=== PATIENT | male | born 1930 | race Caucasian/White ===

== ENCOUNTER 2016-07-26 14:30 | Inpatient (IN) | payer MEDICARE, BC ==
[2016-07-26 14:37] LABS: Glucose,Whole Blood 190 mg/dL (75-99)
[2016-07-26] MEDS ORDERED: SODIUM CHLORIDE 0.9% 1,000 ML IV ONE ×4 (14:48→21:50)
--- NOTE | 2016-07-26 14:48 | ED ---
General Adult HPI - General Chief complaint: Altered Mental Status Stated complaint: unresponsive Time Seen by Provider: 07/26/16 14:30 Source: EMS, RN notes reviewed Mode of arrival: EMS Limitations: no limitations - History of Present Illness Initial comments: This is an 85-year-old male who presents emergency part with past medical history significant for stroke and was sent to a longterm. According to staff there he was conversing with staff approximate hour before he was then found unresponsive. Staff states prior to that he was acting at his baseline in the room no episodes of fever is difficult to breathing or complaints of chest pain or abdominal pain according to staff there was no episodes of vomiting but the patient did have some loose diarrhea and they brought in a sample. Patient is unable to give any history because he is unresponsive though he does respond to painful stimuli with moaning. No other history was available at this time per EMS or patient and there was no family member or staff member present with the patient. - Related Data Home Medications Medication Instructions Recorded Confirmed Insuln Asp Prt/Insulin Aspart 30 units SQ HS 05/29/14 07/26/16 [NovoLOG MIX 70-30 VIAL] Insuln Asp Prt/Insulin Aspart 35 units SQ QAM 05/29/14 07/26/16 [NovoLOG MIX 70-30 VIAL] Lovastatin 40 mg PO HS@2100 05/29/14 07/26/16 hydrALAZINE HCL [Apresoline] 25 mg PO BID 07/05/16 07/26/16 Carbidopa-Levodopa 25-100 mg 1 tab PO BID 07/26/16 07/26/16 [Sinemet 25-100 mg] Cholecalciferol [Vitamin D3] 1,000 unit PO HS 07/26/16 07/26/16 Cyanocobalamin [Vitamin B-12] 500 mcg PO DAILY 07/26/16 07/26/16 Midodrine HCl [ProAmatine] 10 mg PO TID 07/26/16 07/26/16 Omeprazole 20 mg PO DAILY 07/26/16 07/26/16 Previous Rx's Medication Instructions Recorded Metoprolol Tartrate [Lopressor] 25 mg PO BID #1 tab 06/12/14 Allergies Allergy/AdvReac Type Severity Reaction Status Date / Time dipyridamole Allergy Confusion Verified 07/26/16 14:41 [From Persantine] Review of Systems ROS Statement: Those systems with pertinent positive or pertinent negative responses have been documented in the HPI. ROS Other: All systems not noted in ROS Statement are negative. Past Medical History Past Medical History: Coronary Artery Disease (CAD), COPD, Diabetes Mellitus, GERD/Reflux, Hyperlipidemia, Hypertension, Memory Impairment, Myocardial Infarction ([place]), Osteoarthritis (OA), Prostate Disorder, Renal Disease Additional Past Medical History / Comment(s): BASAL CANCER EARLOBES. Last Myocardial Infarction Date:: 2001 History of Any Multi-Drug Resistant Organisms: None Reported Past Surgical History: Appendectomy, Heart Catheterization With Stent, Orthopedic Surgery Additional Past Surgical History / Comment(s): VON CATARACT REMOVAL, LEFT TKA Past Anesthesia/Blood Transfusion Reactions: No Reported Reaction Date of Last Stent Placement:: 2001 Past Psychological History: No Psychological Hx Reported Smoking Status: Former smoker Past Alcohol Use History: None Reported Past Drug Use History: None Reported - Past Family History Brother(s) Family Medical History: Diabetes Mellitus (Patient has half brother with diabetes mellitus type 2.) Father Family Medical History: Unable to Obtain (Patient didn't know much about his father he walked away before he was born.) Mother Family Medical History: Unable to Obtain (Mother of an unknown cause.) Son(s) Family Medical History: No Reported History (Patient has 4 sons no major medical problems) General Exam - General Exam Comments Initial Comments: GENERAL: Patient is well-developed and well-nourished. Patient is nontoxic and well- hydrated and is in no acute distress. Patient is unresponsive to any verbal commands he does moan and groan to painful stimuli ENT: Neck is soft and supple. No significant lymphadenopathy is noted. Oropharynx is clear. Tongue is very dry. Neck has full range of motion without eliciting any pain. EYES: The sclera were anicteric and conjunctiva were pink and moist. Extraocular movements were intact and pupils were equal round and reactive to light. Eyelids were unremarkable. PULMONARY: Unlabored respirations. Good breath sounds bilaterally. No audible rales rhonchi or wheezing was noted. CARDIOVASCULAR: There is a regular rate and rhythm without any murmurs gallops or rubs. ABDOMEN: Soft and nontender with normal bowel sounds. No palpable organomegaly was noted. There is no palpable pulsatile mass. SKIN: Skin is clear with no lesions or rashes and otherwise unremarkable. NEUROLOGIC: Patient patient is unresponsive and will moan and groan and withdraw to painful stimuli. MUSCULOSKELETAL: Normal extremities with adequate strength and full range of motion. No lower extremity swelling or edema. No calf tenderness. LYMPHATICS: No significant lymphadenopathy is noted PSYCHIATRIC: Unable to assess secondary to the patient being unresponsive Limitations: no limitations Course Vital Signs 07/26/16 07/26/16 07/26/16 14:31 15:52 16:18 Temperature 99.1 F 101.4 F H Pulse Rate 99 90 Respiratory 18 18 Rate Blood Pressure 108/58 116/68 O2 Sat by Pulse 93 L 97 Oximetry Medical Decision Making - Medical Decision Making EKG showed sinus rhythm with occasional PAC at 90 bpm KS interval is on a 56 dresses 86 QT interval 354 QTC is 451. Patient's EKG shows no ST segment elevation or depression or T-wave abdomen is noted. I spoke with the patient's and she did not want any CPR were placed and the patient on a ventilator. Patient's chest x-ray showed no acute amount. He. Patient was septic started on Levaquin given 3 L of fluid spoke with Dr. Rogers get the patient admitted spoke with the ICU doctor. I wrote admitting orders - Lab Data Result diagrams: 07/26/16 14:39 07/26/16 14:39 Lab Results 07/26/16 07/26/16 07/26/16 Range/Units 14:36 14:39 14:39 WBC 19.2 H (3.8-10.6) k/uL RBC 5.43 (4.30-5.90) m/uL Hgb 16.3 (13.0-17.5) gm/dL Hct 50.4 (39.0-53.0) % MCV 92.8 (80.0-100.0) fL MCH 30.0 (25.0-35.0) pg MCHC 32.3 (31.0-37.0) g/dL RDW 14.8 (11.5-15.5) % Plt Count 188 (150-450) k/uL Neutrophils % 87 % Lymphocytes % 5 % Monocytes % 5 % Eosinophils % 0 % Basophils % 0 % Neutrophils # 16.8 H (1.3-7.7) k/uL Lymphocytes # 1.0 (1.0-4.8) k/uL Monocytes # 1.0 (0-1.0) k/uL Eosinophils # 0.0 (0-0.7) k/uL Basophils # 0.0 (0-0.2) k/uL PT (9.0-12.0) sec INR (<1.1) APTT (22.0-30.0) sec Sodium (137-145) mmol/L Potassium (3.5-5.1) mmol/L Chloride (98-107) mmol/L Carbon Dioxide (22-30) mmol/L Anion Gap mmol/L BUN (9-20) mg/dL Creatinine (0.66-1.25) mg/dL Est GFR (MDRD) Af Amer (>60 ml/min/1.73 sqM) Est GFR (MDRD) Non-Af (>60 ml/min/1.73 sqM) Glucose (74-99) mg/dL POC Glucose (mg/dL) 190 H (75-99) mg/dL POC Glu Telephone Exchange Operator ID [place] Miranda Plasma Lactic Acid Yovanny (0.7-2.0) mmol/L Calcium (8.4-10.2) mg/dL Total Bilirubin (0.2-1.3) mg/dL AST (17-59) U/L ALT (21-72) U/L Alkaline Phosphatase (38-126) U/L Total Creatine Kinase 24 L (55-170) U/L CK-MB (CK-2) 0.4 (0.0-2.4) ng/mL CK-MB (CK-2) Rel Index 1.7 Troponin I 0.148 H* (0.000-0.034) ng/mL Total Protein (6.3-8.2) g/dL Albumin (3.5-5.0) g/dL 07/26/16 07/26/16 07/26/16 Range/Units 14:39 14:39 14:39 WBC (3.8-10.6) k/uL RBC (4.30-5.90) m/uL Hgb (13.0-17.5) gm/dL Hct (39.0-53.0) % MCV (80.0-100.0) fL MCH (25.0-35.0) pg MCHC (31.0-37.0) g/dL RDW (11.5-15.5) % Plt Count (150-450) k/uL Neutrophils % % Lymphocytes % % Monocytes % % Eosinophils % % Basophils % % Neutrophils # (1.3-7.7) k/uL Lymphocytes # (1.0-4.8) k/uL Monocytes # (0-1.0) k/uL Eosinophils # (0-0.7) k/uL Basophils # (0-0.2) k/uL PT 32.9 H (9.0-12.0) sec INR 3.4 (<1.1) APTT 32.4 H (22.0-30.0) sec Sodium 145 (137-145) mmol/L Potassium 4.6 (3.5-5.1) mmol/L Chloride 105 (98-107) mmol/L Carbon Dioxide 20 L (22-30) mmol/L Anion Gap 20 mmol/L BUN 53 H (9-20) mg/dL Creatinine 3.90 H (0.66-1.25) mg/dL Est GFR (MDRD) Af Amer 18 (>60 ml/min/1.73 sqM) Est GFR (MDRD) Non-Af 15 (>60 ml/min/1.73 sqM) Glucose 205 H (74-99) mg/dL POC Glucose (mg/dL) (75-99) mg/dL POC Glu Telephone Exchange Operator ID Plasma Lactic Acid Yovanny 4.0 H* (0.7-2.0) mmol/L Calcium 8.5 (8.4-10.2) mg/dL Total Bilirubin 1.5 H (0.2-1.3) mg/dL AST 27 (17-59) U/L ALT 23 (21-72) U/L Alkaline Phosphatase 87 (38-126) U/L Total Creatine Kinase (55-170) U/L CK-MB (CK-2) (0.0-2.4) ng/mL CK-MB (CK-2) Rel Index Troponin I (0.000-0.034) ng/mL Total Protein 6.3 (6.3-8.2) g/dL Albumin 3.0 L (3.5-5.0) g/dL Critical Care Time Critical Care Time: Yes Total Critical Care Time: 35 Disposition Clinical Impression: Urinary tract infection, Sepsis, Diarrhea Disposition: ADMITTED IP TO THIS HOSP Referrals: Marilyn Schofield MD [Primary Care Provider] - 1-2 days Time of Disposition: 16:40
[2016-07-26 15:26] LABS: Basophils % (A) 0 %; CHCM 32.5; Eosinophils % (A) 0 %; HCT 50.4 % (39.0-53.0); HDW 2.56; HGB 16.3 gm/dL (13.0-17.5); INR 3.4 (<1.1); Luc # (Auto) 0.43; Luc % (Auto) 2; Lymphocytes % (A) 5 %; MCHC 32.3 g/dL (31.0-37.0); MCV 92.8 fL (80.0-100.0); Monocytes % (A) 5 %; Neutrophils # (A) 16.8 k/uL (1.3-7.7); Neutrophils % (A) 87 %; Partial Thromboplastin Time 32.4 sec (22.0-30.0); Prothrombin Time 32.9 sec (9.0-12.0); RBC 5.43 m/uL (4.30-5.90); RDW 14.8 % (11.5-15.5); WBC 19.2 k/uL (3.8-10.6); WBC (Perox) 19.51
[2016-07-26 15:29] LABS: Calcium 8.5 mg/dL (8.4-10.2); Potassium 4.6 mmol/L (3.5-5.1); Total Bilirubin 1.5 mg/dL (0.2-1.3); Total Protein 6.3 g/dL (6.3-8.2)
--- NOTE | 2016-07-26 15:31 | CT ---
EXAMINATION TYPE: CT brain wo con DATE OF EXAM: 07/26/2016 3:22 PM COMPARISON: NONE INDICATION: Patient poor historian DLP: 1289.5 mGycm, Automated exposure control for dose reduction was used. CONTRAST: None CT of the brain is performed utilizing 3 mm thick sections through the posterior fossa and 3 mm thick sections through the remaining calvarium. Study is performed within 24 hours of arrival to the hosp ital. No abnormal hyperdensity is present to suggest an acute intracranial hemorrhage. No mass lesion is evident. No acute infarcts are evident. There is an old right basal ganglion lacunar infarct present. Perivent ricular white matter hypodensity is present compatible with chronic white matter ischemic changes. Ventricles and sulci are prominent for the patient age. Paranasal sinuses and mastoid air cells within the [id number] are clear. IMPRESSIONS: 1. Atrophy with chronic appearing white matter ischemic changes and old right basal ganglion infarc t. Findings are stable from 2011.
--- NOTE | 2016-07-26 15:35 | XR ---
EXAMINATION TYPE: XR chest 2V DATE OF EXAM: 07/26/2016 3:24 PM COMPARISON: 07/05/2016 INDICATION: Altered mental status found unresponsive TECHNIQUE: Frontal and lateral views of the chest are obtained. FINDINGS: The heart size is normal. The pulmonary vasculature is normal. There appears to be some atelectasis at the right lung base. Previous left lung base infiltrate is re solved. A 1.3 cm nodule is at the left lung base. IMPRESSION: 1. Mild atelectasis right lung base. 2. Stable nodule left lung base.
[2016-07-26 15:53] LABS: Creatine Kinase MB 0.4 ng/mL (0.0-2.4); Troponin I 0.148 ng/mL (0.000-0.034)
[2016-07-26] MEDS ORDERED: LEVOFLOXACIN 750MG-D5W PMX 750 MG in DEXTROSE/WATER 1 150ML.BAG IVPB STA (15:56)
[2016-07-26] MEDS ORDERED: LEVOFLOXACIN 750MG-D5W PMX 750 MG in DEXTROSE/WATER 1 150ML.BAG IVPB SCH (16:00)
[2016-07-26] MEDS ORDERED: IV VANCOMYCIN PER PHARMACY 1 EACH MISC MISCELLANE PRN (16:50)
[2016-07-26] MEDS ORDERED: VANCOMYCIN 1,750 MG in SODIUM CHLORIDE 0.9% 250 ML IVPB STA (16:56)
[2016-07-26 17:16] LABS: Bacteria,Urine Rare /hpf; Particle Count 558955; WBC,Urine >182 /hpf (0-5)
[2016-07-26 17:44] LABS: Glucose,Whole Blood 182 mg/dL (75-99)
[2016-07-26] MEDS: SODIUM CHLORIDE 0.9% 1,000 ML IV SCH (17:54)
[2016-07-26 20:39] LABS: INR 3.7 (<1.1); Partial Thromboplastin Time 33.4 sec (22.0-30.0); Prothrombin Time 36.4 sec (9.0-12.0)
[2016-07-26 20:55] LABS: Creatine Kinase MB 0.8 ng/mL (0.0-2.4)
[2016-07-26 20:59] LABS: Troponin I 0.142 ng/mL (0.000-0.034)
[2016-07-26] MEDS ORDERED: IPRATROPIUM-ALBUTEROL 3 ML NEB INHALATION PRN (23:03)
[2016-07-27] MEDS ORDERED: IPRATROPIUM-ALBUTEROL 3 ML NEB INHALATION SCH
[2016-07-27 00:06] LABS: Glucose,Whole Blood 135 mg/dL (75-99)
[2016-07-27] MEDS: INSULIN LISPRO (humaLOG) 300 UNIT/3 ML VIAL SQ SCH ×4 (00:23→17:51)
[2016-07-27] MEDS: METOPROLOL TARTRATE 5 MG/5 ML VIAL IVP SCH ×3 (00:50→23:35)
[2016-07-27] MEDS: SODIUM CHLORIDE 0.9% 1,000 ML IV SCH ×2 (03:15→15:23)
[2016-07-27 04:05] LABS: Basophils % (A) 0 %; CH 29.7; CHCM 31.9; Eosinophils % (A) 0 %; HDW 2.66; HGB 14.9 gm/dL (13.0-17.5); Luc # (Auto) 0.37; Luc % (Auto) 2; Lymphocytes # (A) 0.9 k/uL (1.0-4.8); Lymphocytes % (A) 4 %; MCH 29.6 pg (25.0-35.0); MCHC 31.6 g/dL (31.0-37.0); MCV 93.7 fL (80.0-100.0); Monocytes # (A) 1.8 k/uL (0-1.0); Monocytes % (A) 8 %; Neutrophils # (A) 19.1 k/uL (1.3-7.7); Neutrophils % (A) 86 %; RBC 5.02 m/uL (4.30-5.90); RDW 14.8 % (11.5-15.5); WBC 22.1 k/uL (3.8-10.6); WBC (Perox) 21.91
[2016-07-27 04:14] LABS: INR 3.7 (<1.1); Partial Thromboplastin Time 32.8 sec (22.0-30.0); Prothrombin Time 36.5 sec (9.0-12.0)
[2016-07-27 04:15] LABS: Calcium 7.6 mg/dL (8.4-10.2); Phosphorous 4.5 mg/dL (2.5-4.5); Potassium 3.9 mmol/L (3.5-5.1); Total Bilirubin 1.1 mg/dL (0.2-1.3); Total Protein 5.3 g/dL (6.3-8.2)
[2016-07-27 05:02] LABS: Troponin I 0.123 ng/mL (0.000-0.034)
[2016-07-27] MEDS ORDERED: SODIUM CHLORIDE 0.9% 1,000 ML IV ONE (05:27)
[2016-07-27 06:17] LABS: Glucose,Whole Blood 124 mg/dL (75-99)
[2016-07-27] MEDS: INSULN ASP PRT/INSULIN ASPART 100 UNIT/ML 10 ML VIAL SQ SCH ×3 (06:18→21:25)
[2016-07-27] MEDS ORDERED: Potassium Replacement Protocol 1 EACH MISC MISCELLANE PRN (08:00)
--- NOTE | 2016-07-27 08:27 | XR ---
EXAMINATION TYPE: XR chest 1V DATE OF EXAM: 07/27/2016 6:49 AM COMPARISON: 07/26/2016 HISTORY: Shortness of breath TECHNIQUE: Single frontal view of the chest is obtained. FINDINGS: There is left lower lobe infiltrate. Tiny effusion noted. Underlying COPD noted. No pneumo thorax. Degenerative change of the spine. IMPRESSION: 1. Left lower lobe infiltrate and small effusion.
[2016-07-27] MEDS: IPRATROPIUM-ALBUTEROL 3 ML NEB INHALATION SCH ×4 (08:48→19:08)
[2016-07-27] MEDS: POTASSIUM CHLORIDE 10 MEQ, LIDOCAINE 2% INJ 10 MG in SODIUM CHLORIDE 0.9% 100 ML IV SCH ×2 (09:28→10:57)
[2016-07-27] MEDS: PANTOPRAZOLE 40 MG/10 ML VIAL IV SCH (09:29)
[2016-07-27] MEDS ORDERED: METOPROLOL TARTRATE 25 MG TAB PO SCH (10:30)
[2016-07-27] MEDS ORDERED: Magnesium Replacement Protocol 1 EACH MISC MISCELLANE PRN (10:42)
[2016-07-27] MEDS: PIPERACILLIN-TAZOBACTAM 3.375 GM in DEXTROSE/WATER 1 50ML.BAG IVPB SCH ×2 (10:54→21:38)
--- NOTE | 2016-07-27 11:28 | P.NPCON ---
History of Present Illness - Reason for Consult Consult date: 07/27/16 acute renal failure - Chief Complaint Acute kidney injury and hypotension - History of Present Illness This is a 85-year-old male seen in consultation because of acute kidney injury. His creatinine was 3.9 yesterday, was 1.2. Days ago on 07/10/2016. He came in with history of syncope and was thought to have had a stroke. But at the time of this exam a few hours later he is able to move all his extremities and follows commands. He is oriented 3. He denies any fever chills cough shortness of breath nausea vomiting. He is still is very slow in responding Does seem to have some abdominal discomfort. His past history significant for UTI recently with Pseudomonas on 07/05/2016 3 weeks ago. A computed tomography scan showed a 5 cm aneurysm in 2013. There is a left ureteral stent in 2013 CT. This is no been followed up to the best of my knowledge based on EMR. . His past history significant for coronary artery disease diabetes mellitus COPD prostatism history of acute [place] heart catheterization with stent and as mentioned above left ureteral stent seen on computed tomography scan in 2013. Past Medical History Past Medical History: Coronary Artery Disease (CAD), COPD, Diabetes Mellitus, GERD/Reflux, Hyperlipidemia, Hypertension, Memory Impairment, Myocardial Infarction ([place]), Osteoarthritis (OA), Prostate Disorder, Renal Disease Additional Past Medical History / Comment(s): BASAL CANCER EARLOBES. Last Myocardial Infarction Date:: 2001 History of Any Multi-Drug Resistant Organisms: None Reported Past Surgical History: Appendectomy, Heart Catheterization With Stent, Orthopedic Surgery Additional Past Surgical History / Comment(s): VON CATARACT REMOVAL, LEFT TKA Past Anesthesia/Blood Transfusion Reactions: No Reported Reaction Date of Last Stent Placement:: 2001 Past Psychological History: No Psychological Hx Reported Smoking Status: Former smoker Past Alcohol Use History: None Reported Past Drug Use History: None Reported - Past Family History Brother(s) Family Medical History: Diabetes Mellitus Father Family Medical History: Unable to Obtain Mother Family Medical History: Unable to Obtain Son(s) Family Medical History: No Reported History Medications and Allergies Home Medications Medication Instructions Recorded Confirmed Type Insuln Asp Prt/Insulin Aspart 30 units SQ HS 05/29/14 07/26/16 History [NovoLOG MIX 70-30 VIAL] Insuln Asp Prt/Insulin Aspart 35 units SQ QAM 05/29/14 07/26/16 History [NovoLOG MIX 70-30 VIAL] Lovastatin 40 mg PO HS@2100 05/29/14 07/26/16 History hydrALAZINE HCL [Apresoline] 25 mg PO BID 07/05/16 07/26/16 History Carbidopa-Levodopa 25-100 mg 1 tab PO BID 07/26/16 07/26/16 History [Sinemet 25-100 mg] Cholecalciferol [Vitamin D3] 1,000 unit PO HS 07/26/16 07/26/16 History Cyanocobalamin [Vitamin B-12] 500 mcg PO DAILY 07/26/16 07/26/16 History Midodrine HCl [ProAmatine] 10 mg PO TID 07/26/16 07/26/16 History Omeprazole 20 mg PO DAILY 07/26/16 07/26/16 History Allergies Allergy/AdvReac Type Severity Reaction Status Date / Time dipyridamole Allergy Confusion Verified 07/26/16 14:41 [From Persantine] Physical Exam Vitals: Vital Signs Temp Pulse Pulse Resp BP BP Pulse Ox 07/27/16 10:00 88 28 H 95/55 94 L 07/27/16 09:02 87 07/27/16 09:00 85 27 H 87/51 98 07/27/16 08:50 94 L 07/27/16 08:49 85 07/27/16 08:00 97.9 F 86 27 H 98/53 94 L 07/27/16 07:00 91 25 H 103/49 93 L 07/27/16 06:00 82 24 112/60 94 L 07/27/16 05:00 78 20 98/57 92 L 07/27/16 04:00 97.3 F L 87 24 129/63 92 L 07/27/16 03:00 81 23 91/49 93 L 07/27/16 02:00 81 22 101/60 93 L 07/27/16 01:00 79 23 100/51 92 L 07/27/16 00:00 97.8 F 82 24 108/51 93 L 07/26/16 23:00 84 23 108/57 92 L 07/26/16 22:00 81 18 109/57 93 L 07/26/16 21:00 83 20 110/53 92 L 07/26/16 20:00 98.4 F 82 18 99/57 93 L 07/26/16 19:00 82 29 H 93/52 94 L 07/26/16 18:30 89 28 H 93/52 94 L 07/26/16 18:00 98.6 F 87 103/55 94 L 07/26/16 17:56 98.6 F 87 19 103/55 94 L 07/26/16 17:40 87 07/26/16 17:08 97.9 F 87 18 116/59 96 Intake and Output 07/26/16 07/27/16 07/27/16 22:59 06:59 14:59 Intake Total 500 2700 460 Output Total 45 147 100 Balance 455 2553 360 Intake: IV 500 700 300 Sodium Chloride 0.9% 1, 500 700 300 000 ml @ 100 mls/hr IV . Q10H [facility] Rx#:[id number] Intake, IV Titration 2000 100 Amount Potassium Chloride 10 meq 100 Lidocaine 2% Inj 10 mg In Sodium Chloride 0.9% 100 ml @ 100 mls/hr IV Q1HR [facility] Rx#:[id number] Sodium Chloride 0.9% 1, 1000 000 ml @ 999 mls/hr IV . Q1H1M [facility] Rx#:[id number] Sodium Chloride 0.9% 1, 1000 000 ml @ 999 mls/hr IV . Q1H1M [facility] Rx#:[id number] Oral 60 Output: Urine 45 147 100 Other: Voiding Method Indwelling Catheter Indwelling Catheter Indwelling Catheter # Bowel Movements 2 2 Weight 94.9 kg 96.2 kg 96.2 kg Patient Weight 06:59 Weight 96.2 kg On examination he is arousable follows commands but is slow. HEENT exam no JVP neck is supple no facial asymmetry pupils are equal. Lungs are clear to auscultation fair air entry bilaterally Heart sounds are unremarkable no murmur rub gallop. Abdomen is soft nontender except on the left upper quadrant there is some mild tenderness. Bowel sounds are diminished no masses felt. Extremity exam reveals no edema. Warm to touch. Neurologically he is arousable follows commands is oriented 3 is only weak but no focal motor deficit. Results - Lab Results Most recent lab results Calcium 7.6 mg/dL (8.4-10.2) L 07/27/16 03:33 Phosphorus 4.5 mg/dL (2.5-4.5) 07/27/16 03:33 Magnesium 2.0 mg/dL (1.6-2.3) 07/27/16 03:33 07/27/16 03:33 07/27/16 03:33 Assessment and Plan Plan: Impression. 1. Acute kidney injury with creatinine 3.9 minimal urine output. ATN from sepsis and low blood pressure. Has been given 5 L of fluid without any improvement in his urine output 2. Possible UTI. He had Pseudomonas UTI dated 07/05/20 16. Previous computed tomography scan 2013 showed a left ureteral stent. 3. Mild CK D with a creatinine of 1.2 dated 07/10/2016. 4. Abdominal aortic aneurysm 5 cm based on computed tomography scan 2013 5. Mild gap acidosis with an anion gap of 20 and a bicarb of 20 suggestive of further metabolic alkalosis. The cause of the gap acidosis from septic syndrome and the metabolic alkalosis may be from diuretics. 6. Lactic acidosis lactic acid is 4. 7. Hypotension likely from sepsis troponin is 0.13. Recommendation. Because of significant volume depletion and no urine output further IV fluids might induce pulmonary edema and therefore I would suggest starting him on levo fed. Also obtain computed tomography scan of the abdomen to rule out any hydronephrosis with the previous computed tomography scan 2013 showing a 5 cm aneurysm and a left ureteral stent. Also he had a recent Pseudomonas UTI. Avoid vancomycin.
[2016-07-27] MEDS: NOREPINEPHRINE 4 MG in SODIUM CHLORIDE 0.9% 250 ML IV SCH (12:03)
[2016-07-27] MEDS: CARBIDOPA-LEVODOPA 25-100 MG 1 EACH TAB PO SCH ×2 (12:07→21:25)
[2016-07-27 12:10] LABS: Glucose,Whole Blood 140 mg/dL (75-99)
[2016-07-27 12:16] LABS: Hemoglobin A1C 6.6 % (4.2-6.1)
[2016-07-27] MEDS: MAGNESIUM SULFATE-D5W PMX 1 GM in DEXTROSE/WATER 1 100ML.BAG IVPB SCH ×2 (12:30→15:21)
--- NOTE | 2016-07-27 12:59 | P.HPIM ---
History of Present Illness H&P Date: 07/27/16 Chief Complaint: GIANLUCA/CKD3/UTI with sepsis. This is an 85-year-old male with a previous medical history significant for coronary artery disease status post PCI and stent placement, hypertension and hypertensive cardiovascular disease with left ventricular hypertrophy, hyperlipidemia, history of osteoarthritis, history of kidney stones , enlarged prostate, 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 Patient fell again last night about 9:30 she states he started to fall and she helped him to the floor slowly there was no injury. Patient was unable to get up so she laid a blanket on the floor in a pillow and let him sleep here overnight. This morning she called EMS to help him off the floor and wanted him brought to the hospital checked out and hopefully get her some assistance. he was found to have a significant urinary tract infection with sepsis, chest x-ray showed a tiny left lower lobe infiltrate with a left-sided pleural effusion with the nodules in the lung did not change from 2013. Patient was admitted to the hospital urine culture was done as well as blood culture he was placed on IV antibiotic in the form of Levaquin 750 mg IV piggyback every 24 hours subsequently the patient was discharged to [facility] for physical therapy and rehabilitation under Dr. Schofield service, and the patient was sent into the emergency department at [facility] yesterday because of severe sepsis with acute kidney injury and top of chronic kidney disease he was admitted to the intensive care unit, he was given IV fluid he was seen and evaluated by nephrology because of his acute kidney injury , he was started on IV antibiotic in the form of vancomycin he was taken off his Levaquin, unfortunately patient last hospitalization showed Pseudomonas that resistant to fluoroquinolones and the patient was maintained on Levaquin. Review of Systems Constitutional: Reports chills, Reports chronic pain, Reports fatigue, Reports fever, Reports lethargy, Reports malaise, Reports sweats, Reports weakness, Reports weight loss Eyes: denies blurred vision, denies bulging eye, denies decreased vision Ears: bilateral: decreased hearing Ears, nose, mouth and throat: Denies dysphagia, Denies neck lump, Denies sore throat Cardiovascular: Reports decreased exercise tolerance, Reports dyspnea on exertion, Reports high blood pressure, Reports shortness of breath, Denies chest pain, Denies phlebitis, Denies rapid heart beat, Denies syncope Respiratory: Reports dyspnea, Denies congestion, Denies cough, Denies cough with sputum, Denies home oxygen, Denies sleep apnea, Denies snoring, Denies wheezing Gastrointestinal: Reports abdominal pain, Reports bloating, Reports change in bowel habits, Reports diarrhea, Reports excessive gas, Reports indigestion, Reports loss of appetite, Reports nausea, Denies vomiting Genitourinary: Reports dysuria, Reports nocturia, Reports polyuria Musculoskeletal: Reports atrophy, Reports frequent falls, Reports gait dysfunction, Reports low back pain Musculoskeletal: absent: ankle pain, ankle stiffness, ankle swelling, elbow pain , elbow stiffness, elbow swelling, foot pain, foot stiffness, foot swelling, hand pain, hand stiffness, hand swelling, hip pain, hip stiffness, hip swelling , knee pain, knee stiffness, knee swelling, shoulder pain, shoulder stiffness, shoulder swelling, wrist pain, wrist stiffness, wrist swelling Integumentary: Denies pruritus, Denies rash Neurological: Reports confusion, Reports gait dysfunction, Reports memory loss, Reports motor disturbance, Reports spasticity, Reports tremors, Reports weakness Psychiatric: Reports anxiety, Reports memory loss, Denies depression, Denies suicidal ideation Endocrine: Denies fatigue, Denies weight change Past Medical History Past Medical History: Coronary Artery Disease (CAD), COPD, Diabetes Mellitus, GERD/Reflux, Hyperlipidemia, Hypertension, Memory Impairment, Myocardial Infarction ([place]), Neurologic Disorder (Parkinson), Osteoarthritis (OA), Prostate Disorder, Renal Disease Additional Past Medical History / Comment(s): BASAL CANCER EARLOBES. Last Myocardial Infarction Date:: 2001 History of Any Multi-Drug Resistant Organisms: None Reported Past Surgical History: Appendectomy, Heart Catheterization With Stent, Orthopedic Surgery Additional Past Surgical History / Comment(s): VON CATARACT REMOVAL, LEFT TKA Past Anesthesia/Blood Transfusion Reactions: No Reported Reaction Date of Last Stent Placement:: 2001 Past Psychological History: No Psychological Hx Reported Smoking Status: Former smoker Past Alcohol Use History: None Reported Past Drug Use History: None Reported - Past Family History Brother(s) Family Medical History: Diabetes Mellitus Father Family Medical History: Unable to Obtain Mother Family Medical History: Unable to Obtain Son(s) Family Medical History: No Reported History Medications and Allergies Home Medications Medication Instructions Recorded Confirmed Type Insuln Asp Prt/Insulin Aspart 30 units SQ HS 05/29/14 07/26/16 History [NovoLOG MIX 70-30 VIAL] Insuln Asp Prt/Insulin Aspart 35 units SQ QAM 05/29/14 07/26/16 History [NovoLOG MIX 70-30 VIAL] Lovastatin 40 mg PO HS@2100 05/29/14 07/26/16 History hydrALAZINE HCL [Apresoline] 25 mg PO BID 07/05/16 07/26/16 History Carbidopa-Levodopa 25-100 mg 1 tab PO BID 07/26/16 07/26/16 History [Sinemet 25-100 mg] Cholecalciferol [Vitamin D3] 1,000 unit PO HS 07/26/16 07/26/16 History Cyanocobalamin [Vitamin B-12] 500 mcg PO DAILY 07/26/16 07/26/16 History Midodrine HCl [ProAmatine] 10 mg PO TID 07/26/16 07/26/16 History Omeprazole 20 mg PO DAILY 07/26/16 07/26/16 History Allergies Allergy/AdvReac Type Severity Reaction Status Date / Time dipyridamole Allergy Confusion Verified 07/26/16 14:41 [From Persantine] Physical Exam Vitals: Vital Signs Temp Pulse Pulse Resp BP BP Pulse Ox 07/27/16 12:28 88 07/27/16 12:09 89 07/27/16 11:00 98.2 F 90 31 H 77/60 95 07/27/16 10:00 88 28 H 95/55 94 L 07/27/16 09:02 87 07/27/16 09:00 85 27 H 87/51 98 07/27/16 08:50 94 L 07/27/16 08:49 85 07/27/16 08:00 97.9 F 86 27 H 98/53 94 L 07/27/16 07:00 91 25 H 103/49 93 L 07/27/16 06:00 82 24 112/60 94 L 07/27/16 05:00 78 20 98/57 92 L 07/27/16 04:00 97.3 F L 87 24 129/63 92 L 07/27/16 03:00 81 23 91/49 93 L 07/27/16 02:00 81 22 101/60 93 L 07/27/16 01:00 79 23 100/51 92 L 07/27/16 00:00 97.8 F 82 24 108/51 93 L 07/26/16 23:00 84 23 108/57 92 L 07/26/16 22:00 81 18 109/57 93 L 07/26/16 21:00 83 20 110/53 92 L 07/26/16 20:00 98.4 F 82 18 99/57 93 L 07/26/16 19:00 82 29 H 93/52 94 L 07/26/16 18:30 89 28 H 93/52 94 L 07/26/16 18:00 98.6 F 87 103/55 94 L 07/26/16 17:56 98.6 F 87 19 103/55 94 L 07/26/16 17:40 87 07/26/16 17:08 97.9 F 87 18 116/59 96 Intake and Output 07/26/16 07/27/16 07/27/16 22:59 06:59 14:59 Intake Total 500 2700 692.5 Output Total 45 147 145 Balance 455 2553 547.5 Intake: IV 500 700 500 Sodium Chloride 0.9% 1, 500 700 500 000 ml @ 100 mls/hr IV . Q10H [facility] Rx#:[id number] Intake, IV Titration 2000 132.5 Amount Norepinephrine 4 mg In 7.5 Sodium Chloride 0.9% 250 ml @ Titrate IV .Q0M [facility] Rx#:[id number] Piperacillin-Tazobactam 3 25.0 .375 gm In Dextrose/Water 1 50ml.bag @ 12.5 mls/hr IVPB Q12HR [facility] Rx#: [id number] Potassium Chloride 10 meq 100 Lidocaine 2% Inj 10 mg In Sodium Chloride 0.9% 100 ml @ 100 mls/hr IV Q1HR [facility] Rx#:[id number] Sodium Chloride 0.9% 1, 1000 000 ml @ 999 mls/hr IV . Q1H1M [facility] Rx#:[id number] Sodium Chloride 0.9% 1, 1000 000 ml @ 999 mls/hr IV . Q1H1M [facility] Rx#:[id number] Oral 60 Output: Urine 45 147 145 Other: Voiding Method Indwelling Catheter Indwelling Catheter Indwelling Catheter # Bowel Movements 2 3 Weight 94.9 kg 96.2 kg 96.2 kg Patient Weight 07/28/16 06:59 Weight 96.2 kg - Constitutional General appearance: average body habitus, severe distress - EENT Eyes: anicteric sclerae, PERRLA, no ptosis, no scleral icterus, normal appearance ENT: hard of hearing, normal oropharynx, no thrush Ears: bilateral: normal - Neck Neck: no lymphadenopathy, normal ROM, no rigidity, no stridor, no thyromegaly Carotids: bilateral: upstroke delayed Thyroid: bilateral: normal size - Respiratory Respiratory: bilateral: diminished, dullness, rales, rhonchi, wheezing, prolonged expiration - Cardiovascular Rhythm: regular Heart sounds: normal: S1, S2 Abnormal Heart Sounds: systolic murmur, no S3 Gallop, no S4 Gallop - Gastrointestinal General gastrointestinal: decreased bowel sounds, distended, rigid, tenderness, no umbilical hernia, no ventral hernia Localized gastrointestinal: tender: diffuse - Integumentary Integumentary: flushed - Neurologic Neurologic: CNII-XII intact - Musculoskeletal Musculoskeletal: generalized weakness, strength equal bilaterally - Psychiatric Psychiatric: no A&O x's 3, no appropriate affect, no intact judgment & insight Results CBC & Chem 7: 07/27/16 03:33 07/27/16 03:33 Labs: Abnormal Lab Results - Last 24 Hours (Table) 07/26/16 07/26/16 07/26/16 Range/Units 16:55 17:41 20:08 WBC (3.8-10.6) k/uL Plt Count (150-450) k/uL Neutrophils # (1.3-7.7) k/uL Lymphocytes # (1.0-4.8) k/uL Monocytes # (0-1.0) k/uL PT 36.4 H (9.0-12.0) sec APTT 33.4 H (22.0-30.0) sec Sodium (137-145) mmol/L Chloride (98-107) mmol/L Carbon Dioxide (22-30) mmol/L BUN (9-20) mg/dL Creatinine (0.66-1.25) mg/dL Glucose (74-99) mg/dL POC Glucose (mg/dL) 182 H (75-99) mg/dL Calcium (8.4-10.2) mg/dL ALT (21-72) U/L Total Creatine Kinase (55-170) U/L Troponin I (0.000-0.034) ng/mL Total Protein (6.3-8.2) g/dL Albumin (3.5-5.0) g/dL Urine WBC >182 H (0-5) /hpf Urine WBC Clumps Many H (None) /hpf Urine Bacteria Rare H (None) /hpf 07/26/16 07/27/16 07/27/16 Range/Units 20:08 00:03 03:33 WBC (3.8-10.6) k/uL Plt Count (150-450) k/uL Neutrophils # (1.3-7.7) k/uL Lymphocytes # (1.0-4.8) k/uL Monocytes # (0-1.0) k/uL PT (9.0-12.0) sec APTT (22.0-30.0) sec Sodium (137-145) mmol/L Chloride (98-107) mmol/L Carbon Dioxide (22-30) mmol/L BUN (9-20) mg/dL Creatinine (0.66-1.25) mg/dL Glucose (74-99) mg/dL POC Glucose (mg/dL) 135 H (75-99) mg/dL Calcium (8.4-10.2) mg/dL ALT (21-72) U/L Total Creatine Kinase 45 L 40 L (55-170) U/L Troponin I 0.142 H* 0.123 H* (0.000-0.034) ng/mL Total Protein (6.3-8.2) g/dL Albumin (3.5-5.0) g/dL Urine WBC (0-5) /hpf Urine WBC Clumps (None) /hpf Urine Bacteria (None) /hpf 07/27/16 07/27/16 07/27/16 Range/Units 03:33 03:33 03:33 WBC 22.1 H (3.8-10.6) k/uL Plt Count 139 L (150-450) k/uL Neutrophils # 19.1 H (1.3-7.7) k/uL Lymphocytes # 0.9 L (1.0-4.8) k/uL Monocytes # 1.8 H (0-1.0) k/uL PT 36.5 H (9.0-12.0) sec APTT 32.8 H (22.0-30.0) sec Sodium 147 H (137-145) mmol/L Chloride 115 H (98-107) mmol/L Carbon Dioxide 17 L (22-30) mmol/L BUN 62 H (9-20) mg/dL Creatinine 3.40 H (0.66-1.25) mg/dL Glucose 150 H (74-99) mg/dL POC Glucose (mg/dL) (75-99) mg/dL Calcium 7.6 L (8.4-10.2) mg/dL ALT 17 L (21-72) U/L Total Creatine Kinase (55-170) U/L Troponin I (0.000-0.034) ng/mL Total Protein 5.3 L (6.3-8.2) g/dL Albumin 2.4 L (3.5-5.0) g/dL Urine WBC (0-5) /hpf Urine WBC Clumps (None) /hpf Urine Bacteria (None) /hpf 07/27/16 07/27/16 Range/Units 06:14 12:08 WBC (3.8-10.6) k/uL Plt Count (150-450) k/uL Neutrophils # (1.3-7.7) k/uL Lymphocytes # (1.0-4.8) k/uL Monocytes # (0-1.0) k/uL PT (9.0-12.0) sec APTT (22.0-30.0) sec Sodium (137-145) mmol/L Chloride (98-107) mmol/L Carbon Dioxide (22-30) mmol/L BUN (9-20) mg/dL Creatinine (0.66-1.25) mg/dL Glucose (74-99) mg/dL POC Glucose (mg/dL) 124 H 140 H (75-99) mg/dL Calcium (8.4-10.2) mg/dL ALT (21-72) U/L Total Creatine Kinase (55-170) U/L Troponin I (0.000-0.034) ng/mL Total Protein (6.3-8.2) g/dL Albumin (3.5-5.0) g/dL Urine WBC (0-5) /hpf Urine WBC Clumps (None) /hpf Urine Bacteria (None) /hpf Thrombosis Risk Factor Assmnt - DVT/VTE Prophylaxis DVT/VTE Prophylaxis: Pharmacologic Prophylaxis ordered, Mechanical Prophylaxis ordered - Choose All That Apply Each Factor Represents 1 point: Abnormal pulmonary function (COPD), Medical pt on bed rest, Sepsis (< 1month) Each Risk Factor Represents 3 Points: Age 75 years or older Thrombosis Risk Factor Assessment Total Risk Factor Score: 6 Thrombosis Risk Factor Assessment Level: High Risk Assessment and Plan Plan: Assessment and plan: 1. Urinary tract infection with severe sepsis and possible pseudomonas. ICU, IV fluid resuscitation in the form of normal sitting, Levophed, discontinue Vancomycin, start the patient on Zosyn 2.25 g IV piggyback every 8 hours, urine culture as well as blood culture 2, continue patient also on fluid resuscitation, monitor the patient the CMP, lactic acid, as well as WBC. 2. Leukocytosis secondary to severe sepsis. Continue IV fluid resuscitation, continue IV antibiotic, repeat CBC in the next 24 hours. 3. 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 Continue IV fluid resuscitation, discontinue vancomycin, discontinue Levaquin, continue IV fluid resuscitation, continue Levophed, nephrology consultation, computed tomography scan of the abdomen and pelvis with oral contrast only. 4. Severe abdominal pain with a prior history of abdominal aortic aneurysm back in 2013. We will obtain computed tomography scan of the abdomen and pelvis with oral contrast only. 5. Severe diarrhea. Check the stool for C. difficile, toxins a and B, check the stool culture, continue IV fluid resuscitation, discontinue vancomycin. 6. Anion gap metabolic acidosis as well as metabolic alkalosis. Continue IV fluid resuscitation, discontinue diuretics. 7. Lactic acidosis. Due to sepsis, continue IV fluid, continue IV antibiotic, repeat lactic acid in the next 24 hours. 8. CAD post-PCI. Continue aspirin 81 mg once every day, pravastatin 40, bedtime, hold off metoprolol for now. 9. Hypertension and hypertensive cardiovascular disease. Currently hypotensive we'll hold off antihypertensive medicine. 10. Enlarged prostate. Currently has a Burr catheter in place. 11. Parkinsonism. Currently on Sinemet 25/100 one tablet orally twice every day. 12. Diabetes mellitus type 2 with diabetic polyneuropathy. Continue patient on NovoLog Mix 70/30, continue patient on BGM 4 times every day. 13. DVT prophylaxis. Continue patient on heparin 5000 units subcutaneously every 12 hours. 14. GI prophylaxis. Protonix 40 mg IV push every 24 hours 15. Admit to inpatient. Estimate a length of stay 2 midnights. 16. No code.
--- NOTE | 2016-07-27 14:47 | CT ---
EXAMINATION TYPE: CT abdomen pelvis wo con DATE OF EXAM: 07/27/2016 2:21 PM COMPARISON: 06/06/2014 HISTORY: Bilateral lower quad pain CT DLP: 1328 mGycm Automated exposure control for dose reduction was used. TECHNIQUE: Helical acquisition of images was performed from the lung bases through the pelvis. FINDINGS: LUNG BASES: Bilateral lower lobe infiltrate noted. Coronary artery calcification noted. 8 mm left upp er lobe pulmonary nodule noted. Correlate for history of malignancy. LIVER/GB: Gallbladder is distended with numerous gallstones layering posteriorly.. PANCREAS: No definite abnormality. Inflammatory changes right lower quadrant are felt to be more like ly related to gallbladder but correlate with serum enzymes for confirmation to exclude pancreatitis.. SPLEEN: No significant abnormality is seen. 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 KIDNEYS: 3.9 cm hypodense lesion suggestive of simple cyst within the left kidney stable. RETROPERITONEAL ADENOPATHY: None visualized URINARY BLADDER: Bladder wall is thickened but decompressed. Prostate markedly enlarged. Burr felix ter noted. Cystitis not excluded.. PELVIC ADENOPATHY: None visualized. OSSEOUS STRUCTURES: Severe degenerative change of the spine.. BOWEL: There is thickening of the wall the right colon and transverse colon with some degree of archana colic inflammatory change. Structure within the rectum noted correlate for rectal tube versus foreign body.. OTHER: 4.5 x 4 cm infrarenal abdominal aortic aneurysm. IVC stent noted. Prostate gland is enlarged. Bladder wall is markedly thickened and there is evidence of a Burr catheter. Small amount of ascites seen. IMPRESSION: GALLBLADDER IS DISTENDED WITH SMALL GALLSTONES LAYERING POSTERIORLY. THERE IS INFLAMMATORY CHANGE IN THE RIGHT UPPER QUADRANT WHICH COULD BEEN THE BASIS OF CHOLECYSTITIS, ALTHOUGH, THERE IS TRANSVERSE C OLON AND RIGHT COLON WALL THICKENING. DIFFERENTIAL WOULD BE COLITIS (INFECTIOUS, INFLAMMATORY OR ISCH EMIC) VERSUS CHOLECYSTITIS CORRELATE CLINICALLY. PROBABLE RECTAL TUBE CORRELATE CLINICALLY STABLE-APPEARING 4.5 CM INFRARENAL ABDOMINAL AORTIC ANEURYSM FEW PROMINENT SMALL BOWEL LOOPS ARE SEEN IN THE LEFT UPPER QUADRANT WHICH MAY BE RELATED TO LOCALIZED ILEUS SMALL AMOUNT OF ASCITES. THERE IS A 8 MM LEFT UPPER LOBE PULMONARY NODULE. BILATERAL LOWER LOBE INFILTRATES. SEVERE PROSTATIC HYPERTROPHY. 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 BLADDER CONTENTS SOMEWHA T HYPERDENSE CORRELATE TO EXCLUDE HEMORRHAGE WITHIN THE BLADDER.
--- NOTE | 2016-07-27 14:50 | P.CNPUL ---
History of Present Illness Consult date: 07/27/16 Reason for consult: other (Altered mental status) Chief complaint: Altered mental status History of present illness: This is an 85-year-old male who presented to the emergency department from [facility] for altered mental status. The patient apparently had been having multiple falls. The patient was found emergency department to have turbid urine, hypotension, sepsis. The patient was admitted to the intensive care unit. The patient has been given over 5 L of IV fluids. Urine output remains marginal. He has been started on Levophed at 2 mcg/m. During his last hospitalization in June the patient was found to have a urinary tract infection with Pseudomonas. Review of Systems ROS unobtainable: due to mental status Past Medical History Past Medical History: Coronary Artery Disease (CAD), COPD, Diabetes Mellitus, GERD/Reflux, Hyperlipidemia, Hypertension, Memory Impairment, Myocardial Infarction ([place]), Neurologic Disorder (Parkinson), Osteoarthritis (OA), Prostate Disorder, Renal Disease Additional Past Medical History / Comment(s): BASAL CANCER EARLOBES. Last Myocardial Infarction Date:: 2001 History of Any Multi-Drug Resistant Organisms: None Reported Past Surgical History: Appendectomy, Heart Catheterization With Stent, Orthopedic Surgery Additional Past Surgical History / Comment(s): VON CATARACT REMOVAL, LEFT TKA Past Anesthesia/Blood Transfusion Reactions: No Reported Reaction Date of Last Stent Placement:: 2001 Past Psychological History: No Psychological Hx Reported Smoking Status: Former smoker Past Alcohol Use History: None Reported Past Drug Use History: None Reported - Past Family History Brother(s) Family Medical History: Diabetes Mellitus Father Family Medical History: Unable to Obtain Mother Family Medical History: Unable to Obtain Son(s) Family Medical History: No Reported History Medications and Allergies Home Medications Medication Instructions Recorded Confirmed Type Insuln Asp Prt/Insulin Aspart 30 units SQ HS 05/29/14 07/26/16 History [NovoLOG MIX 70-30 VIAL] Insuln Asp Prt/Insulin Aspart 35 units SQ QAM 05/29/14 07/26/16 History [NovoLOG MIX 70-30 VIAL] Lovastatin 40 mg PO HS@2100 05/29/14 07/26/16 History hydrALAZINE HCL [Apresoline] 25 mg PO BID 07/05/16 07/26/16 History Carbidopa-Levodopa 25-100 mg 1 tab PO BID 07/26/16 07/26/16 History [Sinemet 25-100 mg] Cholecalciferol [Vitamin D3] 1,000 unit PO HS 07/26/16 07/26/16 History Cyanocobalamin [Vitamin B-12] 500 mcg PO DAILY 07/26/16 07/26/16 History Midodrine HCl [ProAmatine] 10 mg PO TID 07/26/16 07/26/16 History Omeprazole 20 mg PO DAILY 07/26/16 07/26/16 History Allergies Allergy/AdvReac Type Severity Reaction Status Date / Time dipyridamole Allergy Confusion Verified 07/26/16 14:41 [From Persantine] Physical Exam Osteopathic Statement: *. No significant issues noted on an osteopathic structural exam other than those noted in the History and Physical/Consult. Vitals: Vital Signs Temp Pulse Pulse Resp BP BP Pulse Ox 07/27/16 13:00 106 H 28 H 95/49 95 07/27/16 12:28 88 07/27/16 12:09 89 07/27/16 12:00 89 22 77/40 95 07/27/16 11:00 98.2 F 90 31 H 77/60 95 07/27/16 10:00 88 28 H 95/55 94 L 07/27/16 09:02 87 07/27/16 09:00 85 27 H 87/51 98 07/27/16 08:50 94 L 07/27/16 08:49 85 07/27/16 08:00 97.9 F 86 27 H 98/53 94 L 07/27/16 07:00 91 25 H 103/49 93 L 07/27/16 06:00 82 24 112/60 94 L 07/27/16 05:00 78 20 98/57 92 L 07/27/16 04:00 97.3 F L 87 24 129/63 92 L 07/27/16 03:00 81 23 91/49 93 L 07/27/16 02:00 81 22 101/60 93 L 07/27/16 01:00 79 23 100/51 92 L 07/27/16 00:00 97.8 F 82 24 108/51 93 L 07/26/16 23:00 84 23 108/57 92 L 07/26/16 22:00 81 18 109/57 93 L 07/26/16 21:00 83 20 110/53 92 L 07/26/16 20:00 98.4 F 82 18 99/57 93 L 07/26/16 19:00 82 29 H 93/52 94 L 07/26/16 18:30 89 28 H 93/52 94 L 07/26/16 18:00 98.6 F 87 103/55 94 L 07/26/16 17:56 98.6 F 87 19 103/55 94 L 07/26/16 17:40 87 07/26/16 17:08 97.9 F 87 18 116/59 96 Intake and Output 07/26/16 07/27/16 07/27/16 22:59 06:59 14:59 Intake Total 500 2700 900.0 Output Total 45 147 180 Balance 455 2553 720.0 Intake: IV 500 700 600 Sodium Chloride 0.9% 1, 500 700 600 000 ml @ 100 mls/hr IV . Q10H [facility] Rx#:[id number] Intake, IV Titration 2000 240.0 Amount Magnesium Sulfate-D5w Pmx 100 1 gm In Dextrose/Water 1 100ml.bag @ 100 mls/hr IVPB Q1H [facility] Rx#: [id number] Norepinephrine 4 mg In 15.0 Sodium Chloride 0.9% 250 ml @ Titrate IV .Q0M [facility] Rx#:[id number] Piperacillin-Tazobactam 3 25.0 .375 gm In Dextrose/Water 1 50ml.bag @ 12.5 mls/hr IVPB Q12HR [facility] Rx#: [id number] Potassium Chloride 10 meq 100 Lidocaine 2% Inj 10 mg In Sodium Chloride 0.9% 100 ml @ 100 mls/hr IV Q1HR [facility] Rx#:[id number] Sodium Chloride 0.9% 1, 1000 000 ml @ 999 mls/hr IV . Q1H1M [facility] Rx#:[id number] Sodium Chloride 0.9% 1, 1000 000 ml @ 999 mls/hr IV . Q1H1M [facility] Rx#:[id number] Oral 60 Output: Urine 45 147 180 Other: Voiding Method Indwelling Catheter Indwelling Catheter Indwelling Catheter # Bowel Movements 2 3 Weight 94.9 kg 96.2 kg 96.2 kg Patient Weight 07/28/16 06:59 Weight 96.2 kg Gen.: Patient opens his eyes to verbal stimuli, he will answer questions but is slow to respond Cardiovascular: Regular rate and rhythm, S1/S2, tachycardia Lungs: Diminished breath sounds at the bilateral bases Abdomen: Soft nontender nondistended positive bowel sounds Extremities: No edema Results - Laboratory Findings CBC and BMP: 07/27/16 03:33 07/27/16 03:33 PT/INR, D-dimer PT 36.5 sec (9.0-12.0) H 07/27/16 03:33 INR 3.7 (<1.1) 07/27/16 03:33 Abnormal lab findings: Abnormal Labs 07/26/16 07/26/16 07/26/16 16:55 17:41 20:08 WBC Plt Count Neutrophils # Lymphocytes # Monocytes # PT 36.4 H APTT 33.4 H Sodium Chloride Carbon Dioxide BUN Creatinine Glucose POC Glucose (mg/dL) 182 H Hemoglobin A1c Calcium ALT Total Creatine Kinase Troponin I Total Protein Albumin Urine WBC >182 H Urine WBC Clumps Many H Urine Bacteria Rare H 07/26/16 07/27/16 07/27/16 20:08 00:03 03:33 WBC Plt Count Neutrophils # Lymphocytes # Monocytes # PT APTT Sodium Chloride Carbon Dioxide BUN Creatinine Glucose POC Glucose (mg/dL) 135 H Hemoglobin A1c Calcium ALT Total Creatine Kinase 45 L 40 L Troponin I 0.142 H* 0.123 H* Total Protein Albumin Urine WBC Urine WBC Clumps Urine Bacteria 07/27/16 07/27/16 07/27/16 03:33 03:33 03:33 WBC 22.1 H Plt Count 139 L Neutrophils # 19.1 H Lymphocytes # 0.9 L Monocytes # 1.8 H PT 36.5 H APTT 32.8 H Sodium 147 H Chloride 115 H Carbon Dioxide 17 L BUN 62 H Creatinine 3.40 H Glucose 150 H POC Glucose (mg/dL) Hemoglobin A1c Calcium 7.6 L ALT 17 L Total Creatine Kinase Troponin I Total Protein 5.3 L Albumin 2.4 L Urine WBC Urine WBC Clumps Urine Bacteria 07/27/16 07/27/16 07/27/16 03:33 06:14 12:08 WBC Plt Count Neutrophils # Lymphocytes # Monocytes # PT APTT Sodium Chloride Carbon Dioxide BUN Creatinine Glucose POC Glucose (mg/dL) 124 H 140 H Hemoglobin A1c 6.6 H Calcium ALT Total Creatine Kinase Troponin I Total Protein Albumin Urine WBC Urine WBC Clumps Urine Bacteria - Diagnostic Findings Chest x-ray: report reviewed, image reviewed Assessment and Plan Plan: Septic shock Urinary tract infection, recent Pseudomonas infection Acute kidney injury Mild anion gap metabolic acidosis Lactic acidosis Mild thrombocytosis Coagulopathy of unknown significance Leukocytosis Severe abdominal pain, history of abdominal aortic aneurysm Diarrhea History of coronary artery disease History of hypertension History of Parkinson's Diabetes mellitus type 2 O2 to maintain saturation greater than or equal to 88% Levophed to maintain map greater than 65 Antibiotics: Zosyn, will add Flagyl for now DVT prophylaxis with SCDs due to elevated INR GI prophylaxis with Protonix Continue IV fluids, change to 0.45 due to rising Na/Cl Infectious disease, nephrology consult CT of the abdomen and pelvis is pending Stool for C. diff Bronchodilators Monitor urine output Monitor labs Thank you for this consultation. We will continue to follow along.
[2016-07-27] MEDS: SODIUM CHLORIDE 0.45% 1,000 ML IV SCH (15:23)
[2016-07-27] MEDS ORDERED: metroNIDAZOLE 500 MG TAB PO SCH (16:00)
[2016-07-27] MEDS: metroNIDAZOLE-NS PMX 500 MG in SALINE 1 100ML.BAG IVPB SCH (17:06)
[2016-07-27 17:49] LABS: Glucose,Whole Blood 184 mg/dL (75-99)
[2016-07-27] MEDS ORDERED: LEVOFLOXACIN 500MG-D5W PMX 500 MG in DEXTROSE/WATER 1 100ML.BAG IVPB SCH (18:00)
[2016-07-27 18:25] LABS: Calcium 7.1 mg/dL (8.4-10.2); Magnesium 2.5 mg/dL (1.6-2.3); Phosphorous 4.9 mg/dL (2.5-4.5); Potassium 4.3 mmol/L (3.5-5.1); Total Protein 5.2 g/dL (6.3-8.2)
--- NOTE | 2016-07-27 18:38 | P.GSCN ---
History of Present Illness Consult date: 07/27/16 Reason for Consult: Acute cholecystitis History of present illness: Patient came to the hospital with his family because of altered mental status. The patient had a recent admission for urinary tract infection. His urine was noted to be cloudy and he was hypotensive. He has been having diarrhea as well. He is confused. He denies abdominal pain however. A CAT scan was performed which shows a distended gallbladder and some inflammatory changes around the fundus of the gallbladder in the region of the hepatic flexure. There are other areas of the colon also appears suspiciously thickened. His C. diff was normal. His white blood cell count is elevated. His INR is 3.7 despite no anticoagulation. Liver enzymes are normal. Platelet level is normal. No history of liver dysfunction. He is a no code. According to the he has no history of similar events in the past. Currently on pressors. Review of Systems ROS unobtainable: due to mental status Past Medical History Past Medical History: Coronary Artery Disease (CAD), COPD, Diabetes Mellitus, GERD/Reflux, Hyperlipidemia, Hypertension, Memory Impairment, Myocardial Infarction ([place]), Neurologic Disorder (Parkinson), Osteoarthritis (OA), Prostate Disorder, Renal Disease Additional Past Medical History / Comment(s): BASAL CANCER EARLOBES. Last Myocardial Infarction Date:: 2001 History of Any Multi-Drug Resistant Organisms: None Reported Past Surgical History: Appendectomy, Heart Catheterization With Stent, Orthopedic Surgery Additional Past Surgical History / Comment(s): VON CATARACT REMOVAL, LEFT TKA Past Anesthesia/Blood Transfusion Reactions: No Reported Reaction Date of Last Stent Placement:: 2001 Past Psychological History: No Psychological Hx Reported Smoking Status: Former smoker Past Alcohol Use History: None Reported Past Drug Use History: None Reported - Past Family History Brother(s) Family Medical History: Diabetes Mellitus Father Family Medical History: Unable to Obtain Mother Family Medical History: Unable to Obtain Son(s) Family Medical History: No Reported History Medications and Allergies Home Medications Medication Instructions Recorded Confirmed Type Insuln Asp Prt/Insulin Aspart 30 units SQ HS 05/29/14 07/26/16 History [NovoLOG MIX 70-30 VIAL] Insuln Asp Prt/Insulin Aspart 35 units SQ QAM 05/29/14 07/26/16 History [NovoLOG MIX 70-30 VIAL] Lovastatin 40 mg PO HS@2100 05/29/14 07/26/16 History hydrALAZINE HCL [Apresoline] 25 mg PO BID 07/05/16 07/26/16 History Carbidopa-Levodopa 25-100 mg 1 tab PO BID 07/26/16 07/26/16 History [Sinemet 25-100 mg] Cholecalciferol [Vitamin D3] 1,000 unit PO HS 07/26/16 07/26/16 History Cyanocobalamin [Vitamin B-12] 500 mcg PO DAILY 07/26/16 07/26/16 History Midodrine HCl [ProAmatine] 10 mg PO TID 07/26/16 07/26/16 History Omeprazole 20 mg PO DAILY 07/26/16 07/26/16 History Allergies Allergy/AdvReac Type Severity Reaction Status Date / Time dipyridamole Allergy Confusion Verified 07/26/16 14:41 [From Persantine] Surgical - Exam Vital Signs Temp Pulse Resp BP Pulse Ox 99.1 F 99 18 108/58 93 L 07/26/16 14:31 07/26/16 14:31 07/26/16 14:31 07/26/16 14:31 07/26/16 14:31 Physical exam: General: Elderly white male confused in no distress HEENT: Normocephalic, sclerae nonicteric Abdomen: Mild diffuse tenderness possibly increased in the right subcostal location Extremities: 1+ pedal edema Neuro: Confused Results - Labs 07/27/16 03:33 07/27/16 17:59 Abnormal Lab Results - Last 24 Hours (Table) 07/26/16 07/26/16 07/27/16 Range/Units 20:08 20:08 00:03 WBC (3.8-10.6) k/uL Plt Count (150-450) k/uL Neutrophils # (1.3-7.7) k/uL Lymphocytes # (1.0-4.8) k/uL Monocytes # (0-1.0) k/uL PT 36.4 H (9.0-12.0) sec APTT 33.4 H (22.0-30.0) sec Sodium (137-145) mmol/L Chloride (98-107) mmol/L Carbon Dioxide (22-30) mmol/L BUN (9-20) mg/dL Creatinine (0.66-1.25) mg/dL Glucose (74-99) mg/dL POC Glucose (mg/dL) 135 H (75-99) mg/dL Hemoglobin A1c (4.2-6.1) % Calcium (8.4-10.2) mg/dL Phosphorus (2.5-4.5) mg/dL Magnesium (1.6-2.3) mg/dL ALT (21-72) U/L Total Creatine Kinase 45 L (55-170) U/L Troponin I 0.142 H* (0.000-0.034) ng/mL Total Protein (6.3-8.2) g/dL Albumin (3.5-5.0) g/dL 07/27/16 07/27/16 07/27/16 Range/Units 03:33 03:33 03:33 WBC 22.1 H (3.8-10.6) k/uL Plt Count 139 L (150-450) k/uL Neutrophils # 19.1 H (1.3-7.7) k/uL Lymphocytes # 0.9 L (1.0-4.8) k/uL Monocytes # 1.8 H (0-1.0) k/uL PT 36.5 H (9.0-12.0) sec APTT 32.8 H (22.0-30.0) sec Sodium (137-145) mmol/L Chloride (98-107) mmol/L Carbon Dioxide (22-30) mmol/L BUN (9-20) mg/dL Creatinine (0.66-1.25) mg/dL Glucose (74-99) mg/dL POC Glucose (mg/dL) (75-99) mg/dL Hemoglobin A1c (4.2-6.1) % Calcium (8.4-10.2) mg/dL Phosphorus (2.5-4.5) mg/dL Magnesium (1.6-2.3) mg/dL ALT (21-72) U/L Total Creatine Kinase 40 L (55-170) U/L Troponin I 0.123 H* (0.000-0.034) ng/mL Total Protein (6.3-8.2) g/dL Albumin (3.5-5.0) g/dL 07/27/16 07/27/16 07/27/16 Range/Units 03:33 03:33 06:14 WBC (3.8-10.6) k/uL Plt Count (150-450) k/uL Neutrophils # (1.3-7.7) k/uL Lymphocytes # (1.0-4.8) k/uL Monocytes # (0-1.0) k/uL PT (9.0-12.0) sec APTT (22.0-30.0) sec Sodium 147 H (137-145) mmol/L Chloride 115 H (98-107) mmol/L Carbon Dioxide 17 L (22-30) mmol/L BUN 62 H (9-20) mg/dL Creatinine 3.40 H (0.66-1.25) mg/dL Glucose 150 H (74-99) mg/dL POC Glucose (mg/dL) 124 H (75-99) mg/dL Hemoglobin A1c 6.6 H (4.2-6.1) % Calcium 7.6 L (8.4-10.2) mg/dL Phosphorus (2.5-4.5) mg/dL Magnesium (1.6-2.3) mg/dL ALT 17 L (21-72) U/L Total Creatine Kinase (55-170) U/L Troponin I (0.000-0.034) ng/mL Total Protein 5.3 L (6.3-8.2) g/dL Albumin 2.4 L (3.5-5.0) g/dL 07/27/16 07/27/16 07/27/16 Range/Units 12:08 17:45 17:59 WBC (3.8-10.6) k/uL Plt Count (150-450) k/uL Neutrophils # (1.3-7.7) k/uL Lymphocytes # (1.0-4.8) k/uL Monocytes # (0-1.0) k/uL PT (9.0-12.0) sec APTT (22.0-30.0) sec Sodium 146 H (137-145) mmol/L Chloride 116 H (98-107) mmol/L Carbon Dioxide 15 L (22-30) mmol/L BUN 67 H (9-20) mg/dL Creatinine 3.42 H (0.66-1.25) mg/dL Glucose 214 H (74-99) mg/dL POC Glucose (mg/dL) 140 H 184 H (75-99) mg/dL Hemoglobin A1c (4.2-6.1) % Calcium 7.1 L (8.4-10.2) mg/dL Phosphorus 4.9 H (2.5-4.5) mg/dL Magnesium 2.5 H (1.6-2.3) mg/dL ALT 19 L (21-72) U/L Total Creatine Kinase (55-170) U/L Troponin I (0.000-0.034) ng/mL Total Protein 5.2 L (6.3-8.2) g/dL Albumin 2.3 L (3.5-5.0) g/dL Diabetes panel 07/27/16 07/27/16 07/27/16 Range/Units 03:33 03:33 17:59 Sodium 147 H 146 H (137-145) mmol/L Potassium 3.9 4.3 (3.5-5.1) mmol/L Chloride 115 H 116 H (98-107) mmol/L Carbon Dioxide 17 L 15 L (22-30) mmol/L BUN 62 H 67 H (9-20) mg/dL Creatinine 3.40 H 3.42 H (0.66-1.25) mg/dL Glucose 150 H 214 H (74-99) mg/dL Hemoglobin A1c 6.6 H (4.2-6.1) % Calcium 7.6 L 7.1 L (8.4-10.2) mg/dL AST 21 28 (17-59) U/L ALT 17 L 19 L (21-72) U/L Alkaline Phosphatase 69 62 (38-126) U/L Total Protein 5.3 L 5.2 L (6.3-8.2) g/dL Albumin 2.4 L 2.3 L (3.5-5.0) g/dL Calcium panel 07/27/16 07/27/16 Range/Units 03:33 17:59 Calcium 7.6 L 7.1 L (8.4-10.2) mg/dL Phosphorus 4.5 4.9 H (2.5-4.5) mg/dL Albumin 2.4 L 2.3 L (3.5-5.0) g/dL Pituitary panel 07/27/16 07/27/16 Range/Units 03:33 17:59 Sodium 147 H 146 H (137-145) mmol/L Potassium 3.9 4.3 (3.5-5.1) mmol/L Chloride 115 H 116 H (98-107) mmol/L Carbon Dioxide 17 L 15 L (22-30) mmol/L BUN 62 H 67 H (9-20) mg/dL Creatinine 3.40 H 3.42 H (0.66-1.25) mg/dL Glucose 150 H 214 H (74-99) mg/dL Calcium 7.6 L 7.1 L (8.4-10.2) mg/dL Adrenal panel 07/27/16 07/27/16 Range/Units 03:33 17:59 Sodium 147 H 146 H (137-145) mmol/L Potassium 3.9 4.3 (3.5-5.1) mmol/L Chloride 115 H 116 H (98-107) mmol/L Carbon Dioxide 17 L 15 L (22-30) mmol/L BUN 62 H 67 H (9-20) mg/dL Creatinine 3.40 H 3.42 H (0.66-1.25) mg/dL Glucose 150 H 214 H (74-99) mg/dL Calcium 7.6 L 7.1 L (8.4-10.2) mg/dL Total Bilirubin 1.1 1.0 (0.2-1.3) mg/dL AST 21 28 (17-59) U/L ALT 17 L 19 L (21-72) U/L Alkaline Phosphatase 69 62 (38-126) U/L Total Protein 5.3 L 5.2 L (6.3-8.2) g/dL Albumin 2.4 L 2.3 L (3.5-5.0) g/dL Assessment and Plan (1) Acute cholecystitis Narrative/Plan: Agree based on the physical exam findings and the CAT scan acute cholecystitis is very likely the source of sepsis. The patient is not a surgical candidate and the patient's does not want to see him undergo surgery. We discussed the options of a percutaneous drain however the patient's INR remains elevated. We decided to continue with aggressive medical resuscitation. Continue IV antibiotics and bowel rest. HIDA scan would be potentially some help to evaluate the patency of the cystic duct. He is not a candidate for a nuclear medicine study at this time however. We'll continue to follow with you closely. Status: Acute
[2016-07-28 00:15] LABS: Glucose,Whole Blood 199 mg/dL (75-99)
[2016-07-28] MEDS: INSULIN LISPRO (humaLOG) 300 UNIT/3 ML VIAL SQ SCH ×4 (00:35→18:59)
[2016-07-28] MEDS: metroNIDAZOLE-NS PMX 500 MG in SALINE 1 100ML.BAG IVPB SCH ×3 (00:35→16:54)
[2016-07-28] MEDS: SODIUM CHLORIDE 0.45% 1,000 ML IV SCH ×4 (04:18→21:10)
[2016-07-28 04:51] LABS: Basophils % (A) 0 %; CH 29.7; CHCM 31.6; Eosinophils % (A) 0 %; HCT 44.8 % (39.0-53.0); HDW 2.77; HGB 13.9 gm/dL (13.0-17.5); Hypochromasia Slight; Luc # (Auto) 0.41; Luc % (Auto) 2; Lymphocytes # (A) 0.5 k/uL (1.0-4.8); Lymphocytes % (A) 3 %; MCH 29.3 pg (25.0-35.0); MCV 94.6 fL (80.0-100.0); Monocytes # (A) 1.4 k/uL (0-1.0); Monocytes % (A) 8 %; Neutrophils # (A) 15.9 k/uL (1.3-7.7); Neutrophils % (A) 87 %; RBC 4.74 m/uL (4.30-5.90); WBC 18.3 k/uL (3.8-10.6); WBC (Perox) 18.41
[2016-07-28] MEDS: NOREPINEPHRINE 4 MG in SODIUM CHLORIDE 0.9% 250 ML IV SCH (05:19)
[2016-07-28 05:23] LABS: Partial Thromboplastin Time 43.8 sec (22.0-30.0); Prothrombin Time 57.4 sec (9.0-12.0)
[2016-07-28 05:25] LABS: Calcium 7.4 mg/dL (8.4-10.2); Magnesium 2.5 mg/dL (1.6-2.3); Phosphorous 4.1 mg/dL (2.5-4.5); Potassium 3.4 mmol/L (3.5-5.1); Total Bilirubin 0.8 mg/dL (0.2-1.3); Total Protein 4.8 g/dL (6.3-8.2)
[2016-07-28 05:42] LABS: INR 5.7 (<1.1)
[2016-07-28 06:01] LABS: Glucose,Whole Blood 151 mg/dL (75-99)
[2016-07-28] MEDS: METOPROLOL TARTRATE 5 MG/5 ML VIAL IVP SCH ×3 (06:07→19:29)
[2016-07-28] MEDS ORDERED: PHYTONADIONE 5 MG in SODIUM CHLORIDE 0.9% 50 ML IVPB STA (07:16)
--- NOTE | 2016-07-28 08:08 | P.PN ---
Subjective This is a 85-year-old male seen in consultation because of acute kidney injury. His creatinine went up from a baseline of 1.2 on 07/10/2016 to -3.9 on admission. He came in with history of syncope and was thought to have had a stroke. But at the time of this exam a few hours later he is able to move all his extremities and follows commands. He is oriented 3. He was given 5 L of fluid in the emergency room and over the last 24 hours his started to make urine. He remains somewhat obtunded arousable follows commands and answers questions with monosyllables. He has diarrhea with dark liquid stool with a rectal tube. Continues to have abdominal discomfort especially on the left flank area. A computed tomography scan of the abdomen done yesterday shows dilated bile duct and gallstones. Additionally there seems to be colitis with thickened colonic wall, bilateral lower lobe infiltrates, 8 mm left upper lobe nodule. 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 Additionally bladder wall is thickened, a 4.5 cm abdominal aortic aneurysm with the stent is noted prostate is enlarged. His past history significant for UTI recently with Pseudomonas on 07/05/2016 3 weeks ago. A computed tomography scan showed a 5 cm aneurysm in 2013. There is a left ureteral stent in 2014 CT. This is no been followed up to the best of my knowledge based on EMR. . His past history significant for coronary artery disease diabetes mellitus COPD prostatism history of acute [place] heart catheterization with stent and as mentioned above left ureteral stent seen on computed tomography scan in 2013. Objective - Vital Signs Vital signs: Vital Signs Temp 98.9 F 07/28/16 04:00 Pulse 89 07/28/16 07:00 Resp 26 H 07/28/16 07:00 BP 101/54 07/28/16 07:00 Pulse Ox 95 07/28/16 07:00 Intake & Output 07/27/16 07/28/16 07/28/16 18:59 06:59 18:59 Intake Total 1650.0 1223.099 Output Total 1525 484 Balance 125.0 739.099 Weight 96.2 kg Intake: IV 800 Sodium Chloride 0.9% 1, 800 000 ml @ 100 mls/hr IV . Q10H [facility] Rx#:[id number] Intake, IV Titration 790.0 1223.099 Amount Magnesium Sulfate-D5w Pmx 200 1 gm In Dextrose/Water 1 100ml.bag @ 100 mls/hr IVPB Q1H [facility] Rx#: [id number] Norepinephrine 4 mg In 52.5 160.599 Sodium Chloride 0.9% 250 ml @ Titrate IV .Q0M [facility] Rx#:[id number] Piperacillin-Tazobactam 3 37.5 62.5 .375 gm In Dextrose/Water 1 50ml.bag @ 12.5 mls/hr IVPB Q12HR [facility] Rx#: [id number] Potassium Chloride 10 meq 100 Lidocaine 2% Inj 10 mg In Sodium Chloride 0.9% 100 ml @ 100 mls/hr IV Q1HR [facility] Rx#:[id number] Sodium Chloride 0.45% 1, 300 900 000 ml @ 100 mls/hr IV . Q10H [facility] Rx#:[id number] metroNIDAZOLE-NS PMX 500 100 100 mg In Saline 1 100ml.bag @ 100 mls/hr IVPB Q8HR [facility] Rx#:[id number] Oral 60 Output: Urine 325 384 Stool 1200 100 Other: Voiding Method Indwelling Catheter Indwelling Catheter # Bowel Movements 3 On examination is sleepy but arousable and follows commands. A chin exam no JVP neck is supple no facial asymmetry pupils are equal Lungs are clear to auscultation and percussion good air entry bilaterally Heart sounds are unremarkable no murmur rub gallop monitor shows normal sinus rhythm Abdomen is slightly tender especially on the left side. examination reveals trace edema Neurologically sleepy but arousable and able to move all his extremities - Labs CBC & Chem 7: 07/28/16 04:11 07/28/16 04:11 Labs: Abnormal Lab Results - Last 24 Hours (Table) 07/27/16 07/27/16 07/27/16 Range/Units 03:33 12:08 17:45 WBC (3.8-10.6) k/uL Neutrophils # (1.3-7.7) k/uL Lymphocytes # (1.0-4.8) k/uL Monocytes # (0-1.0) k/uL PT (9.0-12.0) sec INR (<1.1) APTT (22.0-30.0) sec Sodium (137-145) mmol/L Potassium (3.5-5.1) mmol/L Chloride (98-107) mmol/L Carbon Dioxide (22-30) mmol/L BUN (9-20) mg/dL Creatinine (0.66-1.25) mg/dL Glucose (74-99) mg/dL POC Glucose (mg/dL) 140 H 184 H (75-99) mg/dL Hemoglobin A1c 6.6 H (4.2-6.1) % Calcium (8.4-10.2) mg/dL Phosphorus (2.5-4.5) mg/dL Magnesium (1.6-2.3) mg/dL ALT (21-72) U/L Total Protein (6.3-8.2) g/dL Albumin (3.5-5.0) g/dL 07/27/16 07/28/16 07/28/16 Range/Units 17:59 00:14 04:11 WBC 18.3 H (3.8-10.6) k/uL Neutrophils # 15.9 H (1.3-7.7) k/uL Lymphocytes # 0.5 L (1.0-4.8) k/uL Monocytes # 1.4 H (0-1.0) k/uL PT (9.0-12.0) sec INR (<1.1) APTT (22.0-30.0) sec Sodium 146 H (137-145) mmol/L Potassium (3.5-5.1) mmol/L Chloride 116 H (98-107) mmol/L Carbon Dioxide 15 L (22-30) mmol/L BUN 67 H (9-20) mg/dL Creatinine 3.42 H (0.66-1.25) mg/dL Glucose 214 H (74-99) mg/dL POC Glucose (mg/dL) 199 H (75-99) mg/dL Hemoglobin A1c (4.2-6.1) % Calcium 7.1 L (8.4-10.2) mg/dL Phosphorus 4.9 H (2.5-4.5) mg/dL Magnesium 2.5 H (1.6-2.3) mg/dL ALT 19 L (21-72) U/L Total Protein 5.2 L (6.3-8.2) g/dL Albumin 2.3 L (3.5-5.0) g/dL 07/28/16 07/28/16 07/28/16 Range/Units 04:11 04:11 06:00 WBC (3.8-10.6) k/uL Neutrophils # (1.3-7.7) k/uL Lymphocytes # (1.0-4.8) k/uL Monocytes # (0-1.0) k/uL PT 57.4 H (9.0-12.0) sec INR 5.7 H* (<1.1) APTT 43.8 H (22.0-30.0) sec Sodium 148 H (137-145) mmol/L Potassium 3.4 L (3.5-5.1) mmol/L Chloride 118 H (98-107) mmol/L Carbon Dioxide 16 L (22-30) mmol/L BUN 70 H (9-20) mg/dL Creatinine 3.30 H (0.66-1.25) mg/dL Glucose 177 H (74-99) mg/dL POC Glucose (mg/dL) 151 H (75-99) mg/dL Hemoglobin A1c (4.2-6.1) % Calcium 7.4 L (8.4-10.2) mg/dL Phosphorus (2.5-4.5) mg/dL Magnesium 2.5 H (1.6-2.3) mg/dL ALT 17 L (21-72) U/L Total Protein 4.8 L (6.3-8.2) g/dL Albumin 2.2 L (3.5-5.0) g/dL Microbiology - Last 24 Hours (Table) 07/26/16 19:30 Blood Culture - Preliminary Blood No Growth after 24 hours Assessment and Plan Plan: Impression. 1. Acute kidney injury with creatinine peaking at 3.9, urine output is improved significantly creatinine is down to 3.3. Etiology is ATN and prerenal from hypotension. 2. Gram-negative UTI. He had Pseudomonas UTI dated 07/05/20 16. Previous computed tomography scan 2013 showed a left ureteral stent. None is seen on the computed tomography scan done yesterday to 07/27/2016 3. Mild CK D with a creatinine of 1.2 dated 07/10/2016. 4. Abdominal aortic aneurysm 5 cm based on computed tomography scan 2013, computed tomography scan done 07/27/2016 yesterday shows a 4.5 cm abdominal aortic aneurysm with the stent 5.A computed tomography scan of the abdomen done yesterday 07/27/2016 shows dilated bile duct and gallstones. 6. CT shows colitis with thickened colonic wall, 7. Computed tomography scan shows bilateral lower lobe infiltrates, 8 mm left upper lobe nodule. 8. 3.9 cm hyperdense lesion in the left kidney likely cysts, 9. 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 10. Additionally bladder wall is thickened, 11. Computed tomography scan showed prostate is enlarged. 12. Mild gap acidosis with bicarb of 16 stable, anion gap of an anion gap of 14. Etiology is diarrhea and acute kidney injury. 13. Lactic acidosis lactic acid is 4. 14. Hypotension likely from sepsis troponin is 0.13. 15. Hypokalemia scan to GI losses with diarrhea 16. Mild hyponatremia sodium is 148 secondary to GI losses and decreased free water intake. Also some osmotic diuresis from high blood sugar is inducing free water loss Recommendation. Change IV fluids to half-normal saline but continue Continue IV fluids 100 mL / hour. Blood sugar is slightly high that might been using some osmotic diuresis and loss of free water 40 mg of potassium to be given. Consider ischemic colitis.
--- NOTE | 2016-07-28 08:10 | XR ---
EXAMINATION TYPE: XR chest 1V DATE OF EXAM: 07/28/2016 6:33 AM COMPARISON: 07/27/2016 and 07/08/2014 HISTORY: 85 year-old male shortness of breath TECHNIQUE: Single frontal view of the chest is obtained. FINDINGS: Left heart margin obscured by adjacent pleural parenchymal disease. Mild interstitial prominence. A 1 .4 cm left basilar pulmonary nodule is unchanged from 2014 suggesting a benign etiology. Continued sm all left pleural effusion with adjacent opacity. IMPRESSION: Continued small left pleural effusion with adjacent atelectasis and/or consolidation. Given interstit ial prominence, correlate for possible CHF as an etiology. A 1.4 cm left basilar pulmonary nodule is unchanged from 2014 suggesting a benign process.
[2016-07-28] MEDS: IPRATROPIUM-ALBUTEROL 3 ML NEB INHALATION SCH ×4 (08:20→19:13)
[2016-07-28] MEDS: PANTOPRAZOLE 40 MG/10 ML VIAL IV SCH (08:49)
[2016-07-28] MEDS: CYANOCOBALAMIN 500 MCG TAB PO SCH (09:24)
[2016-07-28] MEDS: CARBIDOPA-LEVODOPA 25-100 MG 1 EACH TAB PO SCH ×2 (09:24→21:11)
[2016-07-28] MEDS: PIPERACILLIN-TAZOBACTAM 3.375 GM in DEXTROSE/WATER 1 50ML.BAG IVPB SCH ×2 (09:25→21:10)
[2016-07-28 09:29] LABS: Glucose,Whole Blood 178 mg/dL (75-99)
[2016-07-28] MEDS ORDERED: POTASSIUM CHLORIDE 20 MEQ, LIDOCAINE 2% INJ 20 MG in SODIUM CHLORIDE 0.9% 100 ML IVPB ONE (10:11)
[2016-07-28] MEDS: INSULN ASP PRT/INSULIN ASPART 100 UNIT/ML 10 ML VIAL SQ SCH ×3 (10:31→21:09)
--- NOTE | 2016-07-28 11:46 | P.PN ---
Subjective Principal diagnosis: Sepsis Patient seen and examined in the ICU with nursing staff at bedside. Patient is more alert today. He is having some urine output, about 45 mL an hour now. He is on 1 g of Levophed. He is complaining of diffuse abdominal pain. He continues to have diarrhea. Objective - Vital Signs Vital signs: Vital Signs Temp 99.4 F 07/28/16 08:00 Pulse 103 H 07/28/16 10:00 Resp 26 H 07/28/16 10:00 BP 96/50 07/28/16 10:00 Pulse Ox 94 L 07/28/16 10:00 Intake & Output 07/27/16 07/28/16 07/28/16 18:59 06:59 18:59 Intake Total 1650.0 1223.099 592.1 Output Total 1525 484 150 Balance 125.0 739.099 442.1 Weight 96.2 kg Intake: IV 800 Sodium Chloride 0.9% 1, 800 000 ml @ 100 mls/hr IV . Q10H LV Rx#:[id number] Intake, IV Titration 790.0 1223.099 592.1 Amount Magnesium Sulfate-D5w Pmx 200 1 gm In Dextrose/Water 1 100ml.bag @ 100 mls/hr IVPB Q1H LV Rx#: [id number] Norepinephrine 4 mg In 52.5 160.599 42.1 Sodium Chloride 0.9% 250 ml @ Titrate IV .Q0M LV Rx#:[id number] Phytonadione 5 mg In 50 Sodium Chloride 0.9% 50 ml @ 100 mls/hr IVPB ONCE STA Rx#:[id number] Piperacillin-Tazobactam 3 37.5 62.5 50 .375 gm In Dextrose/Water 1 50ml.bag @ 12.5 mls/hr IVPB Q12HR LV Rx#: [id number] Potassium Chloride 10 meq 100 Lidocaine 2% Inj 10 mg In Sodium Chloride 0.9% 100 ml @ 100 mls/hr IV Q1HR LV Rx#:[id number] Sodium Chloride 0.45% 1, 300 900 350 000 ml @ 100 mls/hr IV . Q10H LV Rx#:[id number] metroNIDAZOLE-NS PMX 500 100 100 100 mg In Saline 1 100ml.bag @ 100 mls/hr IVPB Q8HR LV Rx#:[id number] Oral 60 Output: Urine 325 384 150 Stool 1200 100 Other: Voiding Method Indwelling Catheter Indwelling Catheter # Bowel Movements 3 - Exam Gen.: Patient opens his eyes to verbal stimuli, he will answer questions but is slow to respond Cardiovascular: Regular rate and rhythm, S1/S2, tachycardia Lungs: Diminished breath sounds at the bilateral bases Abdomen: Soft nontender nondistended positive bowel sounds Extremities: No edema - Labs CBC & Chem 7: 07/28/16 04:11 07/28/16 04:11 Labs: Abnormal Lab Results - Last 24 Hours (Table) 07/27/16 07/27/16 07/27/16 Range/Units 03:33 12:08 17:45 WBC (3.8-10.6) k/uL Neutrophils # (1.3-7.7) k/uL Lymphocytes # (1.0-4.8) k/uL Monocytes # (0-1.0) k/uL PT (9.0-12.0) sec INR (<1.1) APTT (22.0-30.0) sec Sodium (137-145) mmol/L Potassium (3.5-5.1) mmol/L Chloride (98-107) mmol/L Carbon Dioxide (22-30) mmol/L BUN (9-20) mg/dL Creatinine (0.66-1.25) mg/dL Glucose (74-99) mg/dL POC Glucose (mg/dL) 140 H 184 H (75-99) mg/dL Hemoglobin A1c 6.6 H (4.2-6.1) % Calcium (8.4-10.2) mg/dL Phosphorus (2.5-4.5) mg/dL Magnesium (1.6-2.3) mg/dL ALT (21-72) U/L Total Protein (6.3-8.2) g/dL Albumin (3.5-5.0) g/dL 07/27/16 07/28/16 07/28/16 Range/Units 17:59 00:14 04:11 WBC 18.3 H (3.8-10.6) k/uL Neutrophils # 15.9 H (1.3-7.7) k/uL Lymphocytes # 0.5 L (1.0-4.8) k/uL Monocytes # 1.4 H (0-1.0) k/uL PT (9.0-12.0) sec INR (<1.1) APTT (22.0-30.0) sec Sodium 146 H (137-145) mmol/L Potassium (3.5-5.1) mmol/L Chloride 116 H (98-107) mmol/L Carbon Dioxide 15 L (22-30) mmol/L BUN 67 H (9-20) mg/dL Creatinine 3.42 H (0.66-1.25) mg/dL Glucose 214 H (74-99) mg/dL POC Glucose (mg/dL) 199 H (75-99) mg/dL Hemoglobin A1c (4.2-6.1) % Calcium 7.1 L (8.4-10.2) mg/dL Phosphorus 4.9 H (2.5-4.5) mg/dL Magnesium 2.5 H (1.6-2.3) mg/dL ALT 19 L (21-72) U/L Total Protein 5.2 L (6.3-8.2) g/dL Albumin 2.3 L (3.5-5.0) g/dL 07/28/16 07/28/16 07/28/16 Range/Units 04:11 04:11 06:00 WBC (3.8-10.6) k/uL Neutrophils # (1.3-7.7) k/uL Lymphocytes # (1.0-4.8) k/uL Monocytes # (0-1.0) k/uL PT 57.4 H (9.0-12.0) sec INR 5.7 H* (<1.1) APTT 43.8 H (22.0-30.0) sec Sodium 148 H (137-145) mmol/L Potassium 3.4 L (3.5-5.1) mmol/L Chloride 118 H (98-107) mmol/L Carbon Dioxide 16 L (22-30) mmol/L BUN 70 H (9-20) mg/dL Creatinine 3.30 H (0.66-1.25) mg/dL Glucose 177 H (74-99) mg/dL POC Glucose (mg/dL) 151 H (75-99) mg/dL Hemoglobin A1c (4.2-6.1) % Calcium 7.4 L (8.4-10.2) mg/dL Phosphorus (2.5-4.5) mg/dL Magnesium 2.5 H (1.6-2.3) mg/dL ALT 17 L (21-72) U/L Total Protein 4.8 L (6.3-8.2) g/dL Albumin 2.2 L (3.5-5.0) g/dL 07/28/16 Range/Units 09:26 WBC (3.8-10.6) k/uL Neutrophils # (1.3-7.7) k/uL Lymphocytes # (1.0-4.8) k/uL Monocytes # (0-1.0) k/uL PT (9.0-12.0) sec INR (<1.1) APTT (22.0-30.0) sec Sodium (137-145) mmol/L Potassium (3.5-5.1) mmol/L Chloride (98-107) mmol/L Carbon Dioxide (22-30) mmol/L BUN (9-20) mg/dL Creatinine (0.66-1.25) mg/dL Glucose (74-99) mg/dL POC Glucose (mg/dL) 178 H (75-99) mg/dL Hemoglobin A1c (4.2-6.1) % Calcium (8.4-10.2) mg/dL Phosphorus (2.5-4.5) mg/dL Magnesium (1.6-2.3) mg/dL ALT (21-72) U/L Total Protein (6.3-8.2) g/dL Albumin (3.5-5.0) g/dL Microbiology - Last 24 Hours (Table) 07/26/16 19:30 Blood Culture - Preliminary Blood No Growth after 24 hours Assessment and Plan Plan: Septic shock Urinary tract infection, recent Pseudomonas infection, currently gram-negative bacilli Acute kidney injury Mild anion gap metabolic acidosis Lactic acidosis Mild thrombocytosis Coagulopathy of unknown significance Leukocytosis Severe abdominal pain, history of abdominal aortic aneurysm Diarrhea History of coronary artery disease History of hypertension History of Parkinson's Diabetes mellitus type 2 O2 to maintain saturation greater than or equal to 88% Levophed to maintain map greater than 65 Antibiotics: Zosyn, will add Flagyl for now DVT prophylaxis with SCDs due to elevated INR GI prophylaxis with Protonix Continue 0.45 due to rising Na/Cl Infectious disease, nephrology consult Stool for C. diff is negative Vitamin K for elevated INR Check fibrinogen, D-dimer Bronchodilators Monitor urine output Monitor labs Patient is currently not a surgical candidate, family does not want surgical intervention, continue medical therapy
[2016-07-28] MEDS ORDERED: VANCOMYCIN 1,500 MG in SODIUM CHLORIDE 0.9% 250 ML IVPB ONE (13:00)
[2016-07-28 13:20] LABS: Glucose,Whole Blood 145 mg/dL (75-99)
--- NOTE | 2016-07-28 16:05 | P.PN ---
Subjective This is an 85-year-old male with a previous medical history significant for coronary artery disease status post PCI and stent placement, hypertension and hypertensive cardiovascular disease with left ventricular hypertrophy, hyperlipidemia, history of osteoarthritis, history of kidney stones , enlarged prostate, 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 Patient fell again last night about 9:30 she states he started to fall and she helped him to the floor slowly there was no injury. Patient was unable to get up so she laid a blanket on the floor in a pillow and let him sleep here overnight. This morning she called EMS to help him off the floor and wanted him brought to the hospital checked out and hopefully get her some assistance. he was found to have a significant urinary tract infection with sepsis, chest x-ray showed a tiny left lower lobe infiltrate with a left-sided pleural effusion with the nodules in the lung did not change from 2013. Patient was admitted to the hospital urine culture was done as well as blood culture he was placed on IV antibiotic in the form of Levaquin 750 mg IV piggyback every 24 hours subsequently the patient was discharged to [facility] for physical therapy and rehabilitation under Dr. Schofield service, and the patient was sent into the emergency department at [facility] yesterday because of severe sepsis with acute kidney injury and top of chronic kidney disease he was admitted to the intensive care unit, he was given IV fluid he was seen and evaluated by nephrology because of his acute kidney injury , he was started on IV antibiotic in the form of vancomycin he was taken off his Levaquin, unfortunately patient last hospitalization showed Pseudomonas that resistant to fluoroquinolones and the patient was maintained on Levaquin. 07/28: Sodium 148, potassium 3.4, carbon dioxide 16, BUN 17 creatinine 3.3. Patient will be changed to IV fluids of 0.45 normal saline. Blood sugars have been elevated for which Humalog 7030 increased to 18 units twice daily. Patient is currently nothing by mouth except ice chips. Dr. Islas on consult for her CAT scan findings of cholecystitis likely the source of sepsis. Patient is not a surgical candidate and family do not want him to go for surgery. Percutaneous drain is option but INR is elevated. INR today is at 5.7. Dr. Steve is following for acute kidney injury. Dr. Luis is following for intensive care management. Is also having ongoing diarrhea and currently on fecal management system. He is on low-dose levo fed. Patient has been on vancomycin and Zosyn. Flagyl has been added and vancomycin discontinued. Objective - Vital Signs Vital signs: Vital Signs Temp 99.4 F 07/28/16 08:00 Pulse 103 H 07/28/16 10:00 Resp 26 H 07/28/16 10:00 BP 96/50 07/28/16 10:00 Pulse Ox 94 L 07/28/16 10:00 Intake & Output 07/27/16 07/28/16 07/28/16 18:59 06:59 18:59 Intake Total 1650.0 1223.099 592.1 Output Total 1525 484 150 Balance 125.0 739.099 442.1 Weight 96.2 kg Intake: IV 800 Sodium Chloride 0.9% 1, 800 000 ml @ 100 mls/hr IV . Q10H LV Rx#:[id number] Intake, IV Titration 790.0 1223.099 592.1 Amount Magnesium Sulfate-D5w Pmx 200 1 gm In Dextrose/Water 1 100ml.bag @ 100 mls/hr IVPB Q1H LV Rx#: [id number] Norepinephrine 4 mg In 52.5 160.599 42.1 Sodium Chloride 0.9% 250 ml @ Titrate IV .Q0M LV Rx#:[id number] Phytonadione 5 mg In 50 Sodium Chloride 0.9% 50 ml @ 100 mls/hr IVPB ONCE STA Rx#:[id number] Piperacillin-Tazobactam 3 37.5 62.5 50 .375 gm In Dextrose/Water 1 50ml.bag @ 12.5 mls/hr IVPB Q12HR LV Rx#: [id number] Potassium Chloride 10 meq 100 Lidocaine 2% Inj 10 mg In Sodium Chloride 0.9% 100 ml @ 100 mls/hr IV Q1HR LV Rx#:[id number] Sodium Chloride 0.45% 1, 300 900 350 000 ml @ 100 mls/hr IV . Q10H LV Rx#:[id number] metroNIDAZOLE-NS PMX 500 100 100 100 mg In Saline 1 100ml.bag @ 100 mls/hr IVPB Q8HR LV Rx#:[id number] Oral 60 Output: Urine 325 384 150 Stool 1200 100 Other: Voiding Method Indwelling Catheter Indwelling Catheter # Bowel Movements 3 - Exam General appearance: average body habitus, severe distress - EENT Eyes: anicteric sclerae, PERRLA, no ptosis, no scleral icterus, normal appearance ENT: hard of hearing, normal oropharynx, no thrush Ears: bilateral: normal - Neck Neck: no lymphadenopathy, normal ROM, no rigidity, no stridor, no thyromegaly Carotids: bilateral: upstroke delayed Thyroid: bilateral: normal size - Respiratory Respiratory: bilateral: diminished, dullness, rales, rhonchi, wheezing, prolonged expiration - Cardiovascular Rhythm: regular Heart sounds: normal: S1, S2 Abnormal Heart Sounds: systolic murmur, no S3 Gallop, no S4 Gallop - Gastrointestinal General gastrointestinal: decreased bowel sounds, distended, rigid, tenderness, no umbilical hernia, no ventral hernia Localized gastrointestinal: tender: diffuse - Integumentary Integumentary: flushed - Neurologic Neurologic: CNII-XII intact - Musculoskeletal Musculoskeletal: generalized weakness, strength equal bilaterally - Psychiatric Psychiatric: no A&O x's 3, no appropriate affect, no intact judgment & insight - Labs CBC & Chem 7: 07/28/16 04:11 07/28/16 04:11 Labs: Abnormal Lab Results - Last 24 Hours (Table) 07/27/16 07/27/16 07/27/16 Range/Units 03:33 12:08 17:45 WBC (3.8-10.6) k/uL Neutrophils # (1.3-7.7) k/uL Lymphocytes # (1.0-4.8) k/uL Monocytes # (0-1.0) k/uL PT (9.0-12.0) sec INR (<1.1) APTT (22.0-30.0) sec Sodium (137-145) mmol/L Potassium (3.5-5.1) mmol/L Chloride (98-107) mmol/L Carbon Dioxide (22-30) mmol/L BUN (9-20) mg/dL Creatinine (0.66-1.25) mg/dL Glucose (74-99) mg/dL POC Glucose (mg/dL) 140 H 184 H (75-99) mg/dL Hemoglobin A1c 6.6 H (4.2-6.1) % Calcium (8.4-10.2) mg/dL Phosphorus (2.5-4.5) mg/dL Magnesium (1.6-2.3) mg/dL ALT (21-72) U/L Total Protein (6.3-8.2) g/dL Albumin (3.5-5.0) g/dL 07/27/16 07/28/16 07/28/16 Range/Units 17:59 00:14 04:11 WBC 18.3 H (3.8-10.6) k/uL Neutrophils # 15.9 H (1.3-7.7) k/uL Lymphocytes # 0.5 L (1.0-4.8) k/uL Monocytes # 1.4 H (0-1.0) k/uL PT (9.0-12.0) sec INR (<1.1) APTT (22.0-30.0) sec Sodium 146 H (137-145) mmol/L Potassium (3.5-5.1) mmol/L Chloride 116 H (98-107) mmol/L Carbon Dioxide 15 L (22-30) mmol/L BUN 67 H (9-20) mg/dL Creatinine 3.42 H (0.66-1.25) mg/dL Glucose 214 H (74-99) mg/dL POC Glucose (mg/dL) 199 H (75-99) mg/dL Hemoglobin A1c (4.2-6.1) % Calcium 7.1 L (8.4-10.2) mg/dL Phosphorus 4.9 H (2.5-4.5) mg/dL Magnesium 2.5 H (1.6-2.3) mg/dL ALT 19 L (21-72) U/L Total Protein 5.2 L (6.3-8.2) g/dL Albumin 2.3 L (3.5-5.0) g/dL 07/28/16 07/28/16 07/28/16 Range/Units 04:11 04:11 06:00 WBC (3.8-10.6) k/uL Neutrophils # (1.3-7.7) k/uL Lymphocytes # (1.0-4.8) k/uL Monocytes # (0-1.0) k/uL PT 57.4 H (9.0-12.0) sec INR 5.7 H* (<1.1) APTT 43.8 H (22.0-30.0) sec Sodium 148 H (137-145) mmol/L Potassium 3.4 L (3.5-5.1) mmol/L Chloride 118 H (98-107) mmol/L Carbon Dioxide 16 L (22-30) mmol/L BUN 70 H (9-20) mg/dL Creatinine 3.30 H (0.66-1.25) mg/dL Glucose 177 H (74-99) mg/dL POC Glucose (mg/dL) 151 H (75-99) mg/dL Hemoglobin A1c (4.2-6.1) % Calcium 7.4 L (8.4-10.2) mg/dL Phosphorus (2.5-4.5) mg/dL Magnesium 2.5 H (1.6-2.3) mg/dL ALT 17 L (21-72) U/L Total Protein 4.8 L (6.3-8.2) g/dL Albumin 2.2 L (3.5-5.0) g/dL 07/28/16 Range/Units 09:26 WBC (3.8-10.6) k/uL Neutrophils # (1.3-7.7) k/uL Lymphocytes # (1.0-4.8) k/uL Monocytes # (0-1.0) k/uL PT (9.0-12.0) sec INR (<1.1) APTT (22.0-30.0) sec Sodium (137-145) mmol/L Potassium (3.5-5.1) mmol/L Chloride (98-107) mmol/L Carbon Dioxide (22-30) mmol/L BUN (9-20) mg/dL Creatinine (0.66-1.25) mg/dL Glucose (74-99) mg/dL POC Glucose (mg/dL) 178 H (75-99) mg/dL Hemoglobin A1c (4.2-6.1) % Calcium (8.4-10.2) mg/dL Phosphorus (2.5-4.5) mg/dL Magnesium (1.6-2.3) mg/dL ALT (21-72) U/L Total Protein (6.3-8.2) g/dL Albumin (3.5-5.0) g/dL Microbiology - Last 24 Hours (Table) 07/26/16 19:30 Blood Culture - Preliminary Blood No Growth after 24 hours Assessment and Plan Plan: 1. Acute cholecystitis and/or urinary tract infection with severe sepsis and septic shock with possible pseudomonas UTI. ICU, IV fluid resuscitation in the form of normal sitting, Levophed, discontinue Vancomycin, start the patient on Zosyn 2.25 g IV piggyback every 8 hours, urine culture as well as blood culture 2, continue patient also on fluid resuscitation, monitor the patient the CMP, lactic acid, as well as WBC. Consult w Dr Islas appreciated. Dr. Luis is following for intensive care management. 2. Leukocytosis secondary to severe sepsis. Continue IV fluid resuscitation, continue IV antibiotic, repeat CBC in the next 24 hours. 3. 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 Continue IV fluid resuscitation, discontinue vancomycin, discontinue Levaquin, continue IV fluid resuscitation, continue Levophed, nephrology consultation, computed tomography scan of the abdomen and pelvis as above. 4. Severe abdominal pain with a prior history of abdominal aortic aneurysm back in 2013. We will obtain computed tomography scan of the abdomen and pelvis with oral contrast only. 5. Severe diarrhea. Check the stool for C. difficile, toxins a and B, check the stool culture, continue IV fluid resuscitation, discontinue vancomycin. 6. Anion gap metabolic acidosis as well as metabolic alkalosis. Continue IV fluid resuscitation, discontinue diuretics. 7. Lactic acidosis. Due to sepsis, continue IV fluid, continue IV antibiotic, repeat lactic acid in the next 24 hours. 8. CAD post-PCI. Continue aspirin 81 mg once every day, pravastatin 40, bedtime, hold off metoprolol for now. 9. Hypertension and hypertensive cardiovascular disease. Currently hypotensive we'll hold off antihypertensive medicine. 10. Enlarged prostate. Currently has a Burr catheter in place. 11. Parkinsonism. Currently on Sinemet 25/100 one tablet orally twice every day. 12. Diabetes mellitus type 2 with diabetic polyneuropathy. Continue patient on NovoLog Mix 70/30, continue patient on BGM 4 times every day. 13. Coagulopathy due to sepsis. 14. DVT prophylaxis. Heparin held due to coagulopathy. 15. GI prophylaxis. Protonix 40 mg IV push every 24 hours 16. No code. Impression and plan of care have been directed as dictated by the signing physician. Linn Joseph nurse practitioner acting as scribe for signing physician. Time with Patient: Greater than 30
--- NOTE | 2016-07-28 18:29 | P.PN ---
Subjective Principal diagnosis: Cholecystitis Patient remains somewhat confused. According to nursing staff he is more alert than he had been however. He is off of the pressors that he was on. His INR actually went higher today. White blood cell count 18. Liver enzymes normal. Objective - Vital Signs Vital signs: Vital Signs Temp 100.1 F H 07/28/16 16:00 Pulse 103 H 07/28/16 18:00 Resp 29 H 07/28/16 18:00 BP 90/42 07/28/16 18:00 Pulse Ox 92 L 07/28/16 18:00 Intake & Output 07/27/16 07/28/16 07/28/16 18:59 06:59 18:59 Intake Total 1650.0 5785.848 6568.262 Output Total 1525 484 505 Balance 125.0 198.181 0939.262 Weight 96.2 kg 96.2 kg Intake: IV 800 Sodium Chloride 0.9% 1, 800 000 ml @ 100 mls/hr IV . Q10H LV Rx#:[id number] Intake, IV Titration 790.0 7757.105 8175.262 Amount Magnesium Sulfate-D5w Pmx 200 1 gm In Dextrose/Water 1 100ml.bag @ 100 mls/hr IVPB Q1H LV Rx#: [id number] Norepinephrine 4 mg In 52.5 160.599 68.262 Sodium Chloride 0.9% 250 ml @ Titrate IV .Q0M LV Rx#:[id number] Phytonadione 5 mg In 50 Sodium Chloride 0.9% 50 ml @ 100 mls/hr IVPB ONCE STA Rx#:[id number] Piperacillin-Tazobactam 3 37.5 62.5 50 .375 gm In Dextrose/Water 1 50ml.bag @ 12.5 mls/hr IVPB Q12HR LV Rx#: [id number] Potassium Chloride 10 meq 100 Lidocaine 2% Inj 10 mg In Sodium Chloride 0.9% 100 ml @ 100 mls/hr IV Q1HR LV Rx#:[id number] Sodium Chloride 0.45% 1, 635 905 6970 000 ml @ 100 mls/hr IV . Q10H LV Rx#:[id number] metroNIDAZOLE-NS PMX 500 100 100 200 mg In Saline 1 100ml.bag @ 100 mls/hr IVPB Q8HR LV Rx#:[id number] Oral 60 Output: Urine 325 384 405 Stool 1200 100 100 Other: Voiding Method Indwelling Catheter Indwelling Catheter Indwelling Catheter # Bowel Movements 3 - Exam Abdomen: Soft, mild distention, mild to moderate diffuse tenderness with slightly greater tenderness in the right upper quadrant - Labs CBC & Chem 7: 07/28/16 04:11 07/28/16 04:11 Labs: Abnormal Lab Results - Last 24 Hours (Table) 07/27/16 07/28/16 07/28/16 Range/Units 17:59 00:14 04:11 WBC 18.3 H (3.8-10.6) k/uL Neutrophils # 15.9 H (1.3-7.7) k/uL Lymphocytes # 0.5 L (1.0-4.8) k/uL Monocytes # 1.4 H (0-1.0) k/uL PT (9.0-12.0) sec INR (<1.1) APTT (22.0-30.0) sec Fibrinogen (200-500) mg/dL D-Dimer (<0.60) mg/L FEU Sodium 146 H (137-145) mmol/L Potassium (3.5-5.1) mmol/L Chloride 116 H (98-107) mmol/L Carbon Dioxide 15 L (22-30) mmol/L BUN 67 H (9-20) mg/dL Creatinine 3.42 H (0.66-1.25) mg/dL Glucose 214 H (74-99) mg/dL POC Glucose (mg/dL) 199 H (75-99) mg/dL Calcium 7.1 L (8.4-10.2) mg/dL Phosphorus 4.9 H (2.5-4.5) mg/dL Magnesium 2.5 H (1.6-2.3) mg/dL ALT 19 L (21-72) U/L Total Protein 5.2 L (6.3-8.2) g/dL Albumin 2.3 L (3.5-5.0) g/dL 07/28/16 07/28/16 07/28/16 Range/Units 04:11 04:11 06:00 WBC (3.8-10.6) k/uL Neutrophils # (1.3-7.7) k/uL Lymphocytes # (1.0-4.8) k/uL Monocytes # (0-1.0) k/uL PT 57.4 H (9.0-12.0) sec INR 5.7 H* (<1.1) APTT 43.8 H (22.0-30.0) sec Fibrinogen (200-500) mg/dL D-Dimer (<0.60) mg/L FEU Sodium 148 H (137-145) mmol/L Potassium 3.4 L (3.5-5.1) mmol/L Chloride 118 H (98-107) mmol/L Carbon Dioxide 16 L (22-30) mmol/L BUN 70 H (9-20) mg/dL Creatinine 3.30 H (0.66-1.25) mg/dL Glucose 177 H (74-99) mg/dL POC Glucose (mg/dL) 151 H (75-99) mg/dL Calcium 7.4 L (8.4-10.2) mg/dL Phosphorus (2.5-4.5) mg/dL Magnesium 2.5 H (1.6-2.3) mg/dL ALT 17 L (21-72) U/L Total Protein 4.8 L (6.3-8.2) g/dL Albumin 2.2 L (3.5-5.0) g/dL 07/28/16 07/28/16 07/28/16 Range/Units 09:26 12:24 13:18 WBC (3.8-10.6) k/uL Neutrophils # (1.3-7.7) k/uL Lymphocytes # (1.0-4.8) k/uL Monocytes # (0-1.0) k/uL PT (9.0-12.0) sec INR (<1.1) APTT (22.0-30.0) sec Fibrinogen 685 H (200-500) mg/dL D-Dimer 3.25 H (<0.60) mg/L FEU Sodium (137-145) mmol/L Potassium (3.5-5.1) mmol/L Chloride (98-107) mmol/L Carbon Dioxide (22-30) mmol/L BUN (9-20) mg/dL Creatinine (0.66-1.25) mg/dL Glucose (74-99) mg/dL POC Glucose (mg/dL) 178 H 145 H (75-99) mg/dL Calcium (8.4-10.2) mg/dL Phosphorus (2.5-4.5) mg/dL Magnesium (1.6-2.3) mg/dL ALT (21-72) U/L Total Protein (6.3-8.2) g/dL Albumin (3.5-5.0) g/dL Microbiology - Last 24 Hours (Table) 07/26/16 19:30 Blood Culture - Preliminary Blood No Growth after 24 hours Assessment and Plan (1) Acute cholecystitis Narrative/Plan: Continue IV antibiotics and medical care. Monitor the patient's INR level. If the patient continues to improve would consider ongoing IV antibiotics as the primary treatment option. If the patient has ongoing hypotension issues would consider percutaneous drain placement. Patient's family had stated that they were not interested in surgical intervention at this time. The patient is currently not a surgical candidate as it stands. Status: Acute
[2016-07-28 19:00] LABS: Glucose,Whole Blood 141 mg/dL (75-99)
[2016-07-29] MEDS: metroNIDAZOLE-NS PMX 500 MG in SALINE 1 100ML.BAG IVPB SCH ×3 (00:05→16:36)
[2016-07-29] MEDS: INSULIN LISPRO (humaLOG) 300 UNIT/3 ML VIAL SQ SCH ×4 (00:05→18:08)
[2016-07-29] MEDS: METOPROLOL TARTRATE 5 MG/5 ML VIAL IVP SCH ×4 (00:05→20:37)
[2016-07-29 00:06] LABS: Glucose,Whole Blood 145 mg/dL (75-99)
[2016-07-29 05:20] LABS: INR 1.4 (<1.1); Prothrombin Time 13.3 sec (9.0-12.0)
[2016-07-29 05:24] LABS: Calcium 7.4 mg/dL (8.4-10.2); Magnesium 2.6 mg/dL (1.6-2.3); Phosphorous 3.4 mg/dL (2.5-4.5); Total Bilirubin 0.9 mg/dL (0.2-1.3); Total Protein 4.9 g/dL (6.3-8.2)
[2016-07-29 05:27] LABS: Potassium 2.9 mmol/L (3.5-5.1)
[2016-07-29 05:30] LABS: Basophils % (A) 0 %; CH 29.8; CHCM 31.7; Eosinophils % (A) 0 %; HCT 41.9 % (39.0-53.0); HDW 2.83; HGB 13.1 gm/dL (13.0-17.5); Hypochromasia Slight; Luc # (Auto) 0.36; Luc % (Auto) 2; Lymphocytes # (A) 0.6 k/uL (1.0-4.8); Lymphocytes % (A) 4 %; MCH 29.5 pg (25.0-35.0); MCHC 31.2 g/dL (31.0-37.0); MCV 94.5 fL (80.0-100.0); Mean Platelet Volume 8.8; Monocytes # (A) 0.8 k/uL (0-1.0); Monocytes % (A) 5 %; Neutrophils # (A) 13.8 k/uL (1.3-7.7); Neutrophils % (A) 89 %; RBC 4.43 m/uL (4.30-5.90); RDW 15.1 % (11.5-15.5); WBC 15.5 k/uL (3.8-10.6); WBC (Perox) 16.28
[2016-07-29] MEDS: POTASSIUM CHLORIDE 20 MEQ, LIDOCAINE 2% INJ 20 MG in SODIUM CHLORIDE 0.9% 100 ML IVPB SCH ×5 (06:21→16:58)
[2016-07-29] MEDS: DEXTROSE 5% IN WATER 1,000 ML IV SCH ×2 (06:21→16:58)
[2016-07-29] MEDS: SODIUM CHLORIDE 0.45% 1,000 ML IV SCH (06:25)
[2016-07-29 06:29] LABS: Glucose,Whole Blood 155 mg/dL (75-99)
--- NOTE | 2016-07-29 07:15 | XR ---
EXAMINATION TYPE: XR chest 1V DATE OF EXAM: 07/29/2016 6:33 AM COMPARISON: 07/28/2016 HISTORY: 85 year-old male shortness of breath TECHNIQUE: Single frontal view of the chest is obtained. FINDINGS: Lung volumes are somewhat low with crowded vascular markings. Heart upper limits of normal in size. S table pulmonary nodule at the peripheral left base. Mild interstitial prominence. Continued small lef t pleural effusion with adjacent opacity. IMPRESSION: Overall stable findings, some hypoventilatory changes with a small left pleural effusion with adjacen t atelectasis and/or consolidation.
[2016-07-29] MEDS: IPRATROPIUM-ALBUTEROL 3 ML NEB INHALATION SCH ×4 (07:29→20:05)
[2016-07-29] MEDS: NOREPINEPHRINE 4 MG in SODIUM CHLORIDE 0.9% 250 ML IV SCH (07:59)
[2016-07-29] MEDS: PANTOPRAZOLE 40 MG/10 ML VIAL IV SCH (08:01)
[2016-07-29] MEDS: PIPERACILLIN-TAZOBACTAM 3.375 GM in DEXTROSE/WATER 1 50ML.BAG IVPB SCH ×2 (08:02→20:40)
[2016-07-29] MEDS: CARBIDOPA-LEVODOPA 25-100 MG 1 EACH TAB PO SCH ×2 (08:02→20:36)
[2016-07-29] MEDS: CYANOCOBALAMIN 500 MCG TAB PO SCH (08:02)
[2016-07-29 08:46] LABS: Glucose,Whole Blood 219 mg/dL (75-99)
[2016-07-29] MEDS: INSULN ASP PRT/INSULIN ASPART 100 UNIT/ML 10 ML VIAL SQ SCH ×2 (08:49→20:40)
--- NOTE | 2016-07-29 10:12 | P.PN ---
Subjective This is a 85-year-old male seen in consultation because of acute kidney injury. His creatinine went up from a baseline of 1.2 on 07/10/2016 to -3.9 on admission. He came in with history of syncope and was thought to have had a stroke. But a few hours later he is able to move all his extremities and follows commands. He was given 5 L of fluid in the emergency room and over the last 24 hours his started to make urine. He is found to have gram-negative UTI, it has not been identified and no sensitivities have been reported although the culture was positive on 07/26/2016. He is on antibiotics. He improved but continues to have significant abdominal pain. A computed tomography scan is suggestive of colitis as well as gallstones. Pain is on both sides of the abdomen. He also has profuse diarrhea and has a rectal Burr.A computed tomography scan of the abdomen done yesterday shows dilated bile duct and gallstones. Additionally there seems to be colitis with thickened colonic wall, bilateral lower lobe infiltrates, 8 mm left upper lobe nodule. 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 Additionally bladder wall is thickened, a 4.5 cm abdominal aortic aneurysm with the stent is noted prostate is enlarged. He is making fair amount of urine. On 07/28/2016 he also became hypernatremic. Overnight his IV fluids were changed to D5W. He remains somewhat obtunded arousable follows commands and answers questions with monosyllables. His past history significant for UTI recently with Pseudomonas on 07/05/2016 3 weeks ago. A computed tomography scan showed a 5 cm aneurysm in 2013. There is a left ureteral stent in 2014 CT. This is no been followed up to the best of my knowledge based on EMR. . His past history significant for coronary artery disease diabetes mellitus COPD prostatism history of acute IA heart catheterization with stent and as mentioned above left ureteral stent seen on computed tomography scan in 2013. Objective - Vital Signs Vital signs: Vital Signs Temp 99.8 F H 07/29/16 08:00 Pulse 91 07/29/16 09:00 Resp 26 H 07/29/16 09:00 BP 115/51 07/29/16 09:00 Pulse Ox 94 L 07/29/16 09:00 Intake & Output 07/28/16 07/29/1607/29/17 18:59 06:59 18:59 Intake Total 1891.975 5930 681.254 Output Total 505 555 450 Balance 1013.262 845 231.254 Weight 96.2 kg 100.8 kg Intake: Intake, IV Titration 2701.745 6676 681.254 Amount Dextrose 5% in Water 1, 100 300 000 ml @ 100 mls/hr IV . Q10H [facility] Rx#:[id number] Norepinephrine 4 mg In 68.262 0 131.254 Sodium Chloride 0.9% 250 ml @ Titrate IV .Q0M [facility] Rx#:[id number] Phytonadione 5 mg In 50 Sodium Chloride 0.9% 50 ml @ 100 mls/hr IVPB ONCE [facility] Rx#:[id number] Piperacillin-Tazobactam 3 50 50 .375 gm In Dextrose/Water 1 50ml.bag @ 12.5 mls/hr IVPB Q12HR [facility] Rx#: [id number] Potassium Chloride 20 meq 100 100 Lidocaine 2% Inj 20 mg In Sodium Chloride 0.9% 100 ml @ 55.5 mls/hr IVPB Q2HR [facility] Rx#:[id number] Sodium Chloride 0.45% 1, 1150 1100 000 ml @ 100 mls/hr IV . Q10H [facility] Rx#:[id number] metroNIDAZOLE-NS PMX 500 200 100 100 mg In Saline 1 100ml.bag @ 100 mls/hr IVPB Q8HR [facility] Rx#:[id number] Output: Urine 405 555 150 Stool 100 300 Other: Voiding Method Indwelling Catheter Indwelling Catheter On examination he is sleepy but arousable follows command looks tired and weak. HEENT exam no JVP neck is supple no facial asymmetry Lungs are clear with an occasional coarse crackle. Fair air entry Heart sounds are unremarkable for any murmur rub gallop On the monitor is showing normal sinus rhythm with occasional PACs Abdomen is soft but tender over all. No masses felt. Bowel sounds are diminished. Extremity exam was no edema Warm to touch. Neurologically arousable and moves all his extremities but profoundly weak. - Labs CBC & Chem 7: 07/29/16 04:37 07/29/16 04:37 Labs: Abnormal Lab Results - Last 24 Hours (Table) 07/28/16 07/28/16 07/28/16 Range/Units 12:24 13:18 18:55 WBC (3.8-10.6) k/uL Plt Count (150-450) k/uL Neutrophils # (1.3-7.7) k/uL Lymphocytes # (1.0-4.8) k/uL PT (9.0-12.0) sec APTT (22.0-30.0) sec Fibrinogen 685 H (200-500) mg/dL D-Dimer 3.25 H (<0.60) mg/L FEU Sodium (137-145) mmol/L Potassium (3.5-5.1) mmol/L Chloride (98-107) mmol/L Carbon Dioxide (22-30) mmol/L BUN (9-20) mg/dL Creatinine (0.66-1.25) mg/dL Glucose (74-99) mg/dL POC Glucose (mg/dL) 145 H 141 H (75-99) mg/dL Calcium (8.4-10.2) mg/dL Magnesium (1.6-2.3) mg/dL Total Protein (6.3-8.2) g/dL Albumin (3.5-5.0) g/dL 07/29/16 07/29/16 07/29/16 Range/Units 00:04 04:37 04:37 WBC 15.5 H (3.8-10.6) k/uL Plt Count 128 L (150-450) k/uL Neutrophils # 13.8 H (1.3-7.7) k/uL Lymphocytes # 0.6 L (1.0-4.8) k/uL PT (9.0-12.0) sec APTT (22.0-30.0) sec Fibrinogen (200-500) mg/dL D-Dimer (<0.60) mg/L FEU Sodium 151 H (137-145) mmol/L Potassium 2.9 L* (3.5-5.1) mmol/L Chloride 123 H* (98-107) mmol/L Carbon Dioxide 16 L (22-30) mmol/L BUN 69 H (9-20) mg/dL Creatinine 3.31 H (0.66-1.25) mg/dL Glucose 172 H (74-99) mg/dL POC Glucose (mg/dL) 145 H (75-99) mg/dL Calcium 7.4 L (8.4-10.2) mg/dL Magnesium 2.6 H (1.6-2.3) mg/dL Total Protein 4.9 L (6.3-8.2) g/dL Albumin 2.1 L (3.5-5.0) g/dL 07/29/16 07/29/16 07/29/16 Range/Units 04:37 06:27 08:43 WBC (3.8-10.6) k/uL Plt Count (150-450) k/uL Neutrophils # (1.3-7.7) k/uL Lymphocytes # (1.0-4.8) k/uL PT 13.3 H (9.0-12.0) sec APTT 31.0 H (22.0-30.0) sec Fibrinogen (200-500) mg/dL D-Dimer (<0.60) mg/L FEU Sodium (137-145) mmol/L Potassium (3.5-5.1) mmol/L Chloride (98-107) mmol/L Carbon Dioxide (22-30) mmol/L BUN (9-20) mg/dL Creatinine (0.66-1.25) mg/dL Glucose (74-99) mg/dL POC Glucose (mg/dL) 155 H 219 H (75-99) mg/dL Calcium (8.4-10.2) mg/dL Magnesium (1.6-2.3) mg/dL Total Protein (6.3-8.2) g/dL Albumin (3.5-5.0) g/dL Microbiology - Last 24 Hours (Table) 07/26/16 19:30 Blood Culture - Preliminary Blood No Growth after 48 hours Assessment and Plan Plan: Impression. 1. Acute kidney injury with creatinine peaking at 3.9, urine output is improved , 960 mL for the last 24 hours, creatinine is down from peak of 3.9- 3.3 or the last 3 days.Etiology is ATN and prerenal from hypotension. 2. Gram-negative UTI, sensitivities and identification is not available for reasons not clear. Previously He had Pseudomonas UTI dated 07/05/20 16. Previous computed tomography scan 2013 showed a left ureteral stent. None is seen on the computed tomography scan done yesterday to 07/27/2016 3. Mild CKD with a creatinine of 1.2 dated 07/10/2016. 4. Abdominal aortic aneurysm 5 cm based on computed tomography scan 2013, computed tomography scan done 07/27/2016 yesterday shows a 4.5 cm abdominal aortic aneurysm with the stent 5.A computed tomography scan of the abdomen done 07/27/2016 shows dilated bile duct and gallstones. 6. CT shows colitis with thickened colonic wall, 7. Computed tomography scan shows bilateral lower lobe infiltrates, 8 mm left upper lobe nodule. 8. 3.9 cm hyperdense lesion in the left kidney likely cysts, 9. 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 10. Additionally bladder wall is thickened, 11. Computed tomography scan showed prostate is enlarged. 12. Mild gap acidosis with bicarb of 16 stable, anion gap of an anion gap of 12. Etiology is diarrhea and acute kidney injury. 14. Hypotension likely from sepsis troponin is 0.13. Blood pressure is better controlled 15. Hypokalemia scan to GI losses with diarrhea. Potassium is 2.9 16. Hypernatremia with a sodium of 151 secondary to decreased free water intake and excessive GI losses and and acute kidney injury that is failing to osmolar regulate. Recommendation. Change IV fluids to D5W because of the hypernatremia. Watch blood sugars as it might go up with the D5W. Potassium replaced with 60 mEq. Watch phosphorus as it might go down with the profuse diarrhea Consider ischemic colitis.
[2016-07-29] MEDS ORDERED: ALBUMIN HUMAN 25% 50 ML in EMPTY BAG 1 BAG IVPB ONE (10:43)
--- NOTE | 2016-07-29 10:48 | P.PN ---
Subjective Principal diagnosis: Sepsis Patient seen and examined in the ICU with nursing staff at bedside. Patient is back on 2 g of Levophed. He was off her period time yesterday. The patient's urine output has been adequate at 30-45 mL an hour. He is hypernatremic today despite changing fluids yesterday. He continues to have watery stools. Objective - Vital Signs Vital signs: Vital Signs Temp 99.8 F H 07/29/16 08:00 Pulse 93 07/29/16 10:00 Resp 26 H 07/29/16 10:00 BP 104/52 07/29/16 10:00 Pulse Ox 89 L 07/29/16 10:00 Intake & Output 07/28/16 07/29/16 07/29/16 18:59 06:59 18:59 Intake Total 9495.117 7560 701.320 Output Total 505 555 450 Balance 1013.262 845 251.320 Weight 96.2 kg 100.8 kg Intake: Intake, IV Titration 3482.722 4572 701.320 Amount Dextrose 5% in Water 1, 100 300 000 ml @ 100 mls/hr IV . Q10H [facility] Rx#:[id number] Norepinephrine 4 mg In 68.262 0 151.320 Sodium Chloride 0.9% 250 ml @ Titrate IV .Q0M [facility] Rx#:[id number] Phytonadione 5 mg In 50 Sodium Chloride 0.9% 50 ml @ 100 mls/hr IVPB ONCE [facility] Rx#:[id number] Piperacillin-Tazobactam 3 50 50 .375 gm In Dextrose/Water 1 50ml.bag @ 12.5 mls/hr IVPB Q12HR [facility] Rx#: [id number] Potassium Chloride 20 meq 100 100 Lidocaine 2% Inj 20 mg In Sodium Chloride 0.9% 100 ml @ 55.5 mls/hr IVPB Q2HR [facility] Rx#:[id number] Sodium Chloride 0.45% 1, 1150 1100 000 ml @ 100 mls/hr IV . Q10H [facility] Rx#:[id number] metroNIDAZOLE-NS PMX 500 200 100 100 mg In Saline 1 100ml.bag @ 100 mls/hr IVPB Q8HR [facility] Rx#:[id number] Output: Urine 405 555 150 Stool 100 300 Other: Voiding Method Indwelling Catheter Indwelling Catheter - Exam Gen.: Patient opens his eyes to verbal stimuli, he will answer questions but is slow to respond Cardiovascular: Regular rate and rhythm, S1/S2, tachycardia Lungs: Diminished breath sounds at the bilateral bases Abdomen: Soft nontender nondistended positive bowel sounds Extremities: No edema - Labs CBC & Chem 7: 07/29/16 04:37 07/29/16 04:37 Labs: Abnormal Lab Results - Last 24 Hours (Table) 07/28/16 07/28/16 07/28/16 Range/Units 12:24 13:18 18:55 WBC (3.8-10.6) k/uL Plt Count (150-450) k/uL Neutrophils # (1.3-7.7) k/uL Lymphocytes # (1.0-4.8) k/uL PT (9.0-12.0) sec APTT (22.0-30.0) sec Fibrinogen 685 H (200-500) mg/dL D-Dimer 3.25 H (<0.60) mg/L FEU Sodium (137-145) mmol/L Potassium (3.5-5.1) mmol/L Chloride (98-107) mmol/L Carbon Dioxide (22-30) mmol/L BUN (9-20) mg/dL Creatinine (0.66-1.25) mg/dL Glucose (74-99) mg/dL POC Glucose (mg/dL) 145 H 141 H (75-99) mg/dL Calcium (8.4-10.2) mg/dL Magnesium (1.6-2.3) mg/dL Total Protein (6.3-8.2) g/dL Albumin (3.5-5.0) g/dL 07/29/16 07/29/16 07/29/16 Range/Units 00:04 04:37 04:37 WBC 15.5 H (3.8-10.6) k/uL Plt Count 128 L (150-450) k/uL Neutrophils # 13.8 H (1.3-7.7) k/uL Lymphocytes # 0.6 L (1.0-4.8) k/uL PT (9.0-12.0) sec APTT (22.0-30.0) sec Fibrinogen (200-500) mg/dL D-Dimer (<0.60) mg/L FEU Sodium 151 H (137-145) mmol/L Potassium 2.9 L* (3.5-5.1) mmol/L Chloride 123 H* (98-107) mmol/L Carbon Dioxide 16 L (22-30) mmol/L BUN 69 H (9-20) mg/dL Creatinine 3.31 H (0.66-1.25) mg/dL Glucose 172 H (74-99) mg/dL POC Glucose (mg/dL) 145 H (75-99) mg/dL Calcium 7.4 L (8.4-10.2) mg/dL Magnesium 2.6 H (1.6-2.3) mg/dL Total Protein 4.9 L (6.3-8.2) g/dL Albumin 2.1 L (3.5-5.0) g/dL 07/29/16 07/29/16 07/29/16 Range/Units 04:37 06:27 08:43 WBC (3.8-10.6) k/uL Plt Count (150-450) k/uL Neutrophils # (1.3-7.7) k/uL Lymphocytes # (1.0-4.8) k/uL PT 13.3 H (9.0-12.0) sec APTT 31.0 H (22.0-30.0) sec Fibrinogen (200-500) mg/dL D-Dimer (<0.60) mg/L FEU Sodium (137-145) mmol/L Potassium (3.5-5.1) mmol/L Chloride (98-107) mmol/L Carbon Dioxide (22-30) mmol/L BUN (9-20) mg/dL Creatinine (0.66-1.25) mg/dL Glucose (74-99) mg/dL POC Glucose (mg/dL) 155 H 219 H (75-99) mg/dL Calcium (8.4-10.2) mg/dL Magnesium (1.6-2.3) mg/dL Total Protein (6.3-8.2) g/dL Albumin (3.5-5.0) g/dL Microbiology - Last 24 Hours (Table) 07/26/16 19:30 Blood Culture - Preliminary Blood No Growth after 48 hours Assessment and Plan Plan: Septic shock Urinary tract infection, recent Pseudomonas infection, currently gram-negative bacilli Acute kidney injury Mild anion gap metabolic acidosis Gastroenteritis Cholecystitis Lactic acidosis Mild thrombocytosis Coagulopathy of unknown significance Leukocytosis Severe abdominal pain, history of abdominal aortic aneurysm Diarrhea History of coronary artery disease History of hypertension History of Parkinson's Diabetes mellitus type 2 O2 to maintain saturation greater than or equal to 88% Levophed to maintain map greater than 65 Antibiotics: Zosyn, will add Flagyl for now DVT prophylaxis with SCDs due to elevated INR GI prophylaxis with Protonix Change IV fluids to D5W Check stool for culture and ova and parasites Will order PICC line for TPN Speech for swallow eval Will give albumin 1 now Infectious disease, nephrology consult Stool for C. diff is negative Vitamin K for elevated INR Check fibrinogen, D-dimer Bronchodilators Monitor urine output Chest PT, frequent suctioning, percussion Monitor labs Patient is currently not a surgical candidate, family does not want surgical intervention, continue medical therapy. May need percutaneous drain per surgical team.
[2016-07-29 12:09] LABS: Glucose,Whole Blood 161 mg/dL (75-99)
[2016-07-29] MEDS ORDERED: MVI, ADULT NO.4 WITH VIT K 10 ML, TRACE (CONC-1ML/DOSE) 1 ML in AMINO ACID 4.25%-D10W+L... IV SCH ×3 (13:00)
[2016-07-29 13:23] LABS: Potassium 3.3 mmol/L (3.5-5.1)
--- NOTE | 2016-07-29 13:25 | P.PN ---
Subjective Principal diagnosis: Acute cholecystitis with cholangitis and sepsis The patient is seen on rounds. He denies any pain but is not feeling well. Nursing reports he had to go back on some low-dose levo said for hypotension. Objective - Vital Signs Vital signs: Vital Signs Temp 99.8 F H 07/29/16 08:00 Pulse 91 07/29/16 12:00 Resp 26 H 07/29/16 12:00 BP 106/52 07/29/16 12:00 Pulse Ox 92 L 07/29/16 12:00 Intake & Output 07/28/16 07/29/16 07/29/16 18:59 06:59 18:59 Intake Total 1259.537 7423 1006.400 Output Total 505 555 550 Balance 1013.262 845 456.400 Weight 96.2 kg 100.8 kg Intake: Intake, IV Titration 6167.266 6455 1006.400 Amount Dextrose 5% in Water 1, 100 500 000 ml @ 100 mls/hr IV . Q10H [facility] Rx#:[id number] Norepinephrine 4 mg In 68.262 0 156.400 Sodium Chloride 0.9% 250 ml @ Titrate IV .Q0M [facility] Rx#:[id number] Phytonadione 5 mg In 50 Sodium Chloride 0.9% 50 ml @ 100 mls/hr IVPB ONCE [facility] Rx#:[id number] Piperacillin-Tazobactam 3 50 50 .375 gm In Dextrose/Water 1 50ml.bag @ 12.5 mls/hr IVPB Q12HR [facility] Rx#: [id number] Potassium Chloride 20 meq 100 200 Lidocaine 2% Inj 20 mg In Sodium Chloride 0.9% 100 ml @ 55.5 mls/hr IVPB Q2HR [facility] Rx#:[id number] Sodium Chloride 0.45% 1, 1150 1100 000 ml @ 100 mls/hr IV . Q10H [facility] Rx#:[id number] metroNIDAZOLE-NS PMX 500 200 100 100 mg In Saline 1 100ml.bag @ 100 mls/hr IVPB Q8HR [facility] Rx#:[id number] Output: Urine 405 555 250 Stool 100 300 Other: Voiding Method Indwelling Catheter Indwelling Catheter - Constitutional Constitutional Comment(s): Appears ill General appearance: Present: cooperative - Respiratory Respiratory: bilateral: diminished (At the bases), negative: wheezing - Cardiovascular Rhythm: regular - Gastrointestinal General gastrointestinal: Present: decreased bowel sounds, tenderness (Diffuse tenderness with Peterson sign) - Labs CBC & Chem 7: 07/29/16 04:37 07/29/16 04:37 Labs: Abnormal Lab Results - Last 24 Hours (Table) 07/28/16 07/28/16 07/29/16 Range/Units 12:24 18:55 00:04 WBC (3.8-10.6) k/uL Plt Count (150-450) k/uL Neutrophils # (1.3-7.7) k/uL Lymphocytes # (1.0-4.8) k/uL PT (9.0-12.0) sec APTT (22.0-30.0) sec Fibrinogen 685 H (200-500) mg/dL D-Dimer 3.25 H (<0.60) mg/L FEU Sodium (137-145) mmol/L Potassium (3.5-5.1) mmol/L Chloride (98-107) mmol/L Carbon Dioxide (22-30) mmol/L BUN (9-20) mg/dL Creatinine (0.66-1.25) mg/dL Glucose (74-99) mg/dL POC Glucose (mg/dL) 141 H 145 H (75-99) mg/dL Calcium (8.4-10.2) mg/dL Magnesium (1.6-2.3) mg/dL Total Protein (6.3-8.2) g/dL Albumin (3.5-5.0) g/dL 07/29/16 07/29/16 07/29/16 Range/Units 04:37 04:37 04:37 WBC 15.5 H (3.8-10.6) k/uL Plt Count 128 L (150-450) k/uL Neutrophils # 13.8 H (1.3-7.7) k/uL Lymphocytes # 0.6 L (1.0-4.8) k/uL PT 13.3 H (9.0-12.0) sec APTT 31.0 H (22.0-30.0) sec Fibrinogen (200-500) mg/dL D-Dimer (<0.60) mg/L FEU Sodium 151 H (137-145) mmol/L Potassium 2.9 L* (3.5-5.1) mmol/L Chloride 123 H* (98-107) mmol/L Carbon Dioxide 16 L (22-30) mmol/L BUN 69 H (9-20) mg/dL Creatinine 3.31 H (0.66-1.25) mg/dL Glucose 172 H (74-99) mg/dL POC Glucose (mg/dL) (75-99) mg/dL Calcium 7.4 L (8.4-10.2) mg/dL Magnesium 2.6 H (1.6-2.3) mg/dL Total Protein 4.9 L (6.3-8.2) g/dL Albumin 2.1 L (3.5-5.0) g/dL 07/29/16 07/29/16 07/29/16 Range/Units 06:27 08:43 12:07 WBC (3.8-10.6) k/uL Plt Count (150-450) k/uL Neutrophils # (1.3-7.7) k/uL Lymphocytes # (1.0-4.8) k/uL PT (9.0-12.0) sec APTT (22.0-30.0) sec Fibrinogen (200-500) mg/dL D-Dimer (<0.60) mg/L FEU Sodium (137-145) mmol/L Potassium (3.5-5.1) mmol/L Chloride (98-107) mmol/L Carbon Dioxide (22-30) mmol/L BUN (9-20) mg/dL Creatinine (0.66-1.25) mg/dL Glucose (74-99) mg/dL POC Glucose (mg/dL) 155 H 219 H 161 H (75-99) mg/dL Calcium (8.4-10.2) mg/dL Magnesium (1.6-2.3) mg/dL Total Protein (6.3-8.2) g/dL Albumin (3.5-5.0) g/dL Microbiology - Last 24 Hours (Table) 07/26/16 19:30 Blood Culture - Preliminary Blood No Growth after 48 hours Assessment and Plan (1) Cholangitis Status: Acute (2) Acute cholecystitis Status: Acute (3) Sepsis Status: Acute Plan: Continue the IV antibiotics. We'll consult interventional radiology to evaluate the patient to see whether a cholecystostomy tube can be placed. His INR is improved today. Liver function tests are not significantly elevated. Further recommendations to follow.
[2016-07-29 13:42] LABS: Glucose,Whole Blood 158 mg/dL (75-99)
[2016-07-29] MEDS: FAT EMULSION 20% 250 ML IV SCH (14:00)
[2016-07-29 16:29] LABS: Glucose,Whole Blood 171 mg/dL (75-99)
--- NOTE | 2016-07-29 16:32 | P.PN ---
Subjective This is an 85-year-old male with a previous medical history significant for coronary artery disease status post PCI and stent placement, hypertension and hypertensive cardiovascular disease with left ventricular hypertrophy, hyperlipidemia, history of osteoarthritis, history of kidney stones , enlarged prostate, 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 Patient fell again last night about 9:30 she states he started to fall and she helped him to the floor slowly there was no injury. Patient was unable to get up so she laid a blanket on the floor in a pillow and let him sleep here overnight. This morning she called EMS to help him off the floor and wanted him brought to the hospital checked out and hopefully get her some assistance. he was found to have a significant urinary tract infection with sepsis, chest x-ray showed a tiny left lower lobe infiltrate with a left-sided pleural effusion with the nodules in the lung did not change from 2013. Patient was admitted to the hospital urine culture was done as well as blood culture he was placed on IV antibiotic in the form of Levaquin 750 mg IV piggyback every 24 hours subsequently the patient was discharged to [facility] for physical therapy and rehabilitation under Dr. Schofield service, and the patient was sent into the emergency department at [facility] yesterday because of severe sepsis with acute kidney injury and top of chronic kidney disease he was admitted to the intensive care unit, he was given IV fluid he was seen and evaluated by nephrology because of his acute kidney injury , he was started on IV antibiotic in the form of vancomycin he was taken off his Levaquin, unfortunately patient last hospitalization showed Pseudomonas that resistant to fluoroquinolones and the patient was maintained on Levaquin. 07/28: Sodium 148, potassium 3.4, carbon dioxide 16, BUN 17 creatinine 3.3. Patient will be changed to IV fluids of 0.45 normal saline. Blood sugars have been elevated for which Humalog 7030 increased to 18 units twice daily. Patient is currently nothing by mouth except ice chips. Dr. Islas on consult for her CAT scan findings of cholecystitis likely the source of sepsis. Patient is not a surgical candidate and family do not want him to go for surgery. Percutaneous drain is option but INR is elevated. INR today is at 5.7. Dr. Steve is following for acute kidney injury. Dr. Luis is following for intensive care management. Is also having ongoing diarrhea and currently on fecal management system. He is on low-dose levo fed. Patient has been on vancomycin and Zosyn. Flagyl has been added and vancomycin discontinued. 07/29: Patient still remains on Levophed to mics per minute, no surgeries to anticipated for the findings of cholecystitis noted as a source of sepsis, patient has right upper quadrant pain, left lower quadrant pain. Family has been aware off the surgical procedure which they have declined patient remains in ICU multiple specialties on consult Objective - Vital Signs Vital signs: Vital Signs Temp 99.8 F H 07/29/16 08:00 Pulse 95 07/29/16 16:00 Resp 25 H 07/29/16 16:00 BP 108/49 07/29/16 16:00 Pulse Ox 93 L 07/29/16 16:00 Intake & Output 07/28/16 07/29/16 07/29/16 18:59 06:59 18:59 Intake Total 6585.321 8876 1598.400 Output Total 505 555 760 Balance 1013.262 845 838.400 Weight 96.2 kg 100.8 kg 100.8 kg Intake: Intake, IV Titration 3712.784 5312 1598.400 Amount Albumin Human 25% 50 ml 50 In Empty Bag 1 bag @ 100 mls/hr IVPB ONCE ONE Rx#: [id number] Dextrose 5% in Water 1, 100 800 000 ml @ 100 mls/hr IV . Q10H [facility] Rx#:[id number] Fat Emulsion 20% 250 ml @ 42 21 mls/hr IV DAILY [facility] Rx#:[id number] Mvi, Adult No.4 with Vit 100 K 10 ml Trace (Conc-1Ml/ Dose) 1 ml In Amino Acid 4.25%-D10w+Lytes*E* 1,000 ml @ 50 mls/hr IV . [id number] [facility] Rx#:[id number] Norepinephrine 4 mg In 68.262 0 156.400 Sodium Chloride 0.9% 250 ml @ Titrate IV .Q0M [facility] Rx#:[id number] Phytonadione 5 mg In 50 Sodium Chloride 0.9% 50 ml @ 100 mls/hr IVPB ONCE STA Rx#:[id number] Piperacillin-Tazobactam 3 50 50 .375 gm In Dextrose/Water 1 50ml.bag @ 12.5 mls/hr IVPB Q12HR [facility] Rx#: [id number] Potassium Chloride 20 meq 100 300 Lidocaine 2% Inj 20 mg In Sodium Chloride 0.9% 100 ml @ 55.5 mls/hr IVPB Q2HR [facility] Rx#:[id number] Sodium Chloride 0.45% 1, 1150 1100 000 ml @ 100 mls/hr IV . Q10H [facility] Rx#:[id number] metroNIDAZOLE-NS PMX 500 200 100 100 mg In Saline 1 100ml.bag @ 100 mls/hr IVPB Q8HR [facility] Rx#:[id number] Output: Urine 405 555 460 Stool 100 300 Other: Voiding Method Indwelling Catheter Indwelling Catheter - Labs CBC & Chem 7: 07/29/16 04:37 07/29/16 12:28 Labs: Abnormal Lab Results - Last 24 Hours (Table) 07/28/16 07/29/16 07/29/16 Range/Units 18:55 00:04 04:37 WBC 15.5 H (3.8-10.6) k/uL Plt Count 128 L (150-450) k/uL Neutrophils # 13.8 H (1.3-7.7) k/uL Lymphocytes # 0.6 L (1.0-4.8) k/uL PT (9.0-12.0) sec APTT (22.0-30.0) sec Sodium (137-145) mmol/L Potassium (3.5-5.1) mmol/L Chloride (98-107) mmol/L Carbon Dioxide (22-30) mmol/L BUN (9-20) mg/dL Creatinine (0.66-1.25) mg/dL Glucose (74-99) mg/dL POC Glucose (mg/dL) 141 H 145 H (75-99) mg/dL Calcium (8.4-10.2) mg/dL Magnesium (1.6-2.3) mg/dL Total Protein (6.3-8.2) g/dL Albumin (3.5-5.0) g/dL 07/29/16 07/29/16 07/29/16 Range/Units 04:37 04:37 06:27 WBC (3.8-10.6) k/uL Plt Count (150-450) k/uL Neutrophils # (1.3-7.7) k/uL Lymphocytes # (1.0-4.8) k/uL PT 13.3 H (9.0-12.0) sec APTT 31.0 H (22.0-30.0) sec Sodium 151 H (137-145) mmol/L Potassium 2.9 L* (3.5-5.1) mmol/L Chloride 123 H* (98-107) mmol/L Carbon Dioxide 16 L (22-30) mmol/L BUN 69 H (9-20) mg/dL Creatinine 3.31 H (0.66-1.25) mg/dL Glucose 172 H (74-99) mg/dL POC Glucose (mg/dL) 155 H (75-99) mg/dL Calcium 7.4 L (8.4-10.2) mg/dL Magnesium 2.6 H (1.6-2.3) mg/dL Total Protein 4.9 L (6.3-8.2) g/dL Albumin 2.1 L (3.5-5.0) g/dL 07/29/16 07/29/16 07/29/16 Range/Units 08:43 12:07 12:28 WBC (3.8-10.6) k/uL Plt Count (150-450) k/uL Neutrophils # (1.3-7.7) k/uL Lymphocytes # (1.0-4.8) k/uL PT (9.0-12.0) sec APTT (22.0-30.0) sec Sodium 151 H (137-145) mmol/L Potassium 3.3 L (3.5-5.1) mmol/L Chloride 123 H* (98-107) mmol/L Carbon Dioxide 15 L (22-30) mmol/L BUN (9-20) mg/dL Creatinine (0.66-1.25) mg/dL Glucose (74-99) mg/dL POC Glucose (mg/dL) 219 H 161 H (75-99) mg/dL Calcium (8.4-10.2) mg/dL Magnesium (1.6-2.3) mg/dL Total Protein (6.3-8.2) g/dL Albumin (3.5-5.0) g/dL 07/29/16 Range/Units 13:34 WBC (3.8-10.6) k/uL Plt Count (150-450) k/uL Neutrophils # (1.3-7.7) k/uL Lymphocytes # (1.0-4.8) k/uL PT (9.0-12.0) sec APTT (22.0-30.0) sec Sodium (137-145) mmol/L Potassium (3.5-5.1) mmol/L Chloride (98-107) mmol/L Carbon Dioxide (22-30) mmol/L BUN (9-20) mg/dL Creatinine (0.66-1.25) mg/dL Glucose (74-99) mg/dL POC Glucose (mg/dL) 158 H (75-99) mg/dL Calcium (8.4-10.2) mg/dL Magnesium (1.6-2.3) mg/dL Total Protein (6.3-8.2) g/dL Albumin (3.5-5.0) g/dL Microbiology - Last 24 Hours (Table) 07/26/16 19:30 Blood Culture - Preliminary Blood No Growth after 48 hours Assessment and Plan Plan: 1. Acute cholecystitis and/or urinary tract infection with severe sepsis and septic shock with possible pseudomonas UTI. ICU, IV fluid resuscitation in the form of dextrose, Levophed, discontinue Vancomycin, start the patient on Zosyn 2.25 g IV piggyback every 8 hours, urine culture as well as blood culture 2, continue patient also on fluid resuscitation, monitor the patient the CMP, lactic acid, as well as WBC. Consult w Dr Islas appreciated. Dr. Luis is following for intensive care management. 2. Leukocytosis secondary to severe sepsis. Continue IV fluid resuscitation, continue IV antibiotic, repeat CBC in the next 24 hours. 3. 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 Continue IV fluid resuscitation, discontinue vancomycin, discontinue Levaquin, continue IV fluid resuscitation, continue Levophed, nephrology consultation, computed tomography scan of the abdomen and pelvis as above. 4. Severe abdominal pain with a prior history of abdominal aortic aneurysm back in 2013. We will obtain computed tomography scan of the abdomen and pelvis with oral contrast only. 5. Severe diarrhea. Check the stool for C. difficile, toxins a and B, check the stool culture, continue IV fluid resuscitation, discontinue vancomycin. 6. Anion gap metabolic acidosis as well as metabolic alkalosis. Continue IV fluid resuscitation, discontinue diuretics. 7. Lactic acidosis. Due to sepsis, continue IV fluid, continue IV antibiotic, repeat lactic acid in the next 24 hours. 8. CAD post-PCI. Continue aspirin 81 mg once every day, pravastatin 40, bedtime, hold off metoprolol for now. 9. Hypertension and hypertensive cardiovascular disease. Currently hypotensive we'll hold off antihypertensive medicine. 10. Enlarged prostate. Currently has a Burr catheter in place. 11. Parkinsonism. Currently on Sinemet 25/100 one tablet orally twice every day. 12. Diabetes mellitus type 2 with diabetic polyneuropathy. Continue patient on NovoLog Mix 70/30, continue patient on BGM 4 times every day. 13. Coagulopathy due to sepsis. 14. DVT prophylaxis. Heparin held due to coagulopathy. 15. GI prophylaxis. Protonix 40 mg IV push every 24 hours 16. Hypernatremia he would minimize IV saline infusion currently receiving IV fluids with D5W 16. No code.
[2016-07-29 18:10] LABS: Glucose,Whole Blood 203 mg/dL (75-99)
[2016-07-29 20:36] LABS: Glucose,Whole Blood 182 mg/dL (75-99)
[2016-07-30] MEDS: metroNIDAZOLE-NS PMX 500 MG in SALINE 1 100ML.BAG IVPB SCH ×3 (00:35→16:50)
[2016-07-30] MEDS: METOPROLOL TARTRATE 5 MG/5 ML VIAL IVP SCH ×3 (00:35→12:43)
[2016-07-30] MEDS: INSULIN LISPRO (humaLOG) 300 UNIT/3 ML VIAL SQ SCH ×6 (00:35→20:17)
[2016-07-30 00:37] LABS: Glucose,Whole Blood 171 mg/dL (75-99)
[2016-07-30 05:02] LABS: Basophils % (A) 0 %; CH 29.6; CHCM 31.3; Eosinophils % (A) 0 %; HCT 39.8 % (39.0-53.0); HDW 2.97; HGB 12.3 gm/dL (13.0-17.5); Hypochromasia Slight; Luc # (Auto) 0.33; Luc % (Auto) 2; Lymphocytes # (A) 0.6 k/uL (1.0-4.8); Lymphocytes % (A) 4 %; MCH 29.6 pg (25.0-35.0); MCHC 31.1 g/dL (31.0-37.0); MCV 95.4 fL (80.0-100.0); Mean Platelet Volume 9.4; Monocytes % (A) 7 %; Neutrophils # (A) 12.5 k/uL (1.3-7.7); Neutrophils % (A) 87 %; RBC 4.17 m/uL (4.30-5.90); RDW 15.2 % (11.5-15.5); WBC 14.4 k/uL (3.8-10.6); WBC (Perox) 14.58
[2016-07-30 05:17] LABS: Calcium 7.6 mg/dL (8.4-10.2); Magnesium 2.6 mg/dL (1.6-2.3); Phosphorous 2.6 mg/dL (2.5-4.5); Potassium 3.2 mmol/L (3.5-5.1); Total Bilirubin 0.5 mg/dL (0.2-1.3); Total Protein 4.4 g/dL (6.3-8.2)
[2016-07-30 05:48] LABS: INR 1.4 (<1.1); Prothrombin Time 13.5 sec (9.0-12.0)
[2016-07-30] MEDS ORDERED: 1: MVI, ADULT NO.4 WITH VIT K 10 ML, TRACE (CONC-1ML/DOSE) 1 ML in AMINO ACID 4.25%-D10W IV SCH ×3 (06:30)
[2016-07-30] MEDS: DEXTROSE 5% IN WATER 1,000 ML IV SCH ×3 (06:58→21:54)
[2016-07-30 07:01] LABS: Glucose,Whole Blood 168 mg/dL (75-99)
--- NOTE | 2016-07-30 07:27 | XR ---
EXAMINATION TYPE: XR chest 1V DATE OF EXAM: 07/30/2016 6:53 AM COMPARISON: 07/29/2016 HISTORY: 85 year-old male shortness of breath TECHNIQUE: Single frontal view of the chest is obtained. FINDINGS: Overall stable exam with low lung volumes and crowded vascular markings with heart at the upper limit s of normal in size. Continued pulmonary nodule at the left base and patchy opacity retrocardiac zayra on and blunting costophrenic angle on the left. IMPRESSION: Overall stable exam, hypoventilatory changes with patchy left basilar atelectasis or infiltrate with small effusion.
[2016-07-30] MEDS: POTASSIUM CHLORIDE 20 MEQ, LIDOCAINE 2% INJ 20 MG in SODIUM CHLORIDE 0.9% 100 ML IVPB SCH ×3 (07:49→12:01)
[2016-07-30 08:00] LABS: Glucose,Whole Blood 168 mg/dL (75-99)
[2016-07-30] MEDS: PIPERACILLIN-TAZOBACTAM 3.375 GM in DEXTROSE/WATER 1 50ML.BAG IVPB SCH ×2 (08:36→20:15)
[2016-07-30] MEDS: IPRATROPIUM-ALBUTEROL 3 ML NEB INHALATION SCH ×4 (08:36→19:46)
[2016-07-30] MEDS: PANTOPRAZOLE 40 MG/10 ML VIAL IV SCH (08:38)
[2016-07-30] MEDS: CARBIDOPA-LEVODOPA 25-100 MG 1 EACH TAB PO SCH ×2 (08:39→20:16)
[2016-07-30] MEDS: CYANOCOBALAMIN 500 MCG TAB PO SCH (08:41)
--- NOTE | 2016-07-30 08:45 | P.PN ---
Subjective This is a 85-year-old male seen in consultation because of acute kidney injury. His creatinine went up from a baseline of 1.2 on 07/10/2016 to -3.9 on admission. He came in with history of syncope and was thought to have had a stroke. But a few hours later he is able to move all his extremities and follows commands. He was given 5 L of fluid in the emergency room and over the last 24 hours his started to make urine. He is found to have gram-negative UTI, it has not been identified and no sensitivities have been reported although the culture was positive on 07/26/2016. He is on antibiotics. He continues to have abdominal discomfort pain. Is waiting for a stent in the common bile duct with a computed tomography scan this morning. He remains sleepy arousable follows commands mumbles answers and goes back to sleep. Urine output has remained adequate blood his sodium went up. Continues to have profuse diarrhea. He is on Ventimask oxygen He is on D5W water to improve his sodium. His also requiring large amounts of potassium because of GI losses. His urine culture now has Pseudomonas recurrence. He is on appropriate antibiotics His past history significant for UTI recently with Pseudomonas on 07/05/2016 3 weeks ago. A computed tomography scan showed a 5 cm aneurysm in 2013. There is a left ureteral stent in [address] CT. This is no been followed up to the best of my knowledge based on EMR. . His past history significant for coronary artery disease diabetes mellitus COPD prostatism history of acute DE heart catheterization with stent and as mentioned above left ureteral stent seen on computed tomography scan in 2013. Objective - Vital Signs Vital signs: Vital Signs Temp 98.5 F 07/30/16 04:00 Pulse 83 07/30/16 07:00 Resp 24 07/30/16 07:00 BP 117/58 07/30/16 07:00 Pulse Ox 94 L 07/30/16 07:00 Intake & Output 07/29/16 07/30/16 07/30/16 18:59 06:59 18:59 Intake Total 0934.181 1558.171 100 Output Total 1185 590 60 Balance 063.324 9674.171 40 Weight 100.8 kg 103.1 kg Intake: Intake, IV Titration 4918.719 1926.171 100 Amount Albumin Human 25% 50 ml 50 In Empty Bag 1 bag @ 100 mls/hr IVPB ONCE ONE Rx#: [id number] Dextrose 5% in Water 1, 800 600 50 000 ml @ 100 mls/hr IV . Q10H [facility] Rx#:[id number] Fat Emulsion 20% 250 ml @ 84 168 21 mls/hr IV DAILY [facility] Rx#:[id number] Mvi, Adult No.4 with Vit 200 600 50 K 10 ml Trace (Conc-1Ml/ Dose) 1 ml In Amino Acid 4.25%-D10w+Lytes*E* 1,000 ml @ 50 mls/hr IV . [id number] [facility] Rx#:[id number] Norepinephrine 4 mg In 156.400 98.171 Sodium Chloride 0.9% 250 ml @ Titrate IV .Q0M [facility] Rx#:[id number] Piperacillin-Tazobactam 3 50 50 .375 gm In Dextrose/Water 1 50ml.bag @ 12.5 mls/hr IVPB Q12HR [facility] Rx#: [id number] Potassium Chloride 20 meq 100 Lidocaine 2% Inj 20 mg In Sodium Chloride 0.9% 100 ml @ 55.5 mls/hr IVPB Q2H [facility] Rx#:[id number] Potassium Chloride 20 meq 300 Lidocaine 2% Inj 20 mg In Sodium Chloride 0.9% 100 ml @ 55.5 mls/hr IVPB Q2HR [facility] Rx#:[id number] metroNIDAZOLE-NS PMX 500 100 100 mg In Saline 1 100ml.bag @ 100 mls/hr IVPB Q8HR [facility] Rx#:[id number] Output: Urine 585 590 60 Stool 600 Other: Voiding Method Indwelling Catheter Indwelling Catheter # Bowel Movements 400 On examination he is sleepy arousable follows commands mom's and goes back to sleep. Is on O2 via Ventimask No JVP noted neck is supple no facial asymmetry Lungs are significant for coarse crackle bilaterally Good air entry otherwise no dullness percussion A chest x-ray shows bilateral infiltrates and possible atelectasis bilaterally Heart sounds are unremarkable no murmur rub gallop. His monitor shows normal sinus rhythm but multiple PACs. Abdomen remains soft but tender bowel sounds are diminished Extremity exam was no edema Neurological he moves all his extreme it is. - Labs CBC & Chem 7: 07/30/16 04:35 07/30/16 04:35 Labs: Abnormal Lab Results - Last 24 Hours (Table) 07/29/16 07/29/16 07/29/16 Range/Units 08:43 12:07 12:28 WBC (3.8-10.6) k/uL RBC (4.30-5.90) m/uL Hgb (13.0-17.5) gm/dL Plt Count (150-450) k/uL Neutrophils # (1.3-7.7) k/uL Lymphocytes # (1.0-4.8) k/uL PT (9.0-12.0) sec Sodium 151 H (137-145) mmol/L Potassium 3.3 L (3.5-5.1) mmol/L Chloride 123 H* (98-107) mmol/L Carbon Dioxide 15 L (22-30) mmol/L BUN (9-20) mg/dL Creatinine (0.66-1.25) mg/dL Glucose (74-99) mg/dL POC Glucose (mg/dL) 219 H 161 H (75-99) mg/dL Calcium (8.4-10.2) mg/dL Magnesium (1.6-2.3) mg/dL Total Protein (6.3-8.2) g/dL Albumin (3.5-5.0) g/dL 07/29/16 07/29/16 07/29/16 Range/Units 13:34 16:26 18:03 WBC (3.8-10.6) k/uL RBC (4.30-5.90) m/uL Hgb (13.0-17.5) gm/dL Plt Count (150-450) k/uL Neutrophils # (1.3-7.7) k/uL Lymphocytes # (1.0-4.8) k/uL PT (9.0-12.0) sec Sodium (137-145) mmol/L Potassium (3.5-5.1) mmol/L Chloride (98-107) mmol/L Carbon Dioxide (22-30) mmol/L BUN (9-20) mg/dL Creatinine (0.66-1.25) mg/dL Glucose (74-99) mg/dL POC Glucose (mg/dL) 158 H 171 H 203 H (75-99) mg/dL Calcium (8.4-10.2) mg/dL Magnesium (1.6-2.3) mg/dL Total Protein (6.3-8.2) g/dL Albumin (3.5-5.0) g/dL 07/29/16 07/30/16 07/30/16 Range/Units 20:34 00:34 04:35 WBC (3.8-10.6) k/uL RBC (4.30-5.90) m/uL Hgb (13.0-17.5) gm/dL Plt Count (150-450) k/uL Neutrophils # (1.3-7.7) k/uL Lymphocytes # (1.0-4.8) k/uL PT 13.5 H (9.0-12.0) sec Sodium (137-145) mmol/L Potassium (3.5-5.1) mmol/L Chloride (98-107) mmol/L Carbon Dioxide (22-30) mmol/L BUN (9-20) mg/dL Creatinine (0.66-1.25) mg/dL Glucose (74-99) mg/dL POC Glucose (mg/dL) 182 H 171 H (75-99) mg/dL Calcium (8.4-10.2) mg/dL Magnesium (1.6-2.3) mg/dL Total Protein (6.3-8.2) g/dL Albumin (3.5-5.0) g/dL 07/30/16 07/30/16 07/30/16 Range/Units 04:35 04:35 06:52 WBC 14.4 H (3.8-10.6) k/uL RBC 4.17 L (4.30-5.90) m/uL Hgb 12.3 L (13.0-17.5) gm/dL Plt Count 122 L (150-450) k/uL Neutrophils # 12.5 H (1.3-7.7) k/uL Lymphocytes # 0.6 L (1.0-4.8) k/uL PT (9.0-12.0) sec Sodium 154 H (137-145) mmol/L Potassium 3.2 L (3.5-5.1) mmol/L Chloride 127 H* (98-107) mmol/L Carbon Dioxide 15 L (22-30) mmol/L BUN 68 H (9-20) mg/dL Creatinine 2.80 H (0.66-1.25) mg/dL Glucose 174 H (74-99) mg/dL POC Glucose (mg/dL) 168 H (75-99) mg/dL Calcium 7.6 L (8.4-10.2) mg/dL Magnesium 2.6 H (1.6-2.3) mg/dL Total Protein 4.4 L (6.3-8.2) g/dL Albumin 1.9 L (3.5-5.0) g/dL 07/30/16 Range/Units 07:59 WBC (3.8-10.6) k/uL RBC (4.30-5.90) m/uL Hgb (13.0-17.5) gm/dL Plt Count (150-450) k/uL Neutrophils # (1.3-7.7) k/uL Lymphocytes # (1.0-4.8) k/uL PT (9.0-12.0) sec Sodium (137-145) mmol/L Potassium (3.5-5.1) mmol/L Chloride (98-107) mmol/L Carbon Dioxide (22-30) mmol/L BUN (9-20) mg/dL Creatinine (0.66-1.25) mg/dL Glucose (74-99) mg/dL POC Glucose (mg/dL) 168 H (75-99) mg/dL Calcium (8.4-10.2) mg/dL Magnesium (1.6-2.3) mg/dL Total Protein (6.3-8.2) g/dL Albumin (3.5-5.0) g/dL Microbiology - Last 24 Hours (Table) 07/26/16 19:30 Blood Culture - Preliminary Blood No Growth after 72 hours 07/29/16 10:43 Stool Culture - Preliminary Stool Assessment and Plan Plan: Impression. 1. Acute kidney injury with creatinine peaking at 3.9, urine output is improved , 11 75 mL for the last 24 hours, creatinine is continuously and slowly improving is down from peak of 3.9-3.3 or the last 3 days.Etiology is ATN and prerenal from hypotension. 2. Gram-negative UTI, recurrence of Pseudomonas which she had before currently on Zosyn appropriately. Previously He had Pseudomonas UTI dated 07/05/20 16. Previous computed tomography scan 2013 showed a left ureteral stent. None is seen on the computed tomography scan done yesterday to 07/27/2016 3. Mild CKD with a creatinine of 1.2 dated 07/10/2016. 4. Abdominal aortic aneurysm 5 cm based on computed tomography scan 2013, computed tomography scan done 07/27/2016 yesterday shows a 4.5 cm abdominal aortic aneurysm with the stent 5.A computed tomography scan of the abdomen done 07/27/2016 shows dilated bile duct and gallstones. 6. CT shows colitis with thickened colonic wall, 7. Computed tomography scan shows bilateral lower lobe infiltrates, 8 mm left upper lobe nodule. 8. 3.9 cm hyperdense lesion in the left kidney likely cysts, 9. 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 10. Additionally bladder wall is thickened, 11. Computed tomography scan showed prostate is enlarged. 12. Mild gap acidosis with bicarb of 16 stable, anion gap of an anion gap of 12. Etiology is diarrhea and acute kidney injury. 14. Hypotension likely from sepsis troponin is 0.13. Blood pressure is better controlled, currently on small doses of levo fed 15. Hypokalemia scan to GI losses with diarrhea. On replacement 16. Hypernatremia with a sodium worsening this morning 08/16/1955 from 151 secondary to decreased free water intake and excessive GI losses and and acute kidney injury that is failing to osmolar regulate. Patient was on D5W at 50 mL an hour and has been increased 200 mL an hour this morning Recommendation. Maintain IV D5W 100 and hour. He is on TPN IV since yesterday. Discussed with pharmacy and will maintain the current TPN Potassium is being replaced separate from the TPN which has 30 mEq per liter and is getting 2 bags of fed. Change IV fluids to D5W because of the hypernatremia. We will redo a serum sodium at 1800 hrs. today and if necessary increase free water.
[2016-07-30] MEDS: INSULN ASP PRT/INSULIN ASPART 100 UNIT/ML 10 ML VIAL SQ SCH ×2 (09:01→20:15)
[2016-07-30] MEDS ORDERED: HYDROmorphone 1 MG/ML 1 ML SYRINGE ONE (09:49)
[2016-07-30] MEDS ORDERED: HYDROmorphone 1 MG/ML 1 ML SYRINGE IVP STA (09:51)
[2016-07-30] MEDS: FAT EMULSION 20% 250 ML IV SCH (11:12)
[2016-07-30] MEDS: 1: MVI, ADULT NO.4 WITH VIT K 10 ML, TRACE (CONC-1ML/DOSE) 1 ML, POTASSIUM ACETATE 10 ME IV SCH ×7 (11:12)
[2016-07-30 11:16] LABS: Glucose,Whole Blood 145 mg/dL (75-99)
--- NOTE | 2016-07-30 12:00 | P.PN ---
Subjective Principal diagnosis: Acute cholecystitis with cholangitis and sepsis Nursing reports the patient was much more lethargic this morning. Still requiring Levofed. He wasn't answering questions well. He was given a small amount of Dilaudid for his cholecystostomy tube placement. Objective - Vital Signs Vital signs: Vital Signs Temp 98.8 F 07/30/16 08:43 Pulse 83 07/30/16 11:54 Resp 20 07/30/16 11:00 BP 107/54 07/30/16 11:00 Pulse Ox 94 L 07/30/16 11:00 Intake & Output 07/29/16 07/30/16 07/30/16 18:59 06:59 18:59 Intake Total 5261.624 1042.171 950 Output Total 1185 590 240 Balance 088.005 2960.171 710 Weight 100.8 kg 103.1 kg Intake: Intake, IV Titration 8976.667 2503.171 950 Amount Albumin Human 25% 50 ml 50 In Empty Bag 1 bag @ 100 mls/hr IVPB ONCE ONE Rx#: [id number] Dextrose 5% in Water 1, 800 600 450 000 ml @ 100 mls/hr IV . Q10H LV Rx#:[id number] Fat Emulsion 20% 250 ml @ 84 168 21 mls/hr IV DAILY LV Rx#:[id number] Mvi, Adult No.4 with Vit 200 600 250 K 10 ml Trace (Conc-1Ml/ Dose) 1 ml In Amino Acid 4.25%-D10w+Lytes*E* 1,000 ml @ 50 mls/hr IV . [id number] LV Rx#:[id number] Norepinephrine 4 mg In 156.400 98.171 Sodium Chloride 0.9% 250 ml @ Titrate IV .Q0M LV Rx#:[id number] Piperacillin-Tazobactam 3 50 50 50 .375 gm In Dextrose/Water 1 50ml.bag @ 12.5 mls/hr IVPB Q12HR LV Rx#: [id number] Potassium Chloride 20 meq 100 Lidocaine 2% Inj 20 mg In Sodium Chloride 0.9% 100 ml @ 55.5 mls/hr IVPB Q2H LV Rx#:[id number] Potassium Chloride 20 meq 300 Lidocaine 2% Inj 20 mg In Sodium Chloride 0.9% 100 ml @ 55.5 mls/hr IVPB Q2HR LV Rx#:[id number] Potassium Chloride 20 meq 100 Lidocaine 2% Inj 20 mg In Sodium Chloride 0.9% 100 ml @ 55.5 mls/hr IVPB Q2HR LV Rx#:[id number] metroNIDAZOLE-NS PMX 500 100 100 100 mg In Saline 1 100ml.bag @ 100 mls/hr IVPB Q8HR LV Rx#:[id number] Output: Urine 585 590 240 Stool 600 Other: Voiding Method Indwelling Catheter Indwelling Catheter # Bowel Movements 400 - Constitutional Constitutional Comment(s): Appears ill, responds minimally to tactile stimuli. Not answering questions - Respiratory Respiratory: bilateral: diminished - Gastrointestinal Gastrointestinal Comment(s): No apparent tenderness however the patient is not responding well. General gastrointestinal: Present: decreased bowel sounds, soft Localized gastrointestinal: surgical scar: RUQ (A drain is in place draining bile. No evidence of purulence in the drainage.) - Labs CBC & Chem 7: 07/30/16 04:35 07/30/16 04:35 Labs: Abnormal Lab Results - Last 24 Hours (Table) 07/29/16 07/29/16 07/29/16 Range/Units 12:07 12:28 13:34 WBC (3.8-10.6) k/uL RBC (4.30-5.90) m/uL Hgb (13.0-17.5) gm/dL Plt Count (150-450) k/uL Neutrophils # (1.3-7.7) k/uL Lymphocytes # (1.0-4.8) k/uL PT (9.0-12.0) sec Sodium 151 H (137-145) mmol/L Potassium 3.3 L (3.5-5.1) mmol/L Chloride 123 H* (98-107) mmol/L Carbon Dioxide 15 L (22-30) mmol/L BUN (9-20) mg/dL Creatinine (0.66-1.25) mg/dL Glucose (74-99) mg/dL POC Glucose (mg/dL) 161 H 158 H (75-99) mg/dL Calcium (8.4-10.2) mg/dL Magnesium (1.6-2.3) mg/dL Total Protein (6.3-8.2) g/dL Albumin (3.5-5.0) g/dL 07/29/16 07/29/16 07/29/16 Range/Units 16:26 18:03 20:34 WBC (3.8-10.6) k/uL RBC (4.30-5.90) m/uL Hgb (13.0-17.5) gm/dL Plt Count (150-450) k/uL Neutrophils # (1.3-7.7) k/uL Lymphocytes # (1.0-4.8) k/uL PT (9.0-12.0) sec Sodium (137-145) mmol/L Potassium (3.5-5.1) mmol/L Chloride (98-107) mmol/L Carbon Dioxide (22-30) mmol/L BUN (9-20) mg/dL Creatinine (0.66-1.25) mg/dL Glucose (74-99) mg/dL POC Glucose (mg/dL) 171 H 203 H 182 H (75-99) mg/dL Calcium (8.4-10.2) mg/dL Magnesium (1.6-2.3) mg/dL Total Protein (6.3-8.2) g/dL Albumin (3.5-5.0) g/dL 07/30/16 07/30/16 07/30/16 Range/Units 00:34 04:35 04:35 WBC 14.4 H (3.8-10.6) k/uL RBC 4.17 L (4.30-5.90) m/uL Hgb 12.3 L (13.0-17.5) gm/dL Plt Count 122 L (150-450) k/uL Neutrophils # 12.5 H (1.3-7.7) k/uL Lymphocytes # 0.6 L (1.0-4.8) k/uL PT 13.5 H (9.0-12.0) sec Sodium (137-145) mmol/L Potassium (3.5-5.1) mmol/L Chloride (98-107) mmol/L Carbon Dioxide (22-30) mmol/L BUN (9-20) mg/dL Creatinine (0.66-1.25) mg/dL Glucose (74-99) mg/dL POC Glucose (mg/dL) 171 H (75-99) mg/dL Calcium (8.4-10.2) mg/dL Magnesium (1.6-2.3) mg/dL Total Protein (6.3-8.2) g/dL Albumin (3.5-5.0) g/dL 07/30/16 07/30/16 07/30/16 Range/Units 04:35 06:52 07:59 WBC (3.8-10.6) k/uL RBC (4.30-5.90) m/uL Hgb (13.0-17.5) gm/dL Plt Count (150-450) k/uL Neutrophils # (1.3-7.7) k/uL Lymphocytes # (1.0-4.8) k/uL PT (9.0-12.0) sec Sodium 154 H (137-145) mmol/L Potassium 3.2 L (3.5-5.1) mmol/L Chloride 127 H* (98-107) mmol/L Carbon Dioxide 15 L (22-30) mmol/L BUN 68 H (9-20) mg/dL Creatinine 2.80 H (0.66-1.25) mg/dL Glucose 174 H (74-99) mg/dL POC Glucose (mg/dL) 168 H 168 H (75-99) mg/dL Calcium 7.6 L (8.4-10.2) mg/dL Magnesium 2.6 H (1.6-2.3) mg/dL Total Protein 4.4 L (6.3-8.2) g/dL Albumin 1.9 L (3.5-5.0) g/dL 07/30/16 Range/Units 11:14 WBC (3.8-10.6) k/uL RBC (4.30-5.90) m/uL Hgb (13.0-17.5) gm/dL Plt Count (150-450) k/uL Neutrophils # (1.3-7.7) k/uL Lymphocytes # (1.0-4.8) k/uL PT (9.0-12.0) sec Sodium (137-145) mmol/L Potassium (3.5-5.1) mmol/L Chloride (98-107) mmol/L Carbon Dioxide (22-30) mmol/L BUN (9-20) mg/dL Creatinine (0.66-1.25) mg/dL Glucose (74-99) mg/dL POC Glucose (mg/dL) 145 H (75-99) mg/dL Calcium (8.4-10.2) mg/dL Magnesium (1.6-2.3) mg/dL Total Protein (6.3-8.2) g/dL Albumin (3.5-5.0) g/dL Microbiology - Last 24 Hours (Table) 07/26/16 19:30 Blood Culture - Preliminary Blood No Growth after 72 hours 07/29/16 10:43 Stool Culture - Preliminary Stool Assessment and Plan (1) Cholangitis Status: Acute (2) Acute cholecystitis Status: Acute (3) Sepsis Status: Acute Plan: Cultures being sent from the bile. Continue IV antibiotics and supportive care. Currently nonsurgical. Prognosis is very guarded.
[2016-07-30 16:49] LABS: Glucose,Whole Blood 192 mg/dL (75-99)
--- NOTE | 2016-07-30 16:52 | P.PN ---
Subjective Principal diagnosis: Sepsis Patient seen and examined in the ICU with nursing staff at bedside. Patient's urine output has increased to 40-50 mL per hour. The patient's mental status waxes and wanes. Sometimes he will not is hard to try to answer questions. He is extremely weak. He is currently off of Levophed. He did have a percutaneous drain placed. The patient continues to have liquid stools. Objective - Vital Signs Vital signs: Vital Signs Temp 99.6 F 07/30/16 16:00 Pulse 78 07/30/16 16:00 Resp 26 H 07/30/16 16:00 BP 111/47 07/30/16 16:00 Pulse Ox 94 L 07/30/16 16:00 Intake & Output 07/29/16 07/30/16 07/30/16 18:59 06:59 18:59 Intake Total 1309.969 2331.171 1958.056 Output Total 1185 590 630 Balance 560.979 5105.171 1328.056 Weight 100.8 kg 103.1 kg 103.1 kg Intake: Intake, IV Titration 1186.680 7830.171 1958.056 Amount Albumin Human 25% 50 ml 50 In Empty Bag 1 bag @ 100 mls/hr IVPB ONCE ONE Rx#: [id number] Dextrose 5% in Water 1, 800 600 850 000 ml @ 100 mls/hr IV . Q10H LV Rx#:[id number] Fat Emulsion 20% 250 ml @ 84 168 105 21 mls/hr IV DAILY LV Rx#:[id number] Mvi, Adult No.4 with Vit 200 600 250 K 10 ml Trace (Conc-1Ml/ Dose) 1 ml In Amino Acid 4.25%-D10w+Lytes*E* 1,000 ml @ 50 mls/hr IV . [id number] LV Rx#:[id number] Norepinephrine 4 mg In 156.400 98.171 71.056 Sodium Chloride 0.9% 250 ml @ Titrate IV .Q0M LV Rx#:[id number] Piperacillin-Tazobactam 3 50 50 50 .375 gm In Dextrose/Water 1 50ml.bag @ 12.5 mls/hr IVPB Q12HR LV Rx#: [id number] Potassium Acetate 10 meq 332 Magnesium Sulfate 5 meq Potassium Phosphate 15 mmol Calcium Gluconate 1, 000 mg In Amino Acid 4.25 %-D10w 1,000 ml @ 83 mls/ hr IV .BY DURATION LV Rx #:[id number] Potassium Chloride 20 meq 100 Lidocaine 2% Inj 20 mg In Sodium Chloride 0.9% 100 ml @ 55.5 mls/hr IVPB Q2H LV Rx#:[id number] Potassium Chloride 20 meq 300 Lidocaine 2% Inj 20 mg In Sodium Chloride 0.9% 100 ml @ 55.5 mls/hr IVPB Q2HR LV Rx#:[id number] Potassium Chloride 20 meq 200 Lidocaine 2% Inj 20 mg In Sodium Chloride 0.9% 100 ml @ 55.5 mls/hr IVPB Q2HR LV Rx#:[id number] metroNIDAZOLE-NS PMX 500 100 100 100 mg In Saline 1 100ml.bag @ 100 mls/hr IVPB Q8HR [facility] Rx#:[id number] Output: Drainage 200 Right side, percuaneous 200 biliary drain Urine 585 590 430 Stool 600 Other: Voiding Method Indwelling Catheter Indwelling Catheter Indwelling Catheter # Bowel Movements 400 - Exam Gen.: Patient opens his eyes to verbal stimuli, he will answer questions but is slow to respond Cardiovascular: Regular rate and rhythm, S1/S2 Lungs: Diminished breath sounds at the bilateral bases Abdomen: Soft nontender nondistended positive bowel sounds Extremities: No edema - Labs CBC & Chem 7: 07/30/16 04:35 07/30/16 14:45 Labs: Abnormal Lab Results - Last 24 Hours (Table) 07/29/16 07/29/16 07/30/16 Range/Units 18:03 20:34 00:34 WBC (3.8-10.6) k/uL RBC (4.30-5.90) m/uL Hgb (13.0-17.5) gm/dL Plt Count (150-450) k/uL Neutrophils # (1.3-7.7) k/uL Lymphocytes # (1.0-4.8) k/uL PT (9.0-12.0) sec Sodium (137-145) mmol/L Potassium (3.5-5.1) mmol/L Chloride (98-107) mmol/L Carbon Dioxide (22-30) mmol/L BUN (9-20) mg/dL Creatinine (0.66-1.25) mg/dL Glucose (74-99) mg/dL POC Glucose (mg/dL) 203 H 182 H 171 H (75-99) mg/dL Calcium (8.4-10.2) mg/dL Magnesium (1.6-2.3) mg/dL Total Protein (6.3-8.2) g/dL Albumin (3.5-5.0) g/dL 07/30/16 07/30/16 07/30/16 Range/Units 04:35 04:35 04:35 WBC 14.4 H (3.8-10.6) k/uL RBC 4.17 L (4.30-5.90) m/uL Hgb 12.3 L (13.0-17.5) gm/dL Plt Count 122 L (150-450) k/uL Neutrophils # 12.5 H (1.3-7.7) k/uL Lymphocytes # 0.6 L (1.0-4.8) k/uL PT 13.5 H (9.0-12.0) sec Sodium 154 H (137-145) mmol/L Potassium 3.2 L (3.5-5.1) mmol/L Chloride 127 H* (98-107) mmol/L Carbon Dioxide 15 L (22-30) mmol/L BUN 68 H (9-20) mg/dL Creatinine 2.80 H (0.66-1.25) mg/dL Glucose 174 H (74-99) mg/dL POC Glucose (mg/dL) (75-99) mg/dL Calcium 7.6 L (8.4-10.2) mg/dL Magnesium 2.6 H (1.6-2.3) mg/dL Total Protein 4.4 L (6.3-8.2) g/dL Albumin 1.9 L (3.5-5.0) g/dL 07/30/16 07/30/16 07/30/16 Range/Units 06:52 07:59 11:14 WBC (3.8-10.6) k/uL RBC (4.30-5.90) m/uL Hgb (13.0-17.5) gm/dL Plt Count (150-450) k/uL Neutrophils # (1.3-7.7) k/uL Lymphocytes # (1.0-4.8) k/uL PT (9.0-12.0) sec Sodium (137-145) mmol/L Potassium (3.5-5.1) mmol/L Chloride (98-107) mmol/L Carbon Dioxide (22-30) mmol/L BUN (9-20) mg/dL Creatinine (0.66-1.25) mg/dL Glucose (74-99) mg/dL POC Glucose (mg/dL) 168 H 168 H 145 H (75-99) mg/dL Calcium (8.4-10.2) mg/dL Magnesium (1.6-2.3) mg/dL Total Protein (6.3-8.2) g/dL Albumin (3.5-5.0) g/dL Microbiology - Last 24 Hours (Table) 07/26/16 19:30 Blood Culture - Preliminary Blood No Growth after 72 hours 07/29/16 10:43 Stool Culture - Preliminary Stool Assessment and Plan Plan: Septic shock Urinary tract infection, recurrent pseudomonas infection Acute kidney injury, improving Mild anion gap metabolic acidosis Gastroenteritis Cholecystitis, s/p perc drain Hypernatremia/hyperchloremia Lactic acidosis Mild thrombocytosis Coagulopathy of unknown significance Leukocytosis Severe abdominal pain, history of abdominal aortic aneurysm Diarrhea History of coronary artery disease History of hypertension History of Parkinson's Diabetes mellitus type 2 Severe protein calorie malnutrition 8 mm WENDI pulmonary nodule O2 to maintain saturation greater than or equal to 88% Levophed to maintain map greater than 65 Antibiotics: Zosyn, Flagyl DVT prophylaxis with SCDs due to elevated INR GI prophylaxis with Protonix IV fluids to D5W Check stool for culture and ova and parasites pending PICC line for TPN Discontinue Metoprolol Speech for swallow eval Infectious disease, nephrology consult Stool for C. diff is negative Bronchodilators Monitor urine output Chest PT, frequent suctioning, percussion Monitor labs Patient is currently not a surgical candidate, family does not want surgical intervention, continue medical therapy. Patient's son Denny is updated via phone per family request.
[2016-07-30 20:17] LABS: Glucose,Whole Blood 230 mg/dL (75-99)
--- NOTE | 2016-07-30 20:19 | P.PN ---
Subjective Principal diagnosis: Sepsis with SIRS, acute cholecystitis, cholangitis, hemodynamic instability, Pseudomonas UTI This is an 85-year-old male with a previous medical history significant for coronary artery disease status post PCI and stent placement, hypertension and hypertensive cardiovascular disease with left ventricular hypertrophy, hyperlipidemia, history of osteoarthritis, history of kidney stones , enlarged prostate, 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 Patient fell again last night about 9:30 she states he started to fall and she helped him to the floor slowly there was no injury. Patient was unable to get up so she laid a blanket on the floor in a pillow and let him sleep here overnight. This morning she called EMS to help him off the floor and wanted him brought to the hospital checked out and hopefully get her some assistance. he was found to have a significant urinary tract infection with sepsis, chest x-ray showed a tiny left lower lobe infiltrate with a left-sided pleural effusion with the nodules in the lung did not change from 2013. Patient was admitted to the hospital urine culture was done as well as blood culture he was placed on IV antibiotic in the form of Levaquin 750 mg IV piggyback every 24 hours subsequently the patient was discharged to [facility] for physical therapy and rehabilitation under Dr. Schofield service, and the patient was sent into the emergency department at [facility] yesterday because of severe sepsis with acute kidney injury and top of chronic kidney disease he was admitted to the intensive care unit, he was given IV fluid he was seen and evaluated by nephrology because of his acute kidney injury , he was started on IV antibiotic in the form of vancomycin he was taken off his Levaquin, unfortunately patient last hospitalization showed Pseudomonas that resistant to fluoroquinolones and the patient was maintained on Levaquin. 07/28: Sodium 148, potassium 3.4, carbon dioxide 16, BUN 17 creatinine 3.3. Patient will be changed to IV fluids of 0.45 normal saline. Blood sugars have been elevated for which Humalog 7030 increased to 18 units twice daily. Patient is currently nothing by mouth except ice chips. Dr. Islas on consult for her CAT scan findings of cholecystitis likely the source of sepsis. Patient is not a surgical candidate and family do not want him to go for surgery. Percutaneous drain is option but INR is elevated. INR today is at 5.7. Dr. Steve is following for acute kidney injury. Dr. Luis is following for intensive care management. Is also having ongoing diarrhea and currently on fecal management system. He is on low-dose levo fed. Patient has been on vancomycin and Zosyn. Flagyl has been added and vancomycin discontinued. 07/29: Patient still remains on Levophed to mics per minute, no surgeries to anticipated for the findings of cholecystitis noted as a source of sepsis, patient has right upper quadrant pain, left lower quadrant pain. Family has been aware off the surgical procedure which they have declined patient remains in ICU multiple specialties on consult 07/30: Patient underwent percutaneous drainage off the gallbladder with cholecystotomy, cultures were sent from bile, patient's more obtunded today leukocytoses and hypertension hypernatremia persist, coagulopathy has been reversed using vitamin K and spontaneous coagulopathy he has improved.,, Albumin extremely low at 1.9 closely monitored in ICU Objective - Vital Signs Vital signs: Vital Signs Temp 99.6 F 07/30/16 16:00 Pulse 71 07/30/16 19:00 Resp 25 H 07/30/16 19:00 BP 107/47 07/30/16 19:00 Pulse Ox 97 07/30/16 19:00 Intake & Output 07/30/16 07/30/16 07/31/16 06:59 18:59 06:59 Intake Total 9617.634 3055.056 204 Output Total 590 1205 40 Balance 0675.913 9875.056 164 Weight 103.1 kg 103.1 kg Intake: Intake, IV Titration 6702.337 9687.056 204 Amount Dextrose 5% in Water 1, 600 1150 100 000 ml @ 100 mls/hr IV . Q10H LV Rx#:[id number] Fat Emulsion 20% 250 ml @ 168 168 21 21 mls/hr IV DAILY LV Rx#:[id number] Mvi, Adult No.4 with Vit 600 250 K 10 ml Trace (Conc-1Ml/ Dose) 1 ml In Amino Acid 4.25%-D10w+Lytes*E* 1,000 ml @ 50 mls/hr IV . [id number] LV Rx#:[id number] Norepinephrine 4 mg In 98.171 71.056 Sodium Chloride 0.9% 250 ml @ Titrate IV .Q0M [facility] Rx#:[id number] Piperacillin-Tazobactam 3 50 50 .375 gm In Dextrose/Water 1 50ml.bag @ 12.5 mls/hr IVPB Q12HR LV Rx#: [id number] Potassium Acetate 10 meq 581 83 Magnesium Sulfate 5 meq Potassium Phosphate 15 mmol Calcium Gluconate 1, 000 mg In Amino Acid 4.25 %-D10w 1,000 ml @ 83 mls/ hr IV .BY DURATION LV Rx #:[id number] Potassium Chloride 20 meq 200 Lidocaine 2% Inj 20 mg In Sodium Chloride 0.9% 100 ml @ 55.5 mls/hr IVPB Q2HR LV Rx#:[id number] metroNIDAZOLE-NS PMX 500 100 100 mg In Saline 1 100ml.bag @ 100 mls/hr IVPB Q8HR LV Rx#:[id number] Output: Drainage 200 Right side, percuaneous 200 biliary drain Urine 590 705 40 Stool 300 Other: Voiding Method Indwelling Catheter Indwelling Catheter # Bowel Movements 400 - Constitutional General appearance: Present: average body habitus - EENT Eyes: Present: anicteric sclerae, EOMI, PERRLA, dentition normal, normal appearance ENT: Present: hard of hearing, normal oropharynx - Respiratory Respiratory: bilateral: CTA, diminished, negative: dullness, rales, rhonchi, wheezing, prolonged expiration - Cardiovascular Rhythm: regular Heart sounds: normal: S1, S2 - Gastrointestinal General gastrointestinal: Present: distended, normal bowel sounds, soft - Integumentary Integumentary: Present: decreased turgor, normal, normal turgor - Additional findings Additional findings: obtundend withraws on painful stimuli - Labs CBC & Chem 7: 07/30/16 04:35 07/30/16 14:45 Labs: Abnormal Lab Results - Last 24 Hours (Table) 07/29/16 07/30/16 07/30/16 Range/Units 20:34 00:34 04:35 WBC (3.8-10.6) k/uL RBC (4.30-5.90) m/uL Hgb (13.0-17.5) gm/dL Plt Count (150-450) k/uL Neutrophils # (1.3-7.7) k/uL Lymphocytes # (1.0-4.8) k/uL PT 13.5 H (9.0-12.0) sec Sodium (137-145) mmol/L Potassium (3.5-5.1) mmol/L Chloride (98-107) mmol/L Carbon Dioxide (22-30) mmol/L BUN (9-20) mg/dL Creatinine (0.66-1.25) mg/dL Glucose (74-99) mg/dL POC Glucose (mg/dL) 182 H 171 H (75-99) mg/dL Calcium (8.4-10.2) mg/dL Magnesium (1.6-2.3) mg/dL Total Protein (6.3-8.2) g/dL Albumin (3.5-5.0) g/dL 07/30/16 07/30/16 07/30/16 Range/Units 04:35 04:35 06:52 WBC 14.4 H (3.8-10.6) k/uL RBC 4.17 L (4.30-5.90) m/uL Hgb 12.3 L (13.0-17.5) gm/dL Plt Count 122 L (150-450) k/uL Neutrophils # 12.5 H (1.3-7.7) k/uL Lymphocytes # 0.6 L (1.0-4.8) k/uL PT (9.0-12.0) sec Sodium 154 H (137-145) mmol/L Potassium 3.2 L (3.5-5.1) mmol/L Chloride 127 H* (98-107) mmol/L Carbon Dioxide 15 L (22-30) mmol/L BUN 68 H (9-20) mg/dL Creatinine 2.80 H (0.66-1.25) mg/dL Glucose 174 H (74-99) mg/dL POC Glucose (mg/dL) 168 H (75-99) mg/dL Calcium 7.6 L (8.4-10.2) mg/dL Magnesium 2.6 H (1.6-2.3) mg/dL Total Protein 4.4 L (6.3-8.2) g/dL Albumin 1.9 L (3.5-5.0) g/dL 07/30/16 07/30/16 07/30/16 Range/Units 07:59 11:14 16:47 WBC (3.8-10.6) k/uL RBC (4.30-5.90) m/uL Hgb (13.0-17.5) gm/dL Plt Count (150-450) k/uL Neutrophils # (1.3-7.7) k/uL Lymphocytes # (1.0-4.8) k/uL PT (9.0-12.0) sec Sodium (137-145) mmol/L Potassium (3.5-5.1) mmol/L Chloride (98-107) mmol/L Carbon Dioxide (22-30) mmol/L BUN (9-20) mg/dL Creatinine (0.66-1.25) mg/dL Glucose (74-99) mg/dL POC Glucose (mg/dL) 168 H 145 H 192 H (75-99) mg/dL Calcium (8.4-10.2) mg/dL Magnesium (1.6-2.3) mg/dL Total Protein (6.3-8.2) g/dL Albumin (3.5-5.0) g/dL Microbiology - Last 24 Hours (Table) 07/26/16 19:30 Blood Culture - Preliminary Blood No Growth after 72 hours 07/29/16 10:43 Stool Culture - Preliminary Stool Assessment and Plan Plan: 1. Acute cholecystitis with ascending cholangitis and sepsis hemodynamic instability and/or urinary tract infection with severe sepsis and septic shock with possible pseudomonas UTI. ICU, IV fluid resuscitation in the form of dextrose, Levophed, discontinue Vancomycin, start the patient on Zosyn 2.25 g IV piggyback every 8 hours, urine culture as well as blood culture 2, continue patient also on fluid resuscitation, monitor the patient the CMP, lactic acid, as well as WBC. Consult w Dr Islas appreciated. Dr. Luis is following for intensive care management. Cholecystotomy was performed 07/30/2016 culture sent from bile 2. Leukocytosis secondary to severe sepsis. Continue IV fluid resuscitation, continue IV antibiotic, repeat CBC in the next 24 hours. 3. 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 Continue IV fluid resuscitation, discontinue vancomycin, discontinue Levaquin, continue IV fluid resuscitation, continue Levophed, nephrology consultation, computed tomography scan of the abdomen and pelvis as above. 4. Severe abdominal pain with a prior history of abdominal aortic aneurysm back in 2013. We will obtain computed tomography scan of the abdomen and pelvis with oral contrast only. 5. Severe diarrhea. Check the stool for C. difficile, toxins a and B, check the stool culture, continue IV fluid resuscitation, discontinue vancomycin. 6. Anion gap metabolic acidosis as well as metabolic alkalosis. Continue IV fluid resuscitation, discontinue diuretics. 7. Lactic acidosis. Due to sepsis, continue IV fluid, continue IV antibiotic, repeat lactic acid in the next 24 hours. 8. CAD post-PCI. Continue aspirin 81 mg once every day, pravastatin 40, bedtime, hold off metoprolol for now. 9. Hypertension and hypertensive cardiovascular disease. Currently hypotensive we'll hold off antihypertensive medicine. 10. Enlarged prostate. Currently has a Ubrr catheter in place. 11. Parkinsonism. Currently on Sinemet 25/100 one tablet orally twice every day. 12. Diabetes mellitus type 2 with diabetic polyneuropathy. Continue patient on NovoLog Mix 70/30, continue patient on BGM 4 times every day. 13. Coagulopathy due to sepsis. 14. DVT prophylaxis. Heparin held due to coagulopathy. 15. GI prophylaxis. Protonix 40 mg IV push every 24 hours 16. Hypernatremia he would minimize IV saline infusion currently receiving IV fluids with D5W 16. No code. Prognosis currently extremely guarded Time with Patient: Greater than 30
[2016-07-31 00:02] LABS: Glucose,Whole Blood 237 mg/dL (75-99)
[2016-07-31] MEDS: metroNIDAZOLE-NS PMX 500 MG in SALINE 1 100ML.BAG IVPB SCH ×3 (00:33→16:50)
[2016-07-31] MEDS: INSULIN LISPRO (humaLOG) 300 UNIT/3 ML VIAL SQ SCH ×6 (00:33→20:42)
[2016-07-31] MEDS: 1: MVI, ADULT NO.4 WITH VIT K 10 ML, TRACE (CONC-1ML/DOSE) 1 ML, POTASSIUM ACETATE 10 ME IV SCH ×7 (00:34)
[2016-07-31 03:38] LABS: Glucose,Whole Blood 160 mg/dL (75-99)
[2016-07-31 05:03] LABS: INR 1.4 (<1.1)
[2016-07-31 05:04] LABS: Basophils % (A) 0 %; CHCM 29.8; Eosinophils # (A) 0.1 k/uL (0-0.7); Eosinophils % (A) 0 %; HCT 40.6 % (39.0-53.0); HDW 2.97; HGB 12.1 gm/dL (13.0-17.5); Hypochromasia Marked; Luc # (Auto) 0.29; Luc % (Auto) 3; Lymphocytes # (A) 0.7 k/uL (1.0-4.8); Lymphocytes % (A) 6 %; MCH 29.3 pg (25.0-35.0); MCHC 29.8 g/dL (31.0-37.0); MCV 98.2 fL (80.0-100.0); Mean Platelet Volume 8.7; Monocytes # (A) 0.6 k/uL (0-1.0); Monocytes % (A) 6 %; Neutrophils # (A) 9.4 k/uL (1.3-7.7); Neutrophils % (A) 85 %; RBC 4.13 m/uL (4.30-5.90); WBC 11.1 k/uL (3.8-10.6); WBC (Perox) 11.67
[2016-07-31 05:23] LABS: Calcium 7.5 mg/dL (8.4-10.2); Magnesium 2.4 mg/dL (1.6-2.3); Potassium 3.8 mmol/L (3.5-5.1); Total Bilirubin 0.6 mg/dL (0.2-1.3); Total Protein 4.5 g/dL (6.3-8.2)
--- NOTE | 2016-07-31 07:49 | XR ---
EXAMINATION TYPE: XR chest 1V DATE OF EXAM: 07/31/2016 7:00 AM CLINICAL HISTORY: Difficulty breathing progress study. TECHNIQUE: Single AP portable upright view of the chest is obtained. COMPARISON: Chest x-ray from one day earlier FINDINGS: There is persistent left basilar atelectasis and/or infiltrate. No exclude small of pleura l effusion. Right lung remains predominantly clear with patchy basilar atelectasis and/or infiltrate. Somewhat low lung volumes are redemonstrated. Cardiac silhouette size is stable and upper limits of normal with atherosclerotic and ectatic thoracic aorta. Osseous structures are intact. 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 IMPRESSION: Overall stable findings, low lung volumes and patchy left greater than right bibasilar atelectasis and/or infiltrate with suspected tiny left pleural effusion.
[2016-07-31 08:07] LABS: Glucose,Whole Blood 204 mg/dL (75-99)
--- NOTE | 2016-07-31 08:08 | US ---
Percutaneous cholecystostomy HISTORY: Sepsis, cholelithiasis, cholecystitis The skin overlying a suitable path to the patient's gallbladder was localized with ultrasound and the overlying skin was prepped and draped. Ultrasound used with sterile technique. Lidocaine was used fo r local anesthesia. Skin shannon was made with a scalpel. Under direct ultrasound guidance a 21-gauge n eedle was advanced into the gallbladder. A 0.018 inch wire was advanced. Access site was upsized and subsequently a 0.038 inch wire was advanced. 6.5 Albanian catheter was advanced over the wire into the gallbladder bile returned in the tube. Catheter was attached to gravity drainage and fixed to the ski n. Hemostasis achieved. No immediate complication. Patient remained in stable condition. IMPRESSION: Status post ultrasound-guided cholecystostomy, this procedure performed by the [facility]
[2016-07-31] MEDS: CYANOCOBALAMIN 500 MCG TAB PO SCH (08:25)
[2016-07-31] MEDS: CARBIDOPA-LEVODOPA 25-100 MG 1 EACH TAB PO SCH ×2 (08:25→20:39)
[2016-07-31] MEDS: PIPERACILLIN-TAZOBACTAM 3.375 GM in DEXTROSE/WATER 1 50ML.BAG IVPB SCH ×2 (08:25→16:42)
[2016-07-31] MEDS: IPRATROPIUM-ALBUTEROL 3 ML NEB INHALATION SCH ×4 (08:27→19:30)
--- NOTE | 2016-07-31 08:31 | P.CONS ---
History of Present Illness - Reason for Consult Consult date: 07/31/16 - Chief Complaint Fever - History of Present Illness 85-year-old male who has a known history of underlying coronary artery disease status post stenting boxing history of hypertension and hypertensive cardiovascular disease. Presents to the emergency center from the rehab facility [facility] on the [place] where he had been sent after his hospitalization in June. At about 10 was having progressive weakness. He was having falls and unable to get up from the floor. It's related that in June when he became ill he simply grabbed a pillow in a blanket and supplement the floor overnight because he was not able to get up off the floor. By the next morning when he was still weak was able to call EMS and he was brought to hospital. He was evidence of sepsis from the urinary system was treated with antibiotic therapy and then had improvement. Patient will ever has become more septic with concerns to his urinary infection but also developed abdominal pain that became progressively more severe. He has been seen by surgery but because of his multiple medical troubles was not thought to be a good surgical candidate. In counseling he is now had the percutaneous cholecystostomy tube placed for drainage of his biliary tract which appears to be also a source of sepsis at this time. With evidence of a multidrug resistant pseudomonas aeruginosa the infectious diseases consultation was requested. This time this pleasant gentleman remains in the intensive care unit. He is arousable is following simple commands and is not conversational. Review of Systems ROS unobtainable: due to mental status Past Medical History Past Medical History: Coronary Artery Disease (CAD), COPD, Diabetes Mellitus, GERD/Reflux, Hyperlipidemia, Hypertension, Memory Impairment, Myocardial Infarction ([place]), Neurologic Disorder (Parkinson), Osteoarthritis (OA), Prostate Disorder, Renal Disease Additional Past Medical History / Comment(s): BASAL CANCER EARLOBES. Last Myocardial Infarction Date:: 2001 History of Any Multi-Drug Resistant Organisms: None Reported, Other MDRO ( Pseudomonas aeruginosa) Past Surgical History: Appendectomy, Heart Catheterization With Stent, Orthopedic Surgery Additional Past Surgical History / Comment(s): VON CATARACT REMOVAL, LEFT TKA Past Anesthesia/Blood Transfusion Reactions: No Reported Reaction Date of Last Stent Placement:: 2001 Past Psychological History: No Psychological Hx Reported Additional Psychological History / Comment(s): currently residing at extended care. Retired. Positive experience no recent travel. No recent animal exposures Smoking Status: Former smoker Past Alcohol Use History: None Reported Past Drug Use History: None Reported - Past Family History Brother(s) Family Medical History: Diabetes Mellitus Father Family Medical History: Unable to Obtain Mother Family Medical History: Unable to Obtain Son(s) Family Medical History: No Reported History Medications and Allergies Home Medications and Allergies Comment(s): Current Medications Albuterol/Ipratropium (Duoneb 0.5 Mg-3 Mg/3 Ml Soln) 3 ml INHALATION RT-QID PRN PRN Reason: Shortness Of Breath Or Wheezing Albuterol/Ipratropium (Duoneb 0.5 Mg-3 Mg/3 Ml Soln) 3 ml INHALATION RT-QID [facility] Last Admin: 07/30/16 19:46 Dose: 3 ml Carbidopa/Levodopa (Sinemet 25-100) 1 each PO BID [facility] Last Admin: 07/30/16 20:16 Dose: Not Given Cyanocobalamin (Vitamin B-12) 500 mcg PO DAILY [facility] Last Admin: 07/30/16 08:41 Dose: Not Given Piperacillin/Tazobactam/ (Dextrose 3.375 gm/ IV Solution) 50 mls @ 12.5 mls/hr IVPB Q12HR [facility] Last Admin: 07/30/16 20:15 Dose: 12.5 mls/hr Norepinephrine Bitartrate 4 mg (/ Sodium Chloride) 254 mls @ 0 mls/hr IV .Q0M LV; Titrate PRN Reason: Protocol Last Titration: 07/30/16 12:09 Dose: 0 mcg/min, 0 mls/hr Metronidazole 500 mg/ IV (Solution) 100 mls @ 100 mls/hr IVPB Q8HR [facility] Last Admin: 07/31/16 00:33 Dose: 100 mls/hr Dextrose/Water (Dextrose 5%-Water Iv Soln) 1,000 mls @ 100 mls/hr IV .Q10H [facility] Last Admin: 07/30/16 21:54 Dose: 100 mls/hr Fat Emulsion Intravenous (Lipids 20%) 250 mls @ 21 mls/hr IV DAILY [facility] Last Admin: 07/30/16 11:12 Dose: 21 mls/hr Potassium Chloride 20 meq/Lidocaine HCl 20 mg/ Sodium Chloride 111 mls @ 55.5 mls/hr IVPB Q2HR LV Stop: 07/31/16 11:59 Parenteral Vitamin Supplement 10 ml/ Chromium/Copper/Manganese/Seleni/Zn 1 ml/ Potassium Acetate 16 meq/Potassium Phosphate 10 mmol/Calcium Gluconate 1,000 mg/ Amino Acids/Dextrose 1,032.3333 mls @ 83 mls/hr IV .BY DURATION [facility] Potassium Acetate 16 meq/Magnesium Sulfate 4 meq/Potassium Phosphate 10 mmol/ Calcium Gluconate 1,000 mg/Amino Acids/Dextrose 1,022.3333 mls @ 83 mls/hr IV .BY DURATION [facility] Insulin Aspart (Novolog Mix 70-30 Vial) 18 unit SQ BID [facility] Last Admin: 07/30/16 20:15 Dose: 18 unit Insulin Human Lispro (Humalog) 0 unit SQ Q4H [facility] PRN Reason: Protocol Last Admin: 07/31/16 04:10 Dose: 1 unit Miscellaneous Information (Potassium Per Protocol) 1 each MISCELLANE DAILY PRN ; Protocol PRN Reason: Per Protocol Miscellaneous Information (Magnesium Per Protocol) 1 each MISCELLANE DAILY PRN ; Protocol PRN Reason: Per Protocol Pantoprazole Sodium (Protonix) 40 mg IV DAILY [facility] Last Admin: 07/30/16 08:38 Dose: 40 mg Home Medications Medication Instructions Recorded Confirmed Type Insuln Asp Prt/Insulin Aspart 30 units SQ HS 05/29/14 07/26/16 History [NovoLOG MIX 70-30 VIAL] Insuln Asp Prt/Insulin Aspart 35 units SQ QA 05/29/14 07/26/16 History [NovoLOG MIX 70-30 VIAL] Lovastatin 40 mg PO HS@2100 05/29/14 07/26/16 History hydrALAZINE HCL [Apresoline] 25 mg PO BID 07/05/16 07/26/16 History Carbidopa-Levodopa 25-100 mg 1 tab PO BID 07/26/16 07/26/16 History [Sinemet 25-100 mg] Cholecalciferol [Vitamin D3] 1,000 unit PO HS 07/26/16 07/26/16 History Cyanocobalamin [Vitamin B-12] 500 mcg PO DAILY 07/26/16 07/26/16 History Midodrine HCl [ProAmatine] 10 mg PO TID 07/26/16 07/26/16 History Omeprazole 20 mg PO DAILY 01/11/17 01/11/17 History Allergies Allergy/AdvReac Type Severity Reaction Status Date / Time dipyridamole Allergy Confusion Verified 07/26/16 14:41 [From Persantine] Physical Exam Vitals: Vital Signs Temp Pulse Pulse Resp BP BP Pulse Ox 07/31/16 07:00 65 24 122/25 97 07/31/16 06:00 67 26 H 120/52 99 07/31/16 05:00 63 25 H 106/44 97 07/31/16 04:00 98.6 F 72 14 117/44 100 07/31/16 03:25 85 24 07/31/16 03:00 71 24 114/52 98 07/31/16 02:00 74 24 115/48 100 07/31/16 01:00 74 24 119/53 98 07/31/16 00:00 98.3 F 74 85 27 H 110/49 99 07/30/16 23:00 78 25 H 113/48 99 07/30/16 22:00 72 24 118/48 98 07/30/16 21:30 65 25 H 109/52 98 07/30/16 21:00 69 26 H 120/51 98 07/30/16 20:30 83 24 128/53 96 07/30/16 20:00 97.9 F 64 85 24 103/47 96 07/30/16 19:49 69 07/30/16 19:38 70 07/30/16 19:00 71 25 H 107/47 97 07/30/16 18:30 66 25 H 111/49 96 07/30/16 18:00 69 24 114/54 96 07/30/16 17:30 80 24 99/51 96 07/30/16 17:00 80 26 H 116/54 95 07/30/16 16:30 61 22 106/51 94 L 07/30/16 16:00 99.6 F 78 85 26 H 111/47 94 L 07/30/16 15:30 79 25 H 112/48 95 07/30/16 15:00 75 27 H 124/55 95 07/30/16 14:30 68 24 129/57 93 L 07/30/16 14:00 80 25 H 126/54 95 07/30/16 13:30 78 23 119/51 94 L 07/30/16 13:00 93 23 114/52 92 L 07/30/16 12:30 84 21 127/53 92 L 07/30/16 12:00 97.7 F 85 85 26 H 126/54 95 07/30/16 11:54 83 07/30/16 11:40 79 26 H 96 07/30/16 11:20 83 21 105/52 95 07/30/16 11:00 73 20 107/54 94 L 07/30/16 10:45 87 20 101/47 93 L 07/30/16 10:30 84 21 110/49 94 L 07/30/16 10:15 76 21 105/54 94 L 07/30/16 10:00 82 22 105/54 95 07/30/16 09:45 98 25 H 111/54 95 07/30/16 09:30 76 27 H 70/39 95 07/30/16 09:15 91 24 112/43 94 L 07/30/16 09:00 77 24 108/51 94 L 07/30/16 08:49 80 07/30/16 08:43 98.8 F 85 28 H 108/51 94 L 07/30/16 08:36 80 Intake and Output 07/30/16 07/31/16 07/31/16 22:59 06:59 14:59 Intake Total 1682 1585 Output Total 1045 520 Balance 637 1065 Intake: Intake, IV Titration 1682 1585 Amount Dextrose 5% in Water 1, 800 800 000 ml @ 100 mls/hr IV . Q10H LV Rx#:[id number] Fat Emulsion 20% 250 ml @ 168 21 21 mls/hr IV DAILY LV Rx#:[id number] Mvi, Adult No.4 with Vit 581 K 10 ml Trace (Conc-1Ml/ Dose) 1 ml Potassium Acetate 10 meq Magnesium Sulfate 5 meq Potassium Phosphate 15 mmol Calcium Gluconate 1,000 mg In Amino Acid 4.25%-D10w 1, 000 ml @ 83 mls/hr IV .BY DURATION LV Rx#: [id number] Piperacillin-Tazobactam 3 50 .375 gm In Dextrose/Water 1 50ml.bag @ 12.5 mls/hr IVPB Q12HR LV Rx#: [id number] Potassium Acetate 10 meq 664 83 Magnesium Sulfate 5 meq Potassium Phosphate 15 mmol Calcium Gluconate 1, 000 mg In Amino Acid 4.25 %-D10w 1,000 ml @ 83 mls/ hr IV .BY DURATION LV Rx #:[id number] metroNIDAZOLE-NS PMX 500 100 mg In Saline 1 100ml.bag @ 100 mls/hr IVPB Q8HR LV Rx#:[id number] Output: Drainage 200 Right side, percuaneous 200 biliary drain Urine 545 520 Stool 300 Other: Voiding Method Indwelling Catheter Indwelling Catheter Weight 103.1 kg 102.5 kg 85-year-old male seems to be comfortable. He is able to respond to commands but is not conversational at this time. Occasional yes or no answer HEENT: Anicteric conjunctiva are pink and moist nasal mucosa grossly intact without significant lesions, there is no thrush. Oral cavity dry Neck: The neck is supple without significant lymphadenopathy or thyromegaly. Lungs: There is symmetrical air entry. There was significant crackles and wheezes that were scattered that improved greatly once he coughs upon command. Minimally few basilar crackles were heard. No dullness is noted. Heart: Irregular with an audible S1 and S2 no S3 soft S4 no distinct murmur click or rub is noted PMI was nondisplaced without heave or thrill Abdomen: Few bowel sounds are noted. His abdomen is quite tender throughout. He does moan in pain when his abdomen is touched. It is mildly rigid but not distinctly distended. A compel palpate no mass. And his greatest pain in the right upper quadrant. He does not have significant flank pain. No bruising to the abdominal wall was noted. Extremities: Generalized edema with weeping from prior IV sites. Peripheral pulses were 2+ and symmetric. Skin: Has evidence of some generalized edema. There is evidence of weeping from prior IV sites. There is no significant open ulcerations at this time. There is evidence of only minimal erythema to the buttocks. No pressure ulcerations are seen at this time. Neuro: The patient is awake and is able to respond to the observer mostly by following commands. He is not conversational but does nod his head to questions. His pain control appears to be adequate. Results CBC & Chem 7: 07/31/16 04:45 07/31/16 04:45 Labs: Abnormal Lab Results - Last 24 Hours (Table) 07/30/16 07/30/16 07/30/16 Range/Units 11:14 16:47 20:15 WBC (3.8-10.6) k/uL RBC (4.30-5.90) m/uL Hgb (13.0-17.5) gm/dL MCHC (31.0-37.0) g/dL Plt Count (150-450) k/uL Neutrophils # (1.3-7.7) k/uL Lymphocytes # (1.0-4.8) k/uL PT (9.0-12.0) sec Sodium (137-145) mmol/L Chloride (98-107) mmol/L Carbon Dioxide (22-30) mmol/L BUN (9-20) mg/dL Creatinine (0.66-1.25) mg/dL Glucose (74-99) mg/dL POC Glucose (mg/dL) 145 H 192 H 230 H (75-99) mg/dL Calcium (8.4-10.2) mg/dL Magnesium (1.6-2.3) mg/dL Total Protein (6.3-8.2) g/dL Albumin (3.5-5.0) g/dL 07/30/16 07/31/16 07/31/16 Range/Units 23:59 03:36 04:45 WBC 11.1 H (3.8-10.6) k/uL RBC 4.13 L (4.30-5.90) m/uL Hgb 12.1 L (13.0-17.5) gm/dL MCHC 29.8 L (31.0-37.0) g/dL Plt Count 117 L (150-450) k/uL Neutrophils # 9.4 H (1.3-7.7) k/uL Lymphocytes # 0.7 L (1.0-4.8) k/uL PT (9.0-12.0) sec Sodium (137-145) mmol/L Chloride (98-107) mmol/L Carbon Dioxide (22-30) mmol/L BUN (9-20) mg/dL Creatinine (0.66-1.25) mg/dL Glucose (74-99) mg/dL POC Glucose (mg/dL) 237 H 160 H (75-99) mg/dL Calcium (8.4-10.2) mg/dL Magnesium (1.6-2.3) mg/dL Total Protein (6.3-8.2) g/dL Albumin (3.5-5.0) g/dL 07/31/16 07/31/16 07/31/16 Range/Units 04:45 04:45 08:03 WBC (3.8-10.6) k/uL RBC (4.30-5.90) m/uL Hgb (13.0-17.5) gm/dL MCHC (31.0-37.0) g/dL Plt Count (150-450) k/uL Neutrophils # (1.3-7.7) k/uL Lymphocytes # (1.0-4.8) k/uL PT 14.0 H (9.0-12.0) sec Sodium 150 H (137-145) mmol/L Chloride 126 H* (98-107) mmol/L Carbon Dioxide 13 L (22-30) mmol/L BUN 68 H (9-20) mg/dL Creatinine 2.50 H (0.66-1.25) mg/dL Glucose 182 H (74-99) mg/dL POC Glucose (mg/dL) 204 H (75-99) mg/dL Calcium 7.5 L (8.4-10.2) mg/dL Magnesium 2.4 H (1.6-2.3) mg/dL Total Protein 4.5 L (6.3-8.2) g/dL Albumin 1.9 L (3.5-5.0) g/dL Microbiology - Last 24 Hours (Table) 07/30/16 11:40 Gram Stain - Preliminary Aspirate Body Fluid Culture - Preliminary 07/26/16 19:30 Blood Culture - Preliminary Blood No Growth after 96 hours Laboratory Results WBC 11.1 k/uL (3.8-10.6) H 07/31/16 04:45 RBC 4.13 m/uL (4.30-5.90) L 07/31/16 04:45 Hgb 12.1 gm/dL (13.0-17.5) L 07/31/16 04:45 Hct 40.6 % (39.0-53.0) 07/31/16 04:45 MCV 98.2 fL (80.0-100.0) 07/31/16 04:45 MCH 29.3 pg (25.0-35.0) 07/31/16 04:45 MCHC 29.8 g/dL (31.0-37.0) L 07/31/16 04:45 RDW 15.0 % (11.5-15.5) 07/31/16 04:45 Plt Count 117 k/uL (150-450) L 07/31/16 04:45 Neutrophils % 85 % 07/31/16 04:45 Lymphocytes % 6 % 07/31/16 04:45 Monocytes % 6 % 07/31/16 04:45 Eosinophils % 0 % 07/31/16 04:45 Basophils % 0 % 07/31/16 04:45 Neutrophils # 9.4 k/uL (1.3-7.7) H 07/31/16 04:45 Lymphocytes # 0.7 k/uL (1.0-4.8) L 07/31/16 04:45 Monocytes # 0.6 k/uL (0-1.0) 07/31/16 04:45 Eosinophils # 0.1 k/uL (0-0.7) 07/31/16 04:45 Basophils # 0.0 k/uL (0-0.2) 07/31/16 04:45 Hypochromasia Marked 07/31/16 04:45 PT 14.0 sec (9.0-12.0) H 07/31/16 04:45 INR 1.4 (<1.1) 07/31/16 04:45 APTT 31.0 sec (22.0-30.0) H 07/29/16 04:37 Fibrinogen 685 mg/dL (200-500) H 07/28/16 12:24 D-Dimer 3.25 mg/L FEU (<0.60) H 07/28/16 12:24 Sodium 150 mmol/L (137-145) H 07/31/16 04:45 Potassium 3.8 mmol/L (3.5-5.1) 07/31/16 04:45 Chloride 126 mmol/L (98-107) H* 07/31/16 04:45 Carbon Dioxide 13 mmol/L (22-30) L 07/31/16 04:45 Anion Gap 11 mmol/L 07/31/16 04:45 BUN 68 mg/dL (9-20) H 07/31/16 04:45 Creatinine 2.50 mg/dL (0.66-1.25) H 07/31/16 04:45 Est GFR (MDRD) Af Amer 30 (>60 ml/min/1.73 sqM) 07/31/16 04:45 Est GFR (MDRD) Non-Af 25 (>60 ml/min/1.73 sqM) 07/31/16 04:45 Glucose 182 mg/dL (74-99) H 07/31/16 04:45 POC Glucose (mg/dL) 204 mg/dL (75-99) H 07/31/16 08:03 POC Glu [employer] Practitioner ID 07/31/16 08:[address] Glu mg/dL 143 mg/dL 07/27/16 03:33 Hemoglobin A1c 6.6 % (4.2-6.1) H 07/27/16 03:33 Plasma Lactic Acid Yovanny 1.6 mmol/L (0.7-2.0) 07/26/16 20:08 Calcium 7.5 mg/dL (8.4-10.2) L 07/31/16 04:45 Ionized Calcium Ced 5.2 mg/dL (4.5-5.3) 07/31/16 05:31 Phosphorus 3.0 mg/dL (2.5-4.5) 07/31/16 04:45 Magnesium 2.4 mg/dL (1.6-2.3) H 07/31/16 04:45 Total Bilirubin 0.6 mg/dL (0.2-1.3) 07/31/16 04:45 AST 25 U/L (17-59) 07/31/16 04:45 ALT 25 U/L (21-72) 07/31/16 04:45 Alkaline Phosphatase 51 U/L (38-126) 07/31/16 04:45 Total Creatine Kinase 40 U/L (55-170) L 07/27/16 03:33 CK-MB (CK-2) 1.0 ng/mL (0.0-2.4) 07/27/16 03:33 CK-MB (CK-2) Rel Index 2.5 07/27/16 03:33 Troponin I 0.123 ng/mL (0.000-0.034) H* 07/27/16 03:33 Total Protein 4.5 g/dL (6.3-8.2) L 07/31/16 04:45 Albumin 1.9 g/dL (3.5-5.0) L 07/31/16 04:45 Triglycerides 67 mg/dL (<150) 07/31/16 04:45 Cortisol 78 ug/dL 07/26/16 20:08 Urine Color 07/26/16 16:55 Urine WBC >182 /hpf (0-5) H 07/26/16 16:55 Urine WBC Clumps Many /hpf (None) H 07/26/16 16:55 Urine Bacteria Rare /hpf (None) H 07/26/16 16:55 Stl Cryptosporidium Ag Negative (Negative) 07/29/16 15:50 Stool Giardia Source Stool 07/29/16 15:50 Stl Giardia Antigen Negative (Negative) 07/29/16 15:50 Random Vancomycin 9.9 ug/mL 07/28/16 04:11 Urine Opiates Screen Not Detected (NotDetected) 07/26/16 16:55 Ur Oxycodone Screen Not Detected (NotDetected) 07/26/16 16:55 Urine Methadone Screen Not Detected (NotDetected) 07/26/16 16:55 Ur Propoxyphene Screen Not Detected (NotDetected) 07/26/16 16:55 Ur Barbiturates Screen Not Detected (NotDetected) 07/26/16 16:55 U Tricyclic Antidepress Not Detected (NotDetected) 07/26/16 16:55 Ur Phencyclidine Scrn Not Detected (NotDetected) 07/26/16 16:55 Ur Amphetamines Screen Not Detected (NotDetected) 07/26/16 16:55 U Methamphetamines Scrn Not Detected (NotDetected) 07/26/16 16:55 U Benzodiazepines Scrn Not Detected (NotDetected) 07/26/16 16:55 Urine Cocaine Screen Not Detected (NotDetected) 07/26/16 16:55 U Marijuana (THC) Screen Not Detected (NotDetected) 07/26/16 16:55 C. difficile (EIA) Intrp Negative (Negative) 07/26/16 14:39 C. difficile Tox (PCR) Not Detected (Not Detectd) 07/27/16 15:35 Blood Type O Positive 07/26/16 14:39 Blood Type Recheck No 07/26/16 14:39 Antibody Screen NEGATIVE 07/26/16 14:39 Spec Expiration Date 07/29/2016 - 2339 07/26/16 14:39 Microbiology 07/30/16 11:40 Aspirate Gram Stain - Preliminary 07/30/16 11:40 Aspirate Body Fluid Culture - Preliminary 07/26/16 19:30 Blood Blood Culture - Preliminary No Growth after 96 hours 07/26/16 14:39 Blood Blood Culture - Preliminary No Growth after 96 hours 07/26/16 14:49 Urine,Catheterized Urine Culture - Final Pseudomonas aeruginosa 07/29/16 10:43 Stool Stool Culture - Preliminary Assessment and Plan (1) Sepsis due to Gram-negative organism with septic shock Narrative/Plan: Pleasant 85-year-old male presented hospital as a transfer from [facility] care facility because of evidence of fever and worsening status. 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 His had several interventions in the past including cystoscopy and double-J catheter placements. 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 The organism fortunately is susceptible to piperacillin tazobactam and has been utilized at this point in time. With his improvement would not further adjust or enhance the antimicrobial therapy. His hypotension has resolved and is now off the Levaquin. There is evidence of the acute cholecystitis and is now had a percutaneous cholecystostomy tube placed. Seems to be having some improvement in his blood pressure is better off of vasopressor therapy. Still has a significantly tender abdomen. Would expect her to start to improve over the next 24-48 hours. Receiving nutrition via TPN. For a PICC line today to transition his nutritional support. Blood cultures are negative. Culture from the drainage is in process and pending at this time. With the piperacillin tazobactam being utilized would not need metronidazole. Leukocytosis is improving and from the significant infection of the urinary system as well as of his acute cholecystitis. Status: Acute (2) Pseudomonas urinary tract infection Status: Acute (3) Cholecystitis Status: Acute
[2016-07-31] MEDS: INSULN ASP PRT/INSULIN ASPART 100 UNIT/ML 10 ML VIAL SQ SCH ×3 (08:34→20:46)
[2016-07-31] MEDS: PANTOPRAZOLE 40 MG/10 ML VIAL IV SCH (08:38)
[2016-07-31] MEDS: POTASSIUM CHLORIDE 20 MEQ, LIDOCAINE 2% INJ 20 MG in SODIUM CHLORIDE 0.9% 100 ML IVPB SCH ×2 (09:21→11:40)
[2016-07-31] MEDS: DEXTROSE 5% IN WATER 1,000 ML IV SCH ×5 (09:21→21:03)
--- NOTE | 2016-07-31 09:42 | P.PN ---
Subjective Patient is seen in follow-up for acute kidney injury. Renal function is improving with creatinine down to 2.5 today. Hemodynamically he stable. Sodium level is down to 150. However he remains acidotic with a bicarb level of 13. He is currently not receiving TPN. He did have a cholecystostomy tube placed this admission for acute cholangitis. Output from the drain has been decreasing. Patient is quite lethargic. He is nonoliguric. Vital signs are stable. General: The patient appeared well nourished and normally developed. HEENT: Head exam is unremarkable. Neck is without jugular venous distension. LUNGS: Lungs are clear to auscultation and percussion. Breath sounds decreased. HEART: Rate and Rhythm are regular. First and second heart sounds normal. No murmurs, rubs or gallops. ABDOMEN: Abdominal exam reveals normal bowel sounds. Non-tender and non- distended. No evidence of peritonitis. EXTREMITITES: No clubbing, cyanosis, or edema. Objective - Vital Signs Vital signs: Vital Signs Temp 99.2 F 07/31/16 08:00 Pulse 70 07/31/16 09:00 Resp 24 07/31/16 09:00 BP 102/48 07/31/16 09:00 Pulse Ox 96 07/31/16 09:00 Intake & Output 07/30/16 07/31/16 07/31/16 18:59 06:59 18:59 Intake Total 2570.056 2451 616 Output Total 1205 740 245 Balance 4116.018 4620 371 Weight 103.1 kg 102.5 kg Intake: Intake, IV Titration 2570.056 2451 616 Amount Dextrose 5% in Water 1, 1150 1200 300 000 ml @ 100 mls/hr IV . Q10H LV Rx#:[id number] Fat Emulsion 20% 250 ml @ 168 105 21 mls/hr IV DAILY LV Rx#:[id number] Mvi, Adult No.4 with Vit 250 K 10 ml Trace (Conc-1Ml/ Dose) 1 ml In Amino Acid 4.25%-D10w+Lytes*E* 1,000 ml @ 50 mls/hr IV . [id number] LV Rx#:[id number] Mvi, Adult No.4 with Vit 581 166 K 10 ml Trace (Conc-1Ml/ Dose) 1 ml Potassium Acetate 10 meq Magnesium Sulfate 5 meq Potassium Phosphate 15 mmol Calcium Gluconate 1,000 mg In Amino Acid 4.25%-D10w 1, 000 ml @ 83 mls/hr IV .BY DURATION [facility] Rx#: [id number] Norepinephrine 4 mg In 71.056 Sodium Chloride 0.9% 250 ml @ Titrate IV .Q0M LV Rx#:[id number] Piperacillin-Tazobactam 3 50 50 50 .375 gm In Dextrose/Water 1 50ml.bag @ 12.5 mls/hr IVPB Q12HR LV Rx#: [id number] Potassium Acetate 10 meq 581 415 Magnesium Sulfate 5 meq Potassium Phosphate 15 mmol Calcium Gluconate 1, 000 mg In Amino Acid 4.25 %-D10w 1,000 ml @ 83 mls/ hr IV .BY DURATION LV Rx #:[id number] Potassium Chloride 20 meq 200 Lidocaine 2% Inj 20 mg In Sodium Chloride 0.9% 100 ml @ 55.5 mls/hr IVPB Q2HR LV Rx#:[id number] metroNIDAZOLE-NS PMX 500 100 100 100 mg In Saline 1 100ml.bag @ 100 mls/hr IVPB Q8HR LV Rx#:[id number] Output: Drainage 200 Right side, percuaneous 200 biliary drain Urine 705 740 145 Stool 300 100 Other: Voiding Method Indwelling Catheter Indwelling Catheter - Labs CBC & Chem 7: 07/31/16 04:45 07/31/16 04:45 Labs: Abnormal Lab Results - Last 24 Hours (Table) 07/30/16 07/30/16 07/30/16 Range/Units 11:14 16:47 20:15 WBC (3.8-10.6) k/uL RBC (4.30-5.90) m/uL Hgb (13.0-17.5) gm/dL MCHC (31.0-37.0) g/dL Plt Count (150-450) k/uL Neutrophils # (1.3-7.7) k/uL Lymphocytes # (1.0-4.8) k/uL PT (9.0-12.0) sec Sodium (137-145) mmol/L Chloride (98-107) mmol/L Carbon Dioxide (22-30) mmol/L BUN (9-20) mg/dL Creatinine (0.66-1.25) mg/dL Glucose (74-99) mg/dL POC Glucose (mg/dL) 145 H 192 H 230 H (75-99) mg/dL Calcium (8.4-10.2) mg/dL Magnesium (1.6-2.3) mg/dL Total Protein (6.3-8.2) g/dL Albumin (3.5-5.0) g/dL 07/30/16 07/31/16 07/31/16 Range/Units 23:59 03:36 04:45 WBC 11.1 H (3.8-10.6) k/uL RBC 4.13 L (4.30-5.90) m/uL Hgb 12.1 L (13.0-17.5) gm/dL MCHC 29.8 L (31.0-37.0) g/dL Plt Count 117 L (150-450) k/uL Neutrophils # 9.4 H (1.3-7.7) k/uL Lymphocytes # 0.7 L (1.0-4.8) k/uL PT (9.0-12.0) sec Sodium (137-145) mmol/L Chloride (98-107) mmol/L Carbon Dioxide (22-30) mmol/L BUN (9-20) mg/dL Creatinine (0.66-1.25) mg/dL Glucose (74-99) mg/dL POC Glucose (mg/dL) 237 H 160 H (75-99) mg/dL Calcium (8.4-10.2) mg/dL Magnesium (1.6-2.3) mg/dL Total Protein (6.3-8.2) g/dL Albumin (3.5-5.0) g/dL 07/31/16 07/31/16 07/31/16 Range/Units 04:45 04:45 08:03 WBC (3.8-10.6) k/uL RBC (4.30-5.90) m/uL Hgb (13.0-17.5) gm/dL MCHC (31.0-37.0) g/dL Plt Count (150-450) k/uL Neutrophils # (1.3-7.7) k/uL Lymphocytes # (1.0-4.8) k/uL PT 14.0 H (9.0-12.0) sec Sodium 150 H (137-145) mmol/L Chloride 126 H* (98-107) mmol/L Carbon Dioxide 13 L (22-30) mmol/L BUN 68 H (9-20) mg/dL Creatinine 2.50 H (0.66-1.25) mg/dL Glucose 182 H (74-99) mg/dL POC Glucose (mg/dL) 204 H (75-99) mg/dL Calcium 7.5 L (8.4-10.2) mg/dL Magnesium 2.4 H (1.6-2.3) mg/dL Total Protein 4.5 L (6.3-8.2) g/dL Albumin 1.9 L (3.5-5.0) g/dL Microbiology - Last 24 Hours (Table) 07/30/16 11:40 Gram Stain - Preliminary Aspirate Body Fluid Culture - Preliminary 07/26/16 19:30 Blood Culture - Preliminary Blood No Growth after 96 hours Assessment and Plan Plan: Assessment: #1. Nonoliguric acute kidney injury secondary to hemodynamic instability and sepsis. Renal function improving with creatinine down to 2.5 today. #2. Severe sepsis secondary to acute cholangitis as well as UTI. #3. Hypernatremia secondary to lack of oral water intake. Sodium level CL today. #4. Hyperchloremic metabolic acidosis secondary to acute kidney injury and GI losses. #5. Severe protein calorie malnutrition. Plan: I will increase D5W to be run at 125 mL an hour. 3 A of sodium bicarbonate IV push. Once TPN was resumed, we will increase acetate in the feedings. Avoid nephrotoxic agents and hypotensive episodes. Repeat electrolytes in the morning.
--- NOTE | 2016-07-31 09:57 | IR ---
Cholecystostomy, biliary drainage Please see dictated report ultrasound peritoneal drain
[2016-07-31] MEDS: FAT EMULSION 20% 250 ML IV SCH (10:30)
[2016-07-31] MEDS ORDERED: SODIUM BICARB 8.4% 50 ML SYR (1 MEQ/ML) IV ONE (10:33)
[2016-07-31] MEDS ORDERED: [UNRECOGNIZED DRUG - REMARK] IV SCH ×14 (12:00→18:00)
[2016-07-31 12:02] LABS: Glucose,Whole Blood 173 mg/dL (75-99)
--- NOTE | 2016-07-31 12:19 | P.PN ---
Subjective Principal diagnosis: Septic shock Patient seen and examined in the ICU with nursing staff at bedside. Patient is slightly more responsive today. Patient has been afebrile overnight. His sodium and chloride are improving. He does have a worsening acidosis. Case is discussed with nephrology who is adjusting his PPN and will order 3 A of bicarb. The patient's renal function is improving slowly. He does have adequate urine output. He has been off of Levophed since 1300 yesterday. There has been about 100 mL out of his cholecystostomy tube. Objective - Vital Signs Vital signs: Vital Signs Temp 99.2 F 07/31/16 08:00 Pulse 76 07/31/16 12:07 Resp 24 07/31/16 09:00 BP 102/48 07/31/16 09:00 Pulse Ox 96 07/31/16 09:00 Intake & Output 07/30/16 07/31/16 07/31/16 18:59 06:59 18:59 Intake Total 2570.056 2451 841 Output Total 1205 740 295 Balance 6977.871 0997 546 Weight 103.1 kg 102.5 kg Intake: Intake, IV Titration 2570.056 2451 841 Amount Dextrose 5% in Water 1, 1150 1200 425 000 ml @ 125 mls/hr IV . Q8H LV Rx#:[id number] Fat Emulsion 20% 250 ml @ 168 105 21 mls/hr IV DAILY LV Rx#:[id number] Mvi, Adult No.4 with Vit 250 K 10 ml Trace (Conc-1Ml/ Dose) 1 ml In Amino Acid 4.25%-D10w+Lytes*E* 1,000 ml @ 50 mls/hr IV . [id number] LV Rx#:[id number] Mvi, Adult No.4 with Vit 581 166 K 10 ml Trace (Conc-1Ml/ Dose) 1 ml Potassium Acetate 10 meq Magnesium Sulfate 5 meq Potassium Phosphate 15 mmol Calcium Gluconate 1,000 mg In Amino Acid 4.25%-D10w 1, 000 ml @ 83 mls/hr IV .BY DURATION LV Rx#: [id number] Norepinephrine 4 mg In 71.056 Sodium Chloride 0.9% 250 ml @ Titrate IV .Q0M LV Rx#:[id number] Piperacillin-Tazobactam 3 50 50 50 .375 gm In Dextrose/Water 1 50ml.bag @ 12.5 mls/hr IVPB Q12HR LV Rx#: [id number] Potassium Acetate 10 meq 581 415 Magnesium Sulfate 5 meq Potassium Phosphate 15 mmol Calcium Gluconate 1, 000 mg In Amino Acid 4.25 %-D10w 1,000 ml @ 83 mls/ hr IV .BY DURATION LV Rx #:[id number] Potassium Chloride 20 meq 200 100 Lidocaine 2% Inj 20 mg In Sodium Chloride 0.9% 100 ml @ 55.5 mls/hr IVPB Q2HR LV Rx#:[id number] metroNIDAZOLE-NS PMX 500 100 100 100 mg In Saline 1 100ml.bag @ 100 mls/hr IVPB Q8HR LV Rx#:[id number] Output: Drainage 200 Right side, percuaneous 200 biliary drain Urine 705 740 195 Stool 300 100 Other: Voiding Method Indwelling Catheter Indwelling Catheter - Exam Gen.: Patient opens his eyes to verbal stimuli, he will answer questions but is slow to respond Cardiovascular: Regular rate and rhythm, S1/S2 Lungs: Diminished breath sounds at the bilateral bases Abdomen: Soft nontender nondistended positive bowel sounds Extremities: No edema - Labs CBC & Chem 7: 07/31/16 04:45 07/31/16 04:45 Labs: Abnormal Lab Results - Last 24 Hours (Table) 07/30/16 07/30/16 07/30/16 Range/Units 16:47 20:15 23:59 WBC (3.8-10.6) k/uL RBC (4.30-5.90) m/uL Hgb (13.0-17.5) gm/dL MCHC (31.0-37.0) g/dL Plt Count (150-450) k/uL Neutrophils # (1.3-7.7) k/uL Lymphocytes # (1.0-4.8) k/uL PT (9.0-12.0) sec Sodium (137-145) mmol/L Chloride (98-107) mmol/L Carbon Dioxide (22-30) mmol/L BUN (9-20) mg/dL Creatinine (0.66-1.25) mg/dL Glucose (74-99) mg/dL POC Glucose (mg/dL) 192 H 230 H 237 H (75-99) mg/dL Calcium (8.4-10.2) mg/dL Magnesium (1.6-2.3) mg/dL Total Protein (6.3-8.2) g/dL Albumin (3.5-5.0) g/dL 07/31/16 07/31/16 07/31/16 Range/Units 03:36 04:45 04:45 WBC 11.1 H (3.8-10.6) k/uL RBC 4.13 L (4.30-5.90) m/uL Hgb 12.1 L (13.0-17.5) gm/dL MCHC 29.8 L (31.0-37.0) g/dL Plt Count 117 L (150-450) k/uL Neutrophils # 9.4 H (1.3-7.7) k/uL Lymphocytes # 0.7 L (1.0-4.8) k/uL PT (9.0-12.0) sec Sodium 150 H (137-145) mmol/L Chloride 126 H* (98-107) mmol/L Carbon Dioxide 13 L (22-30) mmol/L BUN 68 H (9-20) mg/dL Creatinine 2.50 H (0.66-1.25) mg/dL Glucose 182 H (74-99) mg/dL POC Glucose (mg/dL) 160 H (75-99) mg/dL Calcium 7.5 L (8.4-10.2) mg/dL Magnesium 2.4 H (1.6-2.3) mg/dL Total Protein 4.5 L (6.3-8.2) g/dL Albumin 1.9 L (3.5-5.0) g/dL 07/31/16 07/31/16 07/31/16 Range/Units 04:45 08:03 11:51 WBC (3.8-10.6) k/uL RBC (4.30-5.90) m/uL Hgb (13.0-17.5) gm/dL MCHC (31.0-37.0) g/dL Plt Count (150-450) k/uL Neutrophils # (1.3-7.7) k/uL Lymphocytes # (1.0-4.8) k/uL PT 14.0 H (9.0-12.0) sec Sodium (137-145) mmol/L Chloride (98-107) mmol/L Carbon Dioxide (22-30) mmol/L BUN (9-20) mg/dL Creatinine (0.66-1.25) mg/dL Glucose (74-99) mg/dL POC Glucose (mg/dL) 204 H 173 H (75-99) mg/dL Calcium (8.4-10.2) mg/dL Magnesium (1.6-2.3) mg/dL Total Protein (6.3-8.2) g/dL Albumin (3.5-5.0) g/dL Microbiology - Last 24 Hours (Table) 07/30/16 11:40 Gram Stain - Preliminary Aspirate Body Fluid Culture - Preliminary 07/26/16 19:30 Blood Culture - Preliminary Blood No Growth after 96 hours Assessment and Plan Plan: Septic shock, improving Urinary tract infection, recurrent pseudomonas infection Acute kidney injury, improving Mild anion gap metabolic acidosis Gastroenteritis Cholecystitis, s/p perc drain Hypernatremia/hyperchloremia Lactic acidosis Mild thrombocytosis Coagulopathy of unknown significance Leukocytosis Severe abdominal pain, history of abdominal aortic aneurysm Diarrhea History of coronary artery disease History of hypertension History of Parkinson's Diabetes mellitus type 2 Severe protein calorie malnutrition 8 mm WENDI pulmonary nodule O2 to maintain saturation greater than or equal to 88% Antibiotics: Zosyn Will initiate subcutaneous heparin for DVT prophylaxis now that INR is improved GI prophylaxis with Protonix IV fluids to D5W, increased 225 mL an hour per nephrology 3 A of bicarb to be given per nephrology Check stool for culture and ova and parasites pending PICC line for TPN Discontinue Metoprolol Speech for swallow eval Stool for C. diff is negative Bronchodilators Monitor urine output Chest PT, frequent suctioning, percussion Monitor labs Patient is currently not a surgical candidate, family does not want surgical intervention, continue medical therapy. Overall prognosis is very guarded
[2016-07-31] MEDS ORDERED: LIDOCAINE 2% INJ 20 MG/ML (20 ML MDV) ONE (14:17)
--- NOTE | 2016-07-31 14:22 | P.PN ---
Subjective This is an 85-year-old male with a previous medical history significant for coronary artery disease status post PCI and stent placement, hypertension and hypertensive cardiovascular disease with left ventricular hypertrophy, hyperlipidemia, history of osteoarthritis, history of kidney stones , enlarged prostate, 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 Patient fell again last night about 9:30 she states he started to fall and she helped him to the floor slowly there was no injury. Patient was unable to get up so she laid a blanket on the floor in a pillow and let him sleep here overnight. This morning she called EMS to help him off the floor and wanted him brought to the hospital checked out and hopefully get her some assistance. he was found to have a significant urinary tract infection with sepsis, chest x-ray showed a tiny left lower lobe infiltrate with a left-sided pleural effusion with the nodules in the lung did not change from 2013. Patient was admitted to the hospital urine culture was done as well as blood culture he was placed on IV antibiotic in the form of Levaquin 750 mg IV piggyback every 24 hours subsequently the patient was discharged to [facility] for physical therapy and rehabilitation under Dr. Schofield service, and the patient was sent into the emergency department at [facility] yesterday because of severe sepsis with acute kidney injury and top of chronic kidney disease he was admitted to the intensive care unit, he was given IV fluid he was seen and evaluated by nephrology because of his acute kidney injury , he was started on IV antibiotic in the form of vancomycin he was taken off his Levaquin, unfortunately patient last hospitalization showed Pseudomonas that resistant to fluoroquinolones and the patient was maintained on Levaquin. 07/28: Sodium 148, potassium 3.4, carbon dioxide 16, BUN 17 creatinine 3.3. Patient will be changed to IV fluids of 0.45 normal saline. Blood sugars have been elevated for which Humalog 7030 increased to 18 units twice daily. Patient is currently nothing by mouth except ice chips. Dr. Islas on consult for her CAT scan findings of cholecystitis likely the source of sepsis. Patient is not a surgical candidate and family do not want him to go for surgery. Percutaneous drain is option but INR is elevated. INR today is at 5.7. Dr. Steve is following for acute kidney injury. Dr. Luis is following for intensive care management. Is also having ongoing diarrhea and currently on fecal management system. He is on low-dose levo fed. Patient has been on vancomycin and Zosyn. Flagyl has been added and vancomycin discontinued. 07/29: Patient still remains on Levophed to mics per minute, no surgeries to anticipated for the findings of cholecystitis noted as a source of sepsis, patient has right upper quadrant pain, left lower quadrant pain. Family has been aware off the surgical procedure which they have declined patient remains in ICU multiple specialties on consult 07/30: Patient underwent percutaneous drainage off the gallbladder with cholecystotomy, cultures were sent from bile, patient's more obtunded today leukocytoses and hypertension hypernatremia persist, coagulopathy has been reversed using vitamin K and spontaneous coagulopathy he has improved. Albumin extremely low at 1.9 closely monitored in ICU 07/31: Patient remains in the intensive care unit. He has been started on TPN. PICC line is scheduled for today Patient has been seen by Dr. Robertson from infectious disease with recommendations to continue Zosyn and discontinue metronidazole he has status post 3 A of bicarb. PICC line is scheduled for later today. He is on PPN to be moved over to TPN. Percutaneous drain with 100 mL. Fecal management system draining 500 mL over the past 24 hours. Blood sugars running high for which 7030 increased to 20 units twice daily. Temperature max is 99.2 axillary. Objective - Vital Signs Vital signs: Vital Signs Temp 98.6 F 07/31/16 04:00 Pulse 70 07/31/16 08:36 Resp 24 07/31/16 07:00 BP 122/25 07/31/16 07:00 Pulse Ox 97 07/31/16 07:00 Intake & Output 07/30/16 07/31/16 07/31/16 18:59 06:59 18:59 Intake Total 2570.056 2451 183 Output Total 1205 740 50 Balance 6010.034 8694 133 Weight 103.1 kg 102.5 kg Intake: Intake, IV Titration 2570.056 2451 183 Amount Dextrose 5% in Water 1, 1150 1200 100 000 ml @ 100 mls/hr IV . Q10H LV Rx#:[id number] Fat Emulsion 20% 250 ml @ 168 105 21 mls/hr IV DAILY LV Rx#:[id number] Mvi, Adult No.4 with Vit 250 K 10 ml Trace (Conc-1Ml/ Dose) 1 ml In Amino Acid 4.25%-D10w+Lytes*E* 1,000 ml @ 50 mls/hr IV . [id number] LV Rx#:[id number] Mvi, Adult No.4 with Vit 581 83 K 10 ml Trace (Conc-1Ml/ Dose) 1 ml Potassium Acetate 10 meq Magnesium Sulfate 5 meq Potassium Phosphate 15 mmol Calcium Gluconate 1,000 mg In Amino Acid 4.25%-D10w 1, 000 ml @ 83 mls/hr IV .BY DURATION [facility] Rx#: [id number] Norepinephrine 4 mg In 71.056 Sodium Chloride 0.9% 250 ml @ Titrate IV .Q0M LV Rx#:[id number] Piperacillin-Tazobactam 3 50 50 .375 gm In Dextrose/Water 1 50ml.bag @ 12.5 mls/hr IVPB Q12HR LV Rx#: [id number] Potassium Acetate 10 meq 581 415 Magnesium Sulfate 5 meq Potassium Phosphate 15 mmol Calcium Gluconate 1, 000 mg In Amino Acid 4.25 %-D10w 1,000 ml @ 83 mls/ hr IV .BY DURATION LV Rx #:[id number] Potassium Chloride 20 meq 200 Lidocaine 2% Inj 20 mg In Sodium Chloride 0.9% 100 ml @ 55.5 mls/hr IVPB Q2HR LV Rx#:[id number] metroNIDAZOLE-NS PMX 500 100 100 mg In Saline 1 100ml.bag @ 100 mls/hr IVPB Q8HR LV Rx#:[id number] Output: Drainage 200 Right side, percuaneous 200 biliary drain Urine 705 740 50 Stool 300 Other: Voiding Method Indwelling Catheter Indwelling Catheter - Exam General appearance: average body habitus, severe distress - EENT Eyes: anicteric sclerae, PERRLA, no ptosis, no scleral icterus, normal appearance ENT: hard of hearing, normal oropharynx, no thrush Ears: bilateral: normal - Neck Neck: no lymphadenopathy, normal ROM, no rigidity, no stridor, no thyromegaly Carotids: bilateral: upstroke delayed Thyroid: bilateral: normal size - Respiratory Respiratory: bilateral: diminished, dullness, rales, rhonchi, wheezing, prolonged expiration - Cardiovascular Rhythm: regular Heart sounds: normal: S1, S2 Abnormal Heart Sounds: systolic murmur, no S3 Gallop, no S4 Gallop - Gastrointestinal General gastrointestinal: decreased bowel sounds, distended, rigid, tenderness, no umbilical hernia, no ventral hernia Localized gastrointestinal: tender: diffuse - Integumentary Integumentary: flushed - Neurologic Neurologic: CNII-XII intact - Musculoskeletal Musculoskeletal: generalized weakness, strength equal bilaterally - Psychiatric Psychiatric: no A&O x's 3, no appropriate affect, no intact judgment & insight - Labs CBC & Chem 7: 07/31/16 04:45 07/31/16 04:45 Labs: Abnormal Lab Results - Last 24 Hours (Table) 07/30/16 07/30/16 07/30/16 Range/Units 11:14 16:47 20:15 WBC (3.8-10.6) k/uL RBC (4.30-5.90) m/uL Hgb (13.0-17.5) gm/dL MCHC (31.0-37.0) g/dL Plt Count (150-450) k/uL Neutrophils # (1.3-7.7) k/uL Lymphocytes # (1.0-4.8) k/uL PT (9.0-12.0) sec Sodium (137-145) mmol/L Chloride (98-107) mmol/L Carbon Dioxide (22-30) mmol/L BUN (9-20) mg/dL Creatinine (0.66-1.25) mg/dL Glucose (74-99) mg/dL POC Glucose (mg/dL) 145 H 192 H 230 H (75-99) mg/dL Calcium (8.4-10.2) mg/dL Magnesium (1.6-2.3) mg/dL Total Protein (6.3-8.2) g/dL Albumin (3.5-5.0) g/dL 07/30/16 07/31/16 07/31/16 Range/Units 23:59 03:36 04:45 WBC 11.1 H (3.8-10.6) k/uL RBC 4.13 L (4.30-5.90) m/uL Hgb 12.1 L (13.0-17.5) gm/dL MCHC 29.8 L (31.0-37.0) g/dL Plt Count 117 L (150-450) k/uL Neutrophils # 9.4 H (1.3-7.7) k/uL Lymphocytes # 0.7 L (1.0-4.8) k/uL PT (9.0-12.0) sec Sodium (137-145) mmol/L Chloride (98-107) mmol/L Carbon Dioxide (22-30) mmol/L BUN (9-20) mg/dL Creatinine (0.66-1.25) mg/dL Glucose (74-99) mg/dL POC Glucose (mg/dL) 237 H 160 H (75-99) mg/dL Calcium (8.4-10.2) mg/dL Magnesium (1.6-2.3) mg/dL Total Protein (6.3-8.2) g/dL Albumin (3.5-5.0) g/dL 07/31/16 07/31/16 07/31/16 Range/Units 04:45 04:45 08:03 WBC (3.8-10.6) k/uL RBC (4.30-5.90) m/uL Hgb (13.0-17.5) gm/dL MCHC (31.0-37.0) g/dL Plt Count (150-450) k/uL Neutrophils # (1.3-7.7) k/uL Lymphocytes # (1.0-4.8) k/uL PT 14.0 H (9.0-12.0) sec Sodium 150 H (137-145) mmol/L Chloride 126 H* (98-107) mmol/L Carbon Dioxide 13 L (22-30) mmol/L BUN 68 H (9-20) mg/dL Creatinine 2.50 H (0.66-1.25) mg/dL Glucose 182 H (74-99) mg/dL POC Glucose (mg/dL) 204 H (75-99) mg/dL Calcium 7.5 L (8.4-10.2) mg/dL Magnesium 2.4 H (1.6-2.3) mg/dL Total Protein 4.5 L (6.3-8.2) g/dL Albumin 1.9 L (3.5-5.0) g/dL Microbiology - Last 24 Hours (Table) 07/30/16 11:40 Gram Stain - Preliminary Aspirate Body Fluid Culture - Preliminary 07/26/16 19:30 Blood Culture - Preliminary Blood No Growth after 96 hours Assessment and Plan Plan: 1. Acute cholecystitis and Pseudomonas urinary tract infection with severe sepsis and septic shock status post ultrasound-guided cholecystostomy. ICU, IV fluid resuscitation, Levophed, discontinue Vancomycin, start the patient on Zosyn. Consult w Dr Islas appreciated. Dr. Luis is following for intensive care management. Consult with Dr. Robertson appreciated. Patient is to continue only Zosyn. 2. Leukocytosis secondary to severe sepsis. Continue IV fluid resuscitation, continue IV antibiotic, repeat CBC in the next 24 hours. 3. 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 Continue IV fluid resuscitation, discontinue vancomycin, discontinue Levaquin, continue IV fluid resuscitation, continue Levophed, nephrology consultation, computed tomography scan of the abdomen and pelvis as above. 4. Severe abdominal pain with a prior history of abdominal aortic aneurysm back in 2013. CAT scan as above. 5. Severe diarrhea. Check the stool for C. difficile, toxins a and B, check the stool culture, continue IV fluid resuscitation, discontinue vancomycin. 6. Anion gap metabolic acidosis as well as metabolic alkalosis. Continue IV fluid resuscitation, discontinue diuretics. 7. Lactic acidosis. Due to sepsis, continue IV fluid, continue IV antibiotic, repeat lactic acid in the next 24 hours. 8. CAD post-PCI. Continue aspirin 81 mg once every day, pravastatin 40, bedtime, hold off metoprolol for now. 9. Hypertension and hypertensive cardiovascular disease. Currently hypotensive we'll hold off antihypertensive medicine. 10. Enlarged prostate. Currently has a Burr catheter in place. 11. Parkinsonism. Currently on Sinemet 25/100 one tablet orally twice every day. 12. Diabetes mellitus type 2 with diabetic polyneuropathy. Continue patient on NovoLog Mix 70/30, continue patient on BGM 4 times every day. 13. Coagulopathy due to sepsis. 14. DVT prophylaxis. Heparin held due to coagulopathy. 15. GI prophylaxis. Protonix 40 mg IV push every 24 hours 16. Hypernatremia. 17 No code. Impression and plan of care have been directed as dictated by the signing physician. Linn Joseph nurse practitioner acting as scribe for signing physician. Time with Patient: Greater than 30
[2016-07-31] MEDS ORDERED: HYDROmorphone 1 MG/ML 1 ML SYRINGE IVP STA (14:32)
[2016-07-31] MEDS ORDERED: LIDOCAINE 2% INJ 20 MG/ML SQ ONE (14:58)
--- NOTE | 2016-07-31 15:37 | XR ---
EXAMINATION TYPE: XR chest 1V DATE OF EXAM: 07/31/2016 3:31 PM CLINICAL HISTORY: Difficulty breathing progress study. TECHNIQUE: Single AP portable upright view of the chest is obtained. COMPARISON: Chest x-ray from earlier today FINDINGS: Current exam is suboptimal due to not including entire lung apices as well as underpenetra tion, portable technique, and patient's body habitus. There are persistent low lung volumes with patc hy bibasilar atelectasis and/or infiltrate felt present. No large pleural effusion or pneumothorax is present. Cardiac silhouette size is stable and upper limits of normal with atherosclerotic thoracic aorta. Visualized osseous structures are intact. IMPRESSION: Suboptimal study, there is low lung volumes with patchy bibasilar atelectasis and/or infi ltrate redemonstrated.
--- NOTE | 2016-07-31 15:40 | IR ---
EXAMINATION TYPE: IR cvc insert >=5 years DATE OF EXAM: 07/31/2016 3:28 PM COMPARISON: NONE HISTORY: Sepsis, cholecystitis FINDINGS: Maximal barrier technique was utilized. The skin overlying the right basilic vein was loca lized with ultrasound and noted to be compressible and patent by ultrasound. An ultrasound image was obtained and submitted on patient's chart. Sterile technique utilized with the ultrasound machine. T he skin overlying was prepped and draped and Lidocaine used for local anesthesia. A skin shannon was ma de with a scalpel. Access was gained to the vein under direct ultrasound guidance with a 21-gauge ne edle and a 0.018 inch wire was advanced. Access site was dilated with a peel-away sheath and the cat heter tailored to length. Catheter advanced centrally and a post procedure chest x-ray verified plac ement. Catheter was fixed to the skin with suture and a sterile dressing placed. Hemostasis achieve d and the catheter was aspirated and flushed with sterile saline. The patient remained in stable con dition. Follow-up chest x-ray shows the catheter overlying appropriate position coursing towards the right atrium. IMPRESSION: STATUS POST ULTRASOUND GUIDED PICC LINE PLACEMENT, READY FOR USE. THIS PROCEDURE WAS PER FORMED BY THE UNDERSIGNED.
[2016-07-31 16:02] LABS: Calcium 7.2 mg/dL (8.4-10.2); Potassium 3.8 mmol/L (3.5-5.1)
[2016-07-31] MEDS: HEPARIN SODIUM,PORCINE 5,000 UNIT/ML 1 ML VIAL SQ SCH (16:42)
[2016-07-31 16:48] LABS: Glucose,Whole Blood 174 mg/dL (75-99)
[2016-07-31 16:48] LABS: Glucose,Whole Blood 212 mg/dL (75-99)
[2016-07-31] MEDS ORDERED: hydrALAZINE HCL 20 MG/ML 1 ML VIAL IVP PRN (17:14)
--- NOTE | 2016-07-31 17:54 | P.PN ---
Subjective Principal diagnosis: Cholecystitis Patient per the nursing staff is doing better today. Currently he is somewhat lethargic however compared to yesterday he is more alert. He no longer is on Levophed. His white blood cell count is improved. Urine output also has improved. Degree of discomfort is difficult to ascertain. NICK drain is bilious. Objective - Vital Signs Vital signs: Vital Signs Temp 99.2 F 07/31/16 08:00 Pulse 73 07/31/16 16:30 Resp 19 07/31/16 16:30 BP 138/56 07/31/16 16:30 Pulse Ox 93 L 07/31/16 16:30 Intake & Output 07/30/16 07/31/16 07/31/16 18:59 06:59 18:59 Intake Total 2570.056 2451 1465 Output Total 1205 740 525 Balance 0059.483 4236 940 Weight 103.1 kg 102.5 kg 102.5 kg Intake: Intake, IV Titration 2570.056 2451 1465 Amount Dextrose 5% in Water 1, 1150 1200 800 000 ml @ 125 mls/hr IV . Q8H [facility] Rx#:[id number] Fat Emulsion 20% 250 ml @ 168 105 21 mls/hr IV DAILY [facility] Rx#:[id number] Mvi, Adult No.4 with Vit 250 K 10 ml Trace (Conc-1Ml/ Dose) 1 ml In Amino Acid 4.25%-D10w+Lytes*E* 1,000 ml @ 50 mls/hr IV . [id number] [facility] Rx#:[id number] Mvi, Adult No.4 with Vit 581 415 K 10 ml Trace (Conc-1Ml/ Dose) 1 ml Potassium Acetate 10 meq Magnesium Sulfate 5 meq Potassium Phosphate 15 mmol Calcium Gluconate 1,000 mg In Amino Acid 4.25%-D10w 1, 000 ml @ 83 mls/hr IV .BY DURATION [facility] Rx#: [id number] Norepinephrine 4 mg In 71.056 Sodium Chloride 0.9% 250 ml @ Titrate IV .Q0M [facility] Rx#:[id number] Piperacillin-Tazobactam 3 50 50 50 .375 gm In Dextrose/Water 1 50ml.bag @ 12.5 mls/hr IVPB Q12HR [facility] Rx#: [id number] Potassium Acetate 10 meq 581 415 Magnesium Sulfate 5 meq Potassium Phosphate 15 mmol Calcium Gluconate 1, 000 mg In Amino Acid 4.25 %-D10w 1,000 ml @ 83 mls/ hr IV .BY DURATION [facility] Rx #:[id number] Potassium Chloride 20 meq 200 100 Lidocaine 2% Inj 20 mg In Sodium Chloride 0.9% 100 ml @ 55.5 mls/hr IVPB Q2HR [facility] Rx#:[id number] metroNIDAZOLE-NS PMX 500 100 100 100 mg In Saline 1 100ml.bag @ 100 mls/hr IVPB Q8HR [facility] Rx#:[id number] Output: Drainage 200 Right side, percuaneous 200 biliary drain Urine 705 740 425 Stool 300 100 Other: Voiding Method Indwelling Catheter Indwelling Catheter Indwelling Catheter - Exam Abdomen: Soft, nondistended, diffuse tenderness mild - Labs CBC & Chem 7: 07/31/16 04:45 07/31/16 15:37 Labs: Abnormal Lab Results - Last 24 Hours (Table) 07/30/16 07/30/16 07/31/16 Range/Units 20:15 23:59 03:36 WBC (3.8-10.6) k/uL RBC (4.30-5.90) m/uL Hgb (13.0-17.5) gm/dL MCHC (31.0-37.0) g/dL Plt Count (150-450) k/uL Neutrophils # (1.3-7.7) k/uL Lymphocytes # (1.0-4.8) k/uL PT (9.0-12.0) sec Sodium (137-145) mmol/L Chloride (98-107) mmol/L Carbon Dioxide (22-30) mmol/L BUN (9-20) mg/dL Creatinine (0.66-1.25) mg/dL Glucose (74-99) mg/dL POC Glucose (mg/dL) 230 H 237 H 160 H (75-99) mg/dL Calcium (8.4-10.2) mg/dL Magnesium (1.6-2.3) mg/dL Total Protein (6.3-8.2) g/dL Albumin (3.5-5.0) g/dL 07/31/16 07/31/16 07/31/16 Range/Units 04:45 04:45 04:45 WBC 11.1 H (3.8-10.6) k/uL RBC 4.13 L (4.30-5.90) m/uL Hgb 12.1 L (13.0-17.5) gm/dL MCHC 29.8 L (31.0-37.0) g/dL Plt Count 117 L (150-450) k/uL Neutrophils # 9.4 H (1.3-7.7) k/uL Lymphocytes # 0.7 L (1.0-4.8) k/uL PT 14.0 H (9.0-12.0) sec Sodium 150 H (137-145) mmol/L Chloride 126 H* (98-107) mmol/L Carbon Dioxide 13 L (22-30) mmol/L BUN 68 H (9-20) mg/dL Creatinine 2.50 H (0.66-1.25) mg/dL Glucose 182 H (74-99) mg/dL POC Glucose (mg/dL) (75-99) mg/dL Calcium 7.5 L (8.4-10.2) mg/dL Magnesium 2.4 H (1.6-2.3) mg/dL Total Protein 4.5 L (6.3-8.2) g/dL Albumin 1.9 L (3.5-5.0) g/dL 07/31/16 07/31/16 07/31/16 Range/Units 08:03 11:51 15:37 WBC (3.8-10.6) k/uL RBC (4.30-5.90) m/uL Hgb (13.0-17.5) gm/dL MCHC (31.0-37.0) g/dL Plt Count (150-450) k/uL Neutrophils # (1.3-7.7) k/uL Lymphocytes # (1.0-4.8) k/uL PT (9.0-12.0) sec Sodium 152 H (137-145) mmol/L Chloride 122 H* (98-107) mmol/L Carbon Dioxide 20 L (22-30) mmol/L BUN 64 H (9-20) mg/dL Creatinine 2.35 H (0.66-1.25) mg/dL Glucose 178 H (74-99) mg/dL POC Glucose (mg/dL) 204 H 173 H (75-99) mg/dL Calcium 7.2 L (8.4-10.2) mg/dL Magnesium (1.6-2.3) mg/dL Total Protein (6.3-8.2) g/dL Albumin (3.5-5.0) g/dL 07/31/16 07/31/16 Range/Units 16:45 16:46 WBC (3.8-10.6) k/uL RBC (4.30-5.90) m/uL Hgb (13.0-17.5) gm/dL MCHC (31.0-37.0) g/dL Plt Count (150-450) k/uL Neutrophils # (1.3-7.7) k/uL Lymphocytes # (1.0-4.8) k/uL PT (9.0-12.0) sec Sodium (137-145) mmol/L Chloride (98-107) mmol/L Carbon Dioxide (22-30) mmol/L BUN (9-20) mg/dL Creatinine (0.66-1.25) mg/dL Glucose (74-99) mg/dL POC Glucose (mg/dL) 212 H 174 H (75-99) mg/dL Calcium (8.4-10.2) mg/dL Magnesium (1.6-2.3) mg/dL Total Protein (6.3-8.2) g/dL Albumin (3.5-5.0) g/dL Microbiology - Last 24 Hours (Table) 07/30/16 11:40 Gram Stain - Preliminary Aspirate Body Fluid Culture - Preliminary 07/26/16 19:30 Blood Culture - Preliminary Blood No Growth after 96 hours Assessment and Plan (1) Acute cholecystitis Narrative/Plan: Continue IV antibiotics. Continue cholecystostomy tube to drainage. Will follow with you. Status: Acute
[2016-07-31] MEDS ORDERED: POTASSIUM CHLORIDE 20 MEQ in WATER FOR INJECTION 1 100ML.BAG IVPB ONE (20:30)
[2016-07-31 20:35] LABS: Glucose,Whole Blood 182 mg/dL (75-99)
[2016-07-31 23:56] LABS: Glucose,Whole Blood 227 mg/dL (75-99)
[2016-08-01] MEDS: HEPARIN SODIUM,PORCINE 5,000 UNIT/ML 1 ML VIAL SQ SCH ×3 (00:37→16:58)
[2016-08-01] MEDS: INSULIN LISPRO (humaLOG) 300 UNIT/3 ML VIAL SQ SCH ×6 (00:37→21:22)
[2016-08-01] MEDS: PIPERACILLIN-TAZOBACTAM 3.375 GM in DEXTROSE/WATER 1 50ML.BAG IVPB SCH ×3 (00:41→16:58)
[2016-08-01] MEDS: metroNIDAZOLE-NS PMX 500 MG in SALINE 1 100ML.BAG IVPB SCH ×2 (00:41→10:12)
[2016-08-01 04:35] LABS: Glucose,Whole Blood 211 mg/dL (75-99)
[2016-08-01 05:41] LABS: Ionized Calcium 4.9 mg/dL (4.5-5.3)
[2016-08-01 05:50] LABS: Calcium 7.1 mg/dL (8.4-10.2); Magnesium 1.9 mg/dL (1.6-2.3); Phosphorous 2.6 mg/dL (2.5-4.5); Potassium 3.9 mmol/L (3.5-5.1); Total Bilirubin 0.4 mg/dL (0.2-1.3); Total Protein 4.4 g/dL (6.3-8.2)
[2016-08-01] MEDS: DEXTROSE 5% IN WATER 1,000 ML IV SCH ×4 (06:47→23:07)
[2016-08-01 06:58] LABS: CH 29.6; CHCM 31.4; HCT 34.7 % (39.0-53.0); HDW 2.99; Hypochromasia Slight; MCH 30.1 pg (25.0-35.0); MCHC 31.6 g/dL (31.0-37.0); MCV 95.1 fL (80.0-100.0); Mean Platelet Volume 9.9; RBC 3.65 m/uL (4.30-5.90); RDW 15.5 % (11.5-15.5); WBC 9.2 k/uL (3.8-10.6)
[2016-08-01] MEDS: IPRATROPIUM-ALBUTEROL 3 ML NEB INHALATION SCH ×4 (07:11→20:02)
[2016-08-01 07:47] LABS: Glucose,Whole Blood 226 mg/dL (75-99)
[2016-08-01] MEDS: CYANOCOBALAMIN 500 MCG TAB PO SCH (08:14)
[2016-08-01] MEDS: CARBIDOPA-LEVODOPA 25-100 MG 1 EACH TAB PO SCH ×2 (08:14→21:23)
[2016-08-01] MEDS: PANTOPRAZOLE 40 MG/10 ML VIAL IV SCH (08:28)
--- NOTE | 2016-08-01 08:36 | XR ---
EXAMINATION TYPE: XR chest 1V portable DATE OF EXAM: 08/01/2016 6:49 AM COMPARISON: NONE INDICATION: Short of breath TECHNIQUE: Single frontal view of the chest is obtained. FINDINGS: The heart size is normal. The pulmonary vasculature is normal. Subtle atelectasis at the left base. Lungs are otherwise clear. PICC line enters on the right with the tip in the region of the right atrium. EKG leads overlie the c hest. IMPRESSION: 1. Minimal left basilar atelectasis.
[2016-08-01] MEDS: FAT EMULSION 20% 250 ML IV SCH (09:44)
[2016-08-01] MEDS: INSULN ASP PRT/INSULIN ASPART 100 UNIT/ML 10 ML VIAL SQ SCH ×2 (09:47→21:29)
[2016-08-01 10:19] VITALS: BMI 29.6
[2016-08-01] MEDS ORDERED: SODIUM BICARB 8.4% 50 ML SYR (1 MEQ/ML) IV STA (10:59)
--- NOTE | 2016-08-01 10:59 | P.PN ---
Subjective Patient is seen in follow-up for acute kidney injury. Renal function is improving with creatinine down to 2.13 today. Hemodynamically he stable. Sodium level is down to 147. Bicarb level is also improved to 19. He is currently receiving PPN. He did have a cholecystostomy tube placed this admission for acute cholangitis. Output from the drain has been decreasing. Patient is quite lethargic. He is nonoliguric. Vital signs are stable. General: The patient appeared well nourished and normally developed. HEENT: Head exam is unremarkable. Neck is without jugular venous distension. LUNGS: Lungs are clear to auscultation and percussion. Breath sounds decreased. HEART: Rate and Rhythm are regular. First and second heart sounds normal. No murmurs, rubs or gallops. ABDOMEN: Abdominal exam reveals normal bowel sounds. Non-tender and non- distended. No evidence of peritonitis. EXTREMITITES: No clubbing, cyanosis, or edema. Objective - Vital Signs Vital signs: Vital Signs Temp 99 F 08/01/16 04:00 Pulse 70 08/01/16 10:00 Resp 24 08/01/16 10:00 BP 131/55 08/01/16 10:00 Pulse Ox 96 08/01/16 10:00 Intake & Output 07/31/16 08/01/16 08/01/16 18:59 06:59 18:59 Intake Total 2322 2914.0 950 Output Total 2883 295 5110 Balance 1222 1929.0 -185 Weight 102.5 kg 104.8 kg 104.8 kg Intake: Intake, IV Titration 2322 2914.0 950 Amount Dextrose 5% in Water 1, 1175 1500 625 000 ml @ 125 mls/hr IV . Q8H [facility] Rx#:[id number] Fat Emulsion 20% 250 ml @ 168 42 21 mls/hr IV DAILY [facility] Rx#:[id number] Mvi, Adult No.4 with Vit 581 K 10 ml Trace (Conc-1Ml/ Dose) 1 ml Potassium Acetate 10 meq Magnesium Sulfate 5 meq Potassium Phosphate 15 mmol Calcium Gluconate 1,000 mg In Amino Acid 4.25%-D10w 1, 000 ml @ 83 mls/hr IV .BY DURATION [facility] Rx#: [id number] Piperacillin-Tazobactam 3 100 .375 gm In Dextrose/Water 1 50ml.bag @ 12.5 mls/hr IVPB Q12HR [facility] Rx#: [id number] Piperacillin-Tazobactam 3 50.0 100 .375 gm In Dextrose/Water 1 50ml.bag @ 12.5 mls/hr IVPB Q8HR [facility] Rx#: [id number] Potassium Acetate 16 meq 166 996 83 Magnesium Sulfate 4 meq Potassium Phosphate 10 mmol Calcium Gluconate 1, 000 mg In Amino Acid 4.25 %-D10w 1,000 ml @ 83 mls/ hr IV .BY DURATION [facility] Rx #:[id number] Potassium Chloride 20 meq 100 In Water For Injection 1 100ml.bag @ 50 mls/hr IVPB ONCE ONE Rx#: [id number] Potassium Chloride 20 meq 100 Lidocaine 2% Inj 20 mg In Sodium Chloride 0.9% 100 ml @ 55.5 mls/hr IVPB Q2HR [facility] Rx#:[id number] metroNIDAZOLE-NS PMX 500 200 100 100 mg In Saline 1 100ml.bag @ 100 mls/hr IVPB Q8HR [facility] Rx#:[id number] Output: Gastric Drainage 200 Urine 700 785 335 Stool 400 400 Urine/Stool Mix 400 Other: Voiding Method Indwelling Catheter Indwelling Catheter Indwelling Catheter - Labs CBC & Chem 7: 08/01/16 04:57 08/01/16 04:57 Labs: Abnormal Lab Results - Last 24 Hours (Table) 07/31/16 07/31/16 07/31/16 Range/Units 11:51 15:37 16:45 RBC (4.30-5.90) m/uL Hgb (13.0-17.5) gm/dL Hct (39.0-53.0) % Plt Count (150-450) k/uL Sodium 152 H (137-145) mmol/L Chloride 122 H* (98-107) mmol/L Carbon Dioxide 20 L (22-30) mmol/L BUN 64 H (9-20) mg/dL Creatinine 2.35 H (0.66-1.25) mg/dL Glucose 178 H (74-99) mg/dL POC Glucose (mg/dL) 173 H 212 H (75-99) mg/dL Calcium 7.2 L (8.4-10.2) mg/dL Total Protein (6.3-8.2) g/dL Albumin (3.5-5.0) g/dL 07/31/16 07/31/16 07/31/16 Range/Units 16:46 20:30 23:53 RBC (4.30-5.90) m/uL Hgb (13.0-17.5) gm/dL Hct (39.0-53.0) % Plt Count (150-450) k/uL Sodium (137-145) mmol/L Chloride (98-107) mmol/L Carbon Dioxide (22-30) mmol/L BUN (9-20) mg/dL Creatinine (0.66-1.25) mg/dL Glucose (74-99) mg/dL POC Glucose (mg/dL) 174 H 182 H 227 H (75-99) mg/dL Calcium (8.4-10.2) mg/dL Total Protein (6.3-8.2) g/dL Albumin (3.5-5.0) g/dL 08/01/16 08/01/16 08/01/16 Range/Units 04:33 04:57 04:57 RBC 3.65 L (4.30-5.90) m/uL Hgb 11.0 L (13.0-17.5) gm/dL Hct 34.7 L (39.0-53.0) % Plt Count 118 L (150-450) k/uL Sodium 147 H (137-145) mmol/L Chloride 119 H (98-107) mmol/L Carbon Dioxide 19 L (22-30) mmol/L BUN 58 H (9-20) mg/dL Creatinine 2.13 H (0.66-1.25) mg/dL Glucose 213 H (74-99) mg/dL POC Glucose (mg/dL) 211 H (75-99) mg/dL Calcium 7.1 L (8.4-10.2) mg/dL Total Protein 4.4 L (6.3-8.2) g/dL Albumin 1.8 L (3.5-5.0) g/dL 08/01/16 Range/Units 07:40 RBC (4.30-5.90) m/uL Hgb (13.0-17.5) gm/dL Hct (39.0-53.0) % Plt Count (150-450) k/uL Sodium (137-145) mmol/L Chloride (98-107) mmol/L Carbon Dioxide (22-30) mmol/L BUN (9-20) mg/dL Creatinine (0.66-1.25) mg/dL Glucose (74-99) mg/dL POC Glucose (mg/dL) 226 H (75-99) mg/dL Calcium (8.4-10.2) mg/dL Total Protein (6.3-8.2) g/dL Albumin (3.5-5.0) g/dL Microbiology - Last 24 Hours (Table) 07/26/16 19:30 Blood Culture - Preliminary Blood No Growth after 120 hours 07/29/16 10:43 Stool Culture - Preliminary Stool 07/30/16 11:40 Gram Stain - Preliminary Aspirate Body Fluid Culture - Preliminary Assessment and Plan Plan: Assessment: #1. Nonoliguric acute kidney injury secondary to hemodynamic instability and sepsis. Renal function improving with creatinine down to 2.13 today. #2. Severe sepsis secondary to acute cholangitis as well as UTI. #3. Hypernatremia secondary to lack of oral water intake. Sodium level 147 today. #4. Hyperchloremic metabolic acidosis secondary to acute kidney injury and GI losses. #5. Severe protein calorie malnutrition. Plan: Maintain D5W to be run at 125 mL an hour. 1 A of sodium bicarbonate IV push. Acetate to be added to TPN feedings. Avoid nephrotoxic agents and hypotensive episodes. Repeat electrolytes in the morning.
[2016-08-01] MEDS: FUROSEMIDE 10 MG/ML 4 ML VIAL IV SCH ×2 (11:47→21:23)
[2016-08-01] MEDS: POTASSIUM CHLORIDE 20 MEQ in WATER FOR INJECTION 1 100ML.BAG IVPB SCH (11:47)
[2016-08-01] MEDS: 1: MVI, ADULT NO.4 WITH VIT K 10 ML, TRACE (CONC-1ML/DOSE) 1 ML, POTASSIUM ACETATE 20 ME IV SCH ×14 (11:47→23:07)
[2016-08-01] MEDS: ALBUMIN HUMAN 25% 50 ML in EMPTY BAG 1 BAG IVPB SCH ×2 (11:56→13:01)
[2016-08-01 12:11] LABS: Glucose,Whole Blood 125 mg/dL (75-99)
--- NOTE | 2016-08-01 12:17 | ECHOF ---
Referral Reason:chf MEASUREMENTS -------- HEIGHT: 182.9 cm WEIGHT: 104.8 kg BP: 119/48 IVSd: 1.3 cm (0.6 - 1.1) LVIDd: 4.1 cm (3.9 - 5.3) LVPWd: 1.2 cm (0.6 - 1.1) IVSs: 1.4 cm LVIDs: 2.1 cm LVPWs: 1.6 cm Ao Diam: 3.5 cm (2.0 - 3.7) AV Cusp: 1.6 cm (1.5 - 2.6) LA Diam: 4.5 cm (2.7 - 3.8) MV EXCURSION: 8.590 mm (> 18.000) MV EF SLOPE: 22 mm/s (70 - 150) EPSS: 1.1 cm MV E Sy: 1.06 m/s MV DecT: 256 ms MV A Sy: 1.26 m/s MV E/A Ratio: 0.84 RAP: 5.00 mmHg RVSP: 13.38 mmHg FINDINGS -------- Sinus rhythm with extra systolic beats. This was a technically difficult study with suboptimal views. There is mild concentric left ventricular hypertrophy. Overall left ventricular systolic function is low-normal with, an EF between 50 - 55 %. The right ventricle is normal in size and function. The left atrium is normal in size. The right atrium is normal in size. Aortic valve is trileaflet and is mildly thickened. The mitral valve leaflets are mildly thickened. Mild mitral annular calcification present. Mild mitral regurgitation is present. Mild tricuspid regurgitation present. The right ventricular systolic pressure, as measured by Doppler, is 13.38mmHg. Pulmonic valve appears structurally normal. The aortic root, ascending aorta and aortic arch are normal. The pericardium is normal. CONCLUSIONS -------- 1. Sinus rhythm with extra systolic beats. 2. Mild mitral annular calcification present. 3. Mild mitral regurgitation is present. 4. Mild tricuspid regurgitation present. 5. The right ventricular systolic pressure, as measured by Doppler, is 13.38mmHg. 6. Pulmonic valve appears structurally normal. 7. The aortic root, ascending aorta and aortic arch are normal. 8. The pericardium is normal. 9. This was a technically difficult study with suboptimal views. 10. There is mild concentric left ventricular hypertrophy. 11. Overall left ventricular systolic function is low-normal with, an EF between 50 - 55 %. 12. The right ventricle is normal in size and function. 13. The left atrium is normal in size. 14. The right atrium is normal in size. 15. Aortic valve is trileaflet and is mildly thickened. 16. The mitral valve leaflets are mildly thickened. DIRECTOR OF TRANSPORTATION: Ria Faustin RDCS
--- NOTE | 2016-08-01 13:11 | P.PN ---
Subjective Principal diagnosis: Cholecystitis Patient remains lethargic. Having trouble controlling his own secretions. Biliary drain unchanged. Cultures from the biliary drain are negative. He remains off of pressors. Objective - Vital Signs Vital signs: Vital Signs Temp 98.9 F 08/01/16 12:00 Pulse 68 08/01/16 13:00 Resp 26 H 08/01/16 13:00 BP 149/58 08/01/16 13:00 Pulse Ox 95 08/01/16 13:00 Intake & Output 07/31/16 08/01/16 08/01/16 18:59 06:59 18:59 Intake Total 2322 2914.0 1517 Output Total 6746 651 9941 Balance 1222 1929.0 -23 Weight 102.5 kg 104.8 kg 104.8 kg Intake: IV 200 Mvi, Adult No.4 with Vit 200 K 10 ml Trace (Conc-1Ml/ Dose) 1 ml Potassium Acetate 20 meq Potassium Phosphate 10 mmol Calcium Gluconate 1,000 mg In Amino Acid 5%-D15w 1,000 ml @ 100 mls/hr IV .BY DURATION [facility] Rx#: [id number] Intake, IV Titration 2322 2914.0 1317 Amount Albumin Human 25% 50 ml 100 In Empty Bag 1 bag @ 100 mls/hr IVPB Q12H [facility] Rx#: [id number] Dextrose 5% in Water 1, 1175 1500 750 000 ml @ 125 mls/hr IV . Q8H [facility] Rx#:[id number] Fat Emulsion 20% 250 ml @ 168 84 21 mls/hr IV DAILY [facility] Rx#:[id number] Mvi, Adult No.4 with Vit 581 K 10 ml Trace (Conc-1Ml/ Dose) 1 ml Potassium Acetate 10 meq Magnesium Sulfate 5 meq Potassium Phosphate 15 mmol Calcium Gluconate 1,000 mg In Amino Acid 4.25%-D10w 1, 000 ml @ 83 mls/hr IV .BY DURATION [facility] Rx#: [id number] Piperacillin-Tazobactam 3 100 .375 gm In Dextrose/Water 1 50ml.bag @ 12.5 mls/hr IVPB Q12HR [facility] Rx#: [id number] Piperacillin-Tazobactam 3 50.0 100 .375 gm In Dextrose/Water 1 50ml.bag @ 12.5 mls/hr IVPB Q8HR [facility] Rx#: [id number] Potassium Acetate 16 meq 166 996 83 Magnesium Sulfate 4 meq Potassium Phosphate 10 mmol Calcium Gluconate 1, 000 mg In Amino Acid 4.25 %-D10w 1,000 ml @ 83 mls/ hr IV .BY DURATION [facility] Rx #:[id number] Potassium Chloride 20 meq 100 In Water For Injection 1 100ml.bag @ 50 mls/hr IVPB ONCE ONE Rx#: [id number] Potassium Chloride 20 meq 100 In Water For Injection 1 100ml.bag @ 50 mls/hr IVPB Q12H [facility] Rx#: [id number] Potassium Chloride 20 meq 100 Lidocaine 2% Inj 20 mg In Sodium Chloride 0.9% 100 ml @ 55.5 mls/hr IVPB Q2HR [facility] Rx#:[id number] metroNIDAZOLE-NS PMX 500 200 100 100 mg In Saline 1 100ml.bag @ 100 mls/hr IVPB Q8HR [facility] Rx#:[id number] Output: Gastric Drainage 200 Urine 700 785 740 Stool 400 400 Urine/Stool Mix 400 Other: Voiding Method Indwelling Catheter Indwelling Catheter Indwelling Catheter - Exam Abdomen: Soft, diffuse tenderness noted essentially unchanged, nondistended - Labs CBC & Chem 7: 08/01/16 04:57 08/01/16 04:57 Labs: Abnormal Lab Results - Last 24 Hours (Table) 07/31/16 07/31/16 07/31/16 Range/Units 15:37 16:45 16:46 RBC (4.30-5.90) m/uL Hgb (13.0-17.5) gm/dL Hct (39.0-53.0) % Plt Count (150-450) k/uL Sodium 152 H (137-145) mmol/L Chloride 122 H* (98-107) mmol/L Carbon Dioxide 20 L (22-30) mmol/L BUN 64 H (9-20) mg/dL Creatinine 2.35 H (0.66-1.25) mg/dL Glucose 178 H (74-99) mg/dL POC Glucose (mg/dL) 212 H 174 H (75-99) mg/dL Calcium 7.2 L (8.4-10.2) mg/dL Total Protein (6.3-8.2) g/dL Albumin (3.5-5.0) g/dL 07/31/16 07/31/16 08/01/16 Range/Units 20:30 23:53 04:33 RBC (4.30-5.90) m/uL Hgb (13.0-17.5) gm/dL Hct (39.0-53.0) % Plt Count (150-450) k/uL Sodium (137-145) mmol/L Chloride (98-107) mmol/L Carbon Dioxide (22-30) mmol/L BUN (9-20) mg/dL Creatinine (0.66-1.25) mg/dL Glucose (74-99) mg/dL POC Glucose (mg/dL) 182 H 227 H 211 H (75-99) mg/dL Calcium (8.4-10.2) mg/dL Total Protein (6.3-8.2) g/dL Albumin (3.5-5.0) g/dL 08/01/16 08/01/16 08/01/16 Range/Units 04:57 04:57 07:40 RBC 3.65 L (4.30-5.90) m/uL Hgb 11.0 L (13.0-17.5) gm/dL Hct 34.7 L (39.0-53.0) % Plt Count 118 L (150-450) k/uL Sodium 147 H (137-145) mmol/L Chloride 119 H (98-107) mmol/L Carbon Dioxide 19 L (22-30) mmol/L BUN 58 H (9-20) mg/dL Creatinine 2.13 H (0.66-1.25) mg/dL Glucose 213 H (74-99) mg/dL POC Glucose (mg/dL) 226 H (75-99) mg/dL Calcium 7.1 L (8.4-10.2) mg/dL Total Protein 4.4 L (6.3-8.2) g/dL Albumin 1.8 L (3.5-5.0) g/dL 08/01/16 Range/Units 12:10 RBC (4.30-5.90) m/uL Hgb (13.0-17.5) gm/dL Hct (39.0-53.0) % Plt Count (150-450) k/uL Sodium (137-145) mmol/L Chloride (98-107) mmol/L Carbon Dioxide (22-30) mmol/L BUN (9-20) mg/dL Creatinine (0.66-1.25) mg/dL Glucose (74-99) mg/dL POC Glucose (mg/dL) 125 H (75-99) mg/dL Calcium (8.4-10.2) mg/dL Total Protein (6.3-8.2) g/dL Albumin (3.5-5.0) g/dL Microbiology - Last 24 Hours (Table) 07/26/16 19:30 Blood Culture - Preliminary Blood No Growth after 120 hours 07/29/16 10:43 Stool Culture - Preliminary Stool 07/30/16 11:40 Gram Stain - Preliminary Aspirate Body Fluid Culture - Preliminary Assessment and Plan (1) Acute cholecystitis Narrative/Plan: Agree with consideration for comfort measures given the patient's inability to improve despite the aggressive medical and interventional radiology involvement. Continue antibiotics. Will follow. Status: Acute
--- NOTE | 2016-08-01 14:47 | P.PN ---
Subjective This is an 85-year-old male with a previous medical history significant for coronary artery disease status post PCI and stent placement, hypertension and hypertensive cardiovascular disease with left ventricular hypertrophy, hyperlipidemia, history of osteoarthritis, history of kidney stones , enlarged prostate, 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 Patient fell again last night about 9:30 she states he started to fall and she helped him to the floor slowly there was no injury. Patient was unable to get up so she laid a blanket on the floor in a pillow and let him sleep here overnight. This morning she called EMS to help him off the floor and wanted him brought to the hospital checked out and hopefully get her some assistance. he was found to have a significant urinary tract infection with sepsis, chest x-ray showed a tiny left lower lobe infiltrate with a left-sided pleural effusion with the nodules in the lung did not change from 2013. Patient was admitted to the hospital urine culture was done as well as blood culture he was placed on IV antibiotic in the form of Levaquin 750 mg IV piggyback every 24 hours subsequently the patient was discharged to [facility] for physical therapy and rehabilitation under Dr. Schofield service, and the patient was sent into the emergency department at [facility] yesterday because of severe sepsis with acute kidney injury and top of chronic kidney disease he was admitted to the intensive care unit, he was given IV fluid he was seen and evaluated by nephrology because of his acute kidney injury , he was started on IV antibiotic in the form of vancomycin he was taken off his Levaquin, unfortunately patient last hospitalization showed Pseudomonas that resistant to fluoroquinolones and the patient was maintained on Levaquin. 07/28: Sodium 148, potassium 3.4, carbon dioxide 16, BUN 17 creatinine 3.3. Patient will be changed to IV fluids of 0.45 normal saline. Blood sugars have been elevated for which Humalog 7030 increased to 18 units twice daily. Patient is currently nothing by mouth except ice chips. Dr. Islas on consult for her CAT scan findings of cholecystitis likely the source of sepsis. Patient is not a surgical candidate and family do not want him to go for surgery. Percutaneous drain is option but INR is elevated. INR today is at 5.7. Dr. Steve is following for acute kidney injury. Dr. Luis is following for intensive care management. Is also having ongoing diarrhea and currently on fecal management system. He is on low-dose levo fed. Patient has been on vancomycin and Zosyn. Flagyl has been added and vancomycin discontinued. 07/29: Patient still remains on Levophed to mics per minute, no surgeries to anticipated for the findings of cholecystitis noted as a source of sepsis, patient has right upper quadrant pain, left lower quadrant pain. Family has been aware off the surgical procedure which they have declined patient remains in ICU multiple specialties on consult 07/30: Patient underwent percutaneous drainage off the gallbladder with cholecystotomy, cultures were sent from bile, patient's more obtunded today leukocytoses and hypertension hypernatremia persist, coagulopathy has been reversed using vitamin K and spontaneous coagulopathy he has improved. Albumin extremely low at 1.9 closely monitored in ICU 07/31: Patient remains in the intensive care unit. He has been started on TPN. PICC line is scheduled for today Patient has been seen by Dr. Robertson from infectious disease with recommendations to continue Zosyn and discontinue metronidazole he has status post 3 A of bicarb. PICC line is scheduled for later today. He is on PPN to be moved over to TPN. Percutaneous drain with 100 mL. Fecal management system draining 500 mL over the past 24 hours. Blood sugars running high for which 7030 increased to 20 units twice daily. Temperature max is 99.2 axillary. 08/01: Patient remains in intensive care unit with third space seen noted. Albumin 1.8. Albumin 3 doses and Lasix 40 mg every 12 hours 3 doses added. He is on TPN. PICC line was placed yesterday. Cultures from the biliary drain are negative. Temperature max 99.7. He has been off vasopressors. Sodium 147 , chloride 119, CO2 19. Sodium bicarbonate ordered by nephrology. BUN 15 creatinine 2.13. Echocardiogram reveals mild mitral regurgitation, mild tricuspid regurgitation, mild concentric left ventricular hypertrophy, EF 50-55% . Objective - Vital Signs Vital signs: Vital Signs Temp 99.2 F 07/31/16 08:00 Pulse 79 07/31/16 14:00 Resp 24 07/31/16 14:00 BP 145/53 07/31/16 14:00 Pulse Ox 96 07/31/16 14:00 Intake & Output 07/30/16 07/31/16 07/31/16 18:59 06:59 18:59 Intake Total 2570.056 2451 1257 Output Total 1205 740 415 Balance 1265.275 2575 842 Weight 103.1 kg 102.5 kg 102.5 kg Intake: Intake, IV Titration 2570.056 2451 1257 Amount Dextrose 5% in Water 1, 1150 1200 675 000 ml @ 125 mls/hr IV . Q8H [facility] Rx#:[id number] Fat Emulsion 20% 250 ml @ 168 105 21 mls/hr IV DAILY [facility] Rx#:[id number] Mvi, Adult No.4 with Vit 250 K 10 ml Trace (Conc-1Ml/ Dose) 1 ml In Amino Acid 4.25%-D10w+Lytes*E* 1,000 ml @ 50 mls/hr IV . [id number] [facility] Rx#:[id number] Mvi, Adult No.4 with Vit 581 332 K 10 ml Trace (Conc-1Ml/ Dose) 1 ml Potassium Acetate 10 meq Magnesium Sulfate 5 meq Potassium Phosphate 15 mmol Calcium Gluconate 1,000 mg In Amino Acid 4.25%-D10w 1, 000 ml @ 83 mls/hr IV .BY DURATION [facility] Rx#: [id number] Norepinephrine 4 mg In 71.056 Sodium Chloride 0.9% 250 ml @ Titrate IV .Q0M [facility] Rx#:[id number] Piperacillin-Tazobactam 3 50 50 50 .375 gm In Dextrose/Water 1 50ml.bag @ 12.5 mls/hr IVPB Q12HR [facility] Rx#: [id number] Potassium Acetate 10 meq 581 415 Magnesium Sulfate 5 meq Potassium Phosphate 15 mmol Calcium Gluconate 1, 000 mg In Amino Acid 4.25 %-D10w 1,000 ml @ 83 mls/ hr IV .BY DURATION [facility] Rx #:[id number] Potassium Chloride 20 meq 200 100 Lidocaine 2% Inj 20 mg In Sodium Chloride 0.9% 100 ml @ 55.5 mls/hr IVPB Q2HR [facility] Rx#:[id number] metroNIDAZOLE-NS PMX 500 100 100 100 mg In Saline 1 100ml.bag @ 100 mls/hr IVPB Q8HR [facility] Rx#:[id number] Output: Drainage 200 Right side, percuaneous 200 biliary drain Urine 705 740 315 Stool 300 100 Other: Voiding Method Indwelling Catheter Indwelling Catheter Indwelling Catheter - Exam General appearance: average body habitus, severe distress - EENT Eyes: anicteric sclerae, PERRLA, no ptosis, no scleral icterus, normal appearance ENT: hard of hearing, normal oropharynx, no thrush Ears: bilateral: normal - Neck Neck: no lymphadenopathy, normal ROM, no rigidity, no stridor, no thyromegaly Carotids: bilateral: upstroke delayed Thyroid: bilateral: normal size - Respiratory Respiratory: bilateral: diminished, dullness, rales, rhonchi, wheezing, prolonged expiration - Cardiovascular Rhythm: regular Heart sounds: normal: S1, S2 Abnormal Heart Sounds: systolic murmur, no S3 Gallop, no S4 Gallop - Gastrointestinal General gastrointestinal: decreased bowel sounds, distended, rigid, tenderness, no umbilical hernia, no ventral hernia Localized gastrointestinal: tender: diffuse - Integumentary Integumentary: flushed - Neurologic Neurologic: CNII-XII intact - Musculoskeletal Musculoskeletal: generalized weakness, strength equal bilaterally - Psychiatric Psychiatric: no A&O x's 3, no appropriate affect, no intact judgment & insight - Labs CBC & Chem 7: 08/01/16 04:57 08/01/16 04:57 Labs: Abnormal Lab Results - Last 24 Hours (Table) 07/30/16 07/30/16 07/30/16 Range/Units 16:47 20:15 23:59 WBC (3.8-10.6) k/uL RBC (4.30-5.90) m/uL Hgb (13.0-17.5) gm/dL MCHC (31.0-37.0) g/dL Plt Count (150-450) k/uL Neutrophils # (1.3-7.7) k/uL Lymphocytes # (1.0-4.8) k/uL PT (9.0-12.0) sec Sodium (137-145) mmol/L Chloride (98-107) mmol/L Carbon Dioxide (22-30) mmol/L BUN (9-20) mg/dL Creatinine (0.66-1.25) mg/dL Glucose (74-99) mg/dL POC Glucose (mg/dL) 192 H 230 H 237 H (75-99) mg/dL Calcium (8.4-10.2) mg/dL Magnesium (1.6-2.3) mg/dL Total Protein (6.3-8.2) g/dL Albumin (3.5-5.0) g/dL 07/31/16 07/31/16 07/31/16 Range/Units 03:36 04:45 04:45 WBC 11.1 H (3.8-10.6) k/uL RBC 4.13 L (4.30-5.90) m/uL Hgb 12.1 L (13.0-17.5) gm/dL MCHC 29.8 L (31.0-37.0) g/dL Plt Count 117 L (150-450) k/uL Neutrophils # 9.4 H (1.3-7.7) k/uL Lymphocytes # 0.7 L (1.0-4.8) k/uL PT (9.0-12.0) sec Sodium 150 H (137-145) mmol/L Chloride 126 H* (98-107) mmol/L Carbon Dioxide 13 L (22-30) mmol/L BUN 68 H (9-20) mg/dL Creatinine 2.50 H (0.66-1.25) mg/dL Glucose 182 H (74-99) mg/dL POC Glucose (mg/dL) 160 H (75-99) mg/dL Calcium 7.5 L (8.4-10.2) mg/dL Magnesium 2.4 H (1.6-2.3) mg/dL Total Protein 4.5 L (6.3-8.2) g/dL Albumin 1.9 L (3.5-5.0) g/dL 07/31/16 07/31/16 07/31/16 Range/Units 04:45 08:03 11:51 WBC (3.8-10.6) k/uL RBC (4.30-5.90) m/uL Hgb (13.0-17.5) gm/dL MCHC (31.0-37.0) g/dL Plt Count (150-450) k/uL Neutrophils # (1.3-7.7) k/uL Lymphocytes # (1.0-4.8) k/uL PT 14.0 H (9.0-12.0) sec Sodium (137-145) mmol/L Chloride (98-107) mmol/L Carbon Dioxide (22-30) mmol/L BUN (9-20) mg/dL Creatinine (0.66-1.25) mg/dL Glucose (74-99) mg/dL POC Glucose (mg/dL) 204 H 173 H (75-99) mg/dL Calcium (8.4-10.2) mg/dL Magnesium (1.6-2.3) mg/dL Total Protein (6.3-8.2) g/dL Albumin (3.5-5.0) g/dL Microbiology - Last 24 Hours (Table) 07/30/16 11:40 Gram Stain - Preliminary Aspirate Body Fluid Culture - Preliminary 07/26/16 19:30 Blood Culture - Preliminary Blood No Growth after 96 hours Assessment and Plan Plan: 1. Acute cholecystitis and Pseudomonas urinary tract infection with severe sepsis and septic shock status post ultrasound-guided cholecystostomy. ICU, IV fluid resuscitation, Levophed, discontinue Vancomycin, start the patient on Zosyn. Consult w Dr Islas appreciated. Dr. Luis is following for intensive care management. Consult with Dr. Robertson appreciated. Patient is to continue only Zosyn. 2. Leukocytosis secondary to severe sepsis. Continue IV fluid resuscitation, continue IV antibiotic, repeat CBC in the next 24 hours. 3. 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 Continue IV fluid resuscitation, discontinue vancomycin, discontinue Levaquin, continue IV fluid resuscitation, continue Levophed, nephrology consultation, computed tomography scan of the abdomen and pelvis as above. 4. Severe abdominal pain with a prior history of abdominal aortic aneurysm back in 2013. CAT scan as above. 5. Severe diarrhea. Check the stool for C. difficile, toxins a and B, check the stool culture, continue IV fluid resuscitation, discontinue Flagyl. 6. Anion gap metabolic acidosis as well as metabolic alkalosis. Continue IV fluid resuscitation, discontinue diuretics. 7. Lactic acidosis. Due to sepsis, continue IV fluid, continue IV antibiotic, repeat lactic acid in the next 24 hours. 8. CAD post-PCI. Continue aspirin 81 mg once every day, pravastatin 40, bedtime, hold off metoprolol for now. 9. Hypertension and hypertensive cardiovascular disease. Currently hypotensive we'll hold off antihypertensive medicine. 10. Enlarged prostate. Currently has a Burr catheter in place. 11. Parkinsonism. Currently on Sinemet 25/100 one tablet orally twice every day. 12. Diabetes mellitus type 2 with diabetic polyneuropathy. Continue patient on NovoLog Mix 70/30, continue patient on BGM 4 times every day. 13. Coagulopathy due to sepsis. 14. DVT prophylaxis. Heparin held due to coagulopathy. 15. GI prophylaxis. Protonix 40 mg IV push every 24 hours 16. Hypernatremia. 17 No code. Impression and plan of care have been directed as dictated by the signing physician. Linn Joseph nurse practitioner acting as scribe for signing physician. Time with Patient: Greater than 30
--- NOTE | 2016-08-01 16:47 | P.PN ---
Subjective Principal diagnosis: Patient seen and examined in the ICU with nursing staff at bedside. Patient is currently off of pressors. His mentation has not improved. He remains generally weak. He does have upper airway secretions which are unable to be cleared. His cough is very weak. Objective - Vital Signs Vital signs: Vital Signs Temp 98.9 F 08/01/16 12:00 Pulse 75 08/01/16 16:22 Resp 22 08/01/16 16:00 BP 161/59 08/01/16 16:00 Pulse Ox 99 08/01/16 16:00 Intake & Output 07/31/16 08/01/16 08/01/16 18:59 06:59 18:59 Intake Total 2322 2914.0 2130 Output Total 4815 590 3282 Balance 1222 1929.0 -560 Weight 102.5 kg 104.8 kg 104.8 kg Intake: IV 500 Mvi, Adult No.4 with Vit 500 K 10 ml Trace (Conc-1Ml/ Dose) 1 ml Potassium Acetate 20 meq Potassium Phosphate 10 mmol Calcium Gluconate 1,000 mg In Amino Acid 5%-D15w 1,000 ml @ 100 mls/hr IV .BY DURATION [facility] Rx#: [id number] Intake, IV Titration 2322 2914.0 1630 Amount Albumin Human 25% 50 ml 100 In Empty Bag 1 bag @ 100 mls/hr IVPB Q12H [facility] Rx#: [id number] Dextrose 5% in Water 1, 1175 1500 1000 000 ml @ 125 mls/hr IV . Q8H [facility] Rx#:[id number] Fat Emulsion 20% 250 ml @ 168 147 21 mls/hr IV DAILY [facility] Rx#:[id number] Mvi, Adult No.4 with Vit 581 K 10 ml Trace (Conc-1Ml/ Dose) 1 ml Potassium Acetate 10 meq Magnesium Sulfate 5 meq Potassium Phosphate 15 mmol Calcium Gluconate 1,000 mg In Amino Acid 4.25%-D10w 1, 000 ml @ 83 mls/hr IV .BY DURATION [facility] Rx#: [id number] Piperacillin-Tazobactam 3 100 .375 gm In Dextrose/Water 1 50ml.bag @ 12.5 mls/hr IVPB Q12HR [facility] Rx#: [id number] Piperacillin-Tazobactam 3 50.0 100 .375 gm In Dextrose/Water 1 50ml.bag @ 12.5 mls/hr IVPB Q8HR [facility] Rx#: [id number] Potassium Acetate 16 meq 166 996 83 Magnesium Sulfate 4 meq Potassium Phosphate 10 mmol Calcium Gluconate 1, 000 mg In Amino Acid 4.25 %-D10w 1,000 ml @ 83 mls/ hr IV .BY DURATION [facility] Rx #:[id number] Potassium Chloride 20 meq 100 In Water For Injection 1 100ml.bag @ 50 mls/hr IVPB ONCE ONE Rx#: [id number] Potassium Chloride 20 meq 100 In Water For Injection 1 100ml.bag @ 50 mls/hr IVPB Q12H [facility] Rx#: [id number] Potassium Chloride 20 meq 100 Lidocaine 2% Inj 20 mg In Sodium Chloride 0.9% 100 ml @ 55.5 mls/hr IVPB Q2HR [facility] Rx#:[id number] metroNIDAZOLE-NS PMX 500 200 100 100 mg In Saline 1 100ml.bag @ 100 mls/hr IVPB Q8HR [facility] Rx#:[id number] Output: Gastric Drainage 200 Drainage 100 Right side, percuaneous 100 biliary drain Urine 913 120 2717 Stool 400 400 Urine/Stool Mix 400 Other: Voiding Method Indwelling Catheter Indwelling Catheter Indwelling Catheter - Exam Gen.: Patient opens his eyes to verbal stimuli, he will answer questions but is slow to respond Cardiovascular: Regular rate and rhythm, S1/S2 Lungs: Coarse breath sounds bilaterally Abdomen: Soft nontender nondistended positive bowel sounds Extremities: No edema - Labs CBC & Chem 7: 08/01/16 04:57 08/01/16 04:57 Labs: Abnormal Lab Results - Last 24 Hours (Table) 07/31/16 07/31/16 07/31/16 Range/Units 16:45 16:46 20:30 RBC (4.30-5.90) m/uL Hgb (13.0-17.5) gm/dL Hct (39.0-53.0) % Plt Count (150-450) k/uL Sodium (137-145) mmol/L Chloride (98-107) mmol/L Carbon Dioxide (22-30) mmol/L BUN (9-20) mg/dL Creatinine (0.66-1.25) mg/dL Glucose (74-99) mg/dL POC Glucose (mg/dL) 212 H 174 H 182 H (75-99) mg/dL Calcium (8.4-10.2) mg/dL Total Protein (6.3-8.2) g/dL Albumin (3.5-5.0) g/dL 07/31/16 08/01/16 08/01/16 Range/Units 23:53 04:33 04:57 RBC (4.30-5.90) m/uL Hgb (13.0-17.5) gm/dL Hct (39.0-53.0) % Plt Count (150-450) k/uL Sodium 147 H (137-145) mmol/L Chloride 119 H (98-107) mmol/L Carbon Dioxide 19 L (22-30) mmol/L BUN 58 H (9-20) mg/dL Creatinine 2.13 H (0.66-1.25) mg/dL Glucose 213 H (74-99) mg/dL POC Glucose (mg/dL) 227 H 211 H (75-99) mg/dL Calcium 7.1 L (8.4-10.2) mg/dL Total Protein 4.4 L (6.3-8.2) g/dL Albumin 1.8 L (3.5-5.0) g/dL 08/01/16 08/01/16 08/01/16 Range/Units 04:57 07:40 12:10 RBC 3.65 L (4.30-5.90) m/uL Hgb 11.0 L (13.0-17.5) gm/dL Hct 34.7 L (39.0-53.0) % Plt Count 118 L (150-450) k/uL Sodium (137-145) mmol/L Chloride (98-107) mmol/L Carbon Dioxide (22-30) mmol/L BUN (9-20) mg/dL Creatinine (0.66-1.25) mg/dL Glucose (74-99) mg/dL POC Glucose (mg/dL) 226 H 125 H (75-99) mg/dL Calcium (8.4-10.2) mg/dL Total Protein (6.3-8.2) g/dL Albumin (3.5-5.0) g/dL Microbiology - Last 24 Hours (Table) 07/26/16 19:30 Blood Culture - Preliminary Blood No Growth after 120 hours 07/29/16 10:43 Stool Culture - Preliminary Stool 07/30/16 11:40 Gram Stain - Preliminary Aspirate Body Fluid Culture - Preliminary Assessment and Plan Plan: Septic shock, improving Urinary tract infection, recurrent pseudomonas infection Acute kidney injury, improving Mild anion gap metabolic acidosis Gastroenteritis Cholecystitis, s/p perc drain Hypernatremia/hyperchloremia Lactic acidosis Mild thrombocytosis Coagulopathy of unknown significance Leukocytosis Severe abdominal pain, history of abdominal aortic aneurysm Diarrhea History of coronary artery disease History of hypertension History of Parkinson's Diabetes mellitus type 2 Severe protein calorie malnutrition 8 mm WENDI pulmonary nodule O2 to maintain saturation greater than or equal to 88% Antibiotics: Zosyn Continue subcutaneous heparin for DVT prophylaxis now that INR is improved GI prophylaxis with Protonix Nephrology recs PICC line for TPN Discontinue Metoprolol Stool for C. diff is negative Bronchodilators Monitor urine output Chest PT, frequent suctioning, percussion Monitor labs Patient is currently not a surgical candidate, family does not want surgical intervention, continue medical therapy. Overall prognosis is very guarded Patient is overall not progressing. Would consider family discussion regarding goals of care.
[2016-08-01 16:55] LABS: Glucose,Whole Blood 187 mg/dL (75-99)
[2016-08-01 20:45] LABS: Glucose,Whole Blood 281 mg/dL (75-99)
--- NOTE | 2016-08-01 21:49 | P.PN ---
Subjective Principal diagnosis: Fever 85-year-old male who has a known history of underlying coronary artery disease status post stenting boxing history of hypertension and hypertensive cardiovascular disease. Presents to the emergency center from the rehab facility [facility] on the [place] where he had been sent after his hospitalization in June. At about 10 was having progressive weakness. He was having falls and unable to get up from the floor. It's related that in June when he became ill he simply grabbed a pillow in a blanket and supplement the floor overnight because he was not able to get up off the floor. By the next morning when he was still weak was able to call EMS and he was brought to hospital. He was evidence of sepsis from the urinary system was treated with antibiotic therapy and then had improvement. Patient will ever has become more septic with concerns to his urinary infection but also developed abdominal pain that became progressively more severe. He has been seen by surgery but because of his multiple medical troubles was not thought to be a good surgical candidate. In counseling he is now had the percutaneous cholecystostomy tube placed for drainage of his biliary tract which appears to be also a source of sepsis at this time. With evidence of a multidrug resistant pseudomonas aeruginosa the infectious diseases consultation was requested. This time this pleasant gentleman remains in the intensive care unit. He is arousable is following simple commands and is not conversational. Patient remains profoundly ill. He has been seen by surgery. Ideally would need surgical intervention but is not a surgical candidate at this time. Objective - Vital Signs Vital signs: Vital Signs Temp 98.6 F 08/01/16 17:00 Pulse 92 08/01/16 20:13 Resp 26 H 08/01/16 19:00 BP 143/74 08/01/16 19:00 Pulse Ox 97 08/01/16 19:00 Intake & Output 08/01/16 08/01/16 08/02/16 06:59 18:59 06:59 Intake Total 2914.0 2672 246 Output Total 985 3340 240 Balance 1929.0 -668 6 Weight 104.8 kg 104.8 kg Intake: IV 700 100 Mvi, Adult No.4 with Vit 700 100 K 10 ml Trace (Conc-1Ml/ Dose) 1 ml Potassium Acetate 20 meq Potassium Phosphate 10 mmol Calcium Gluconate 1,000 mg In Amino Acid 5%-D15w 1,000 ml @ 100 mls/hr IV .BY DURATION [facility] Rx#: [id number] Intake, IV Titration 2914.0 1972 146 Amount Albumin Human 25% 50 ml 100 In Empty Bag 1 bag @ 100 mls/hr IVPB Q12H [facility] Rx#: [id number] Dextrose 5% in Water 1, 1500 1250 125 000 ml @ 125 mls/hr IV . Q8H [facility] Rx#:[id number] Fat Emulsion 20% 250 ml @ 168 189 21 21 mls/hr IV DAILY [facility] Rx#:[id number] Piperacillin-Tazobactam 3 50.0 150 .375 gm In Dextrose/Water 1 50ml.bag @ 12.5 mls/hr IVPB Q8HR [facility] Rx#: [id number] Potassium Acetate 16 meq 996 83 Magnesium Sulfate 4 meq Potassium Phosphate 10 mmol Calcium Gluconate 1, 000 mg In Amino Acid 4.25 %-D10w 1,000 ml @ 83 mls/ hr IV .BY DURATION [facility] Rx #:[id number] Potassium Chloride 20 meq 100 In Water For Injection 1 100ml.bag @ 50 mls/hr IVPB ONCE ONE Rx#: [id number] Potassium Chloride 20 meq 100 In Water For Injection 1 100ml.bag @ 50 mls/hr IVPB Q12H [facility] Rx#: [id number] metroNIDAZOLE-NS PMX 500 100 100 mg In Saline 1 100ml.bag @ 100 mls/hr IVPB Q8HR [facility] Rx#:[id number] Output: Gastric Drainage 200 Drainage 100 Right side, percuaneous 100 biliary drain Urine 785 2440 240 Stool 400 Urine/Stool Mix 400 Other: Voiding Method Indwelling Catheter Indwelling Catheter - Exam 85-year-old male seems to be comfortable. He is able to respond to commands but is not conversational at this time. Occasional yes or no answer HEENT: Anicteric conjunctiva are pink and moist nasal mucosa grossly intact without significant lesions, there is no thrush. Oral cavity dry Neck: The neck is supple without significant lymphadenopathy or thyromegaly. Lungs: There is symmetrical air entry. There was significant crackles and wheezes that were scattered that improved greatly once he coughs upon command. Minimally few basilar crackles were heard. No dullness is noted. Heart: Irregular with an audible S1 and S2 no S3 soft S4 no distinct murmur click or rub is noted PMI was nondisplaced without heave or thrill Abdomen: Few bowel sounds are noted. His abdomen is quite tender throughout. He does moan in pain when his abdomen is touched. It is mildly rigid but not distinctly distended. A compel palpate no mass. And his greatest pain in the right upper quadrant. He does not have significant flank pain. No bruising to the abdominal wall was noted. Extremities: Generalized edema with weeping from prior IV sites. Peripheral pulses were 2+ and symmetric. Skin: Has evidence of some generalized edema. There is evidence of weeping from prior IV sites. There is no significant open ulcerations at this time. There is evidence of only minimal erythema to the buttocks. No pressure ulcerations are seen at this time. Neuro: The patient is awake and is able to respond to the observer mostly by following commands. He is not conversational but does nod his head to questions. His pain control appears to be adequate. - Labs CBC & Chem 7: 08/01/16 04:57 08/01/16 04:57 Labs: Abnormal Lab Results - Last 24 Hours (Table) 07/31/16 08/01/16 08/01/16 Range/Units 23:53 04:33 04:57 RBC (4.30-5.90) m/uL Hgb (13.0-17.5) gm/dL Hct (39.0-53.0) % Plt Count (150-450) k/uL Sodium 147 H (137-145) mmol/L Chloride 119 H (98-107) mmol/L Carbon Dioxide 19 L (22-30) mmol/L BUN 58 H (9-20) mg/dL Creatinine 2.13 H (0.66-1.25) mg/dL Glucose 213 H (74-99) mg/dL POC Glucose (mg/dL) 227 H 211 H (75-99) mg/dL Calcium 7.1 L (8.4-10.2) mg/dL Total Protein 4.4 L (6.3-8.2) g/dL Albumin 1.8 L (3.5-5.0) g/dL 08/01/16 08/01/16 08/01/16 Range/Units 04:57 07:40 12:10 RBC 3.65 L (4.30-5.90) m/uL Hgb 11.0 L (13.0-17.5) gm/dL Hct 34.7 L (39.0-53.0) % Plt Count 118 L (150-450) k/uL Sodium (137-145) mmol/L Chloride (98-107) mmol/L Carbon Dioxide (22-30) mmol/L BUN (9-20) mg/dL Creatinine (0.66-1.25) mg/dL Glucose (74-99) mg/dL POC Glucose (mg/dL) 226 H 125 H (75-99) mg/dL Calcium (8.4-10.2) mg/dL Total Protein (6.3-8.2) g/dL Albumin (3.5-5.0) g/dL 08/01/16 08/01/16 Range/Units 16:53 20:44 RBC (4.30-5.90) m/uL Hgb (13.0-17.5) gm/dL Hct (39.0-53.0) % Plt Count (150-450) k/uL Sodium (137-145) mmol/L Chloride (98-107) mmol/L Carbon Dioxide (22-30) mmol/L BUN (9-20) mg/dL Creatinine (0.66-1.25) mg/dL Glucose (74-99) mg/dL POC Glucose (mg/dL) 187 H 281 H (75-99) mg/dL Calcium (8.4-10.2) mg/dL Total Protein (6.3-8.2) g/dL Albumin (3.5-5.0) g/dL Microbiology - Last 24 Hours (Table) 07/29/16 10:43 Stool Culture - Final Stool 07/30/16 11:40 Gram Stain - Preliminary Aspirate Body Fluid Culture - Preliminary 07/26/16 19:30 Blood Culture - Preliminary Blood No Growth after 120 hours Laboratory Results WBC 9.2 k/uL (3.8-10.6) 08/01/16 04:57 RBC 3.65 m/uL (4.30-5.90) L 08/01/16 04:57 Hgb 11.0 gm/dL (13.0-17.5) L 08/01/16 04:57 Hct 34.7 % (39.0-53.0) L 08/01/16 04:57 MCV 95.1 fL (80.0-100.0) 08/01/16 04:57 MCH 30.1 pg (25.0-35.0) 08/01/16 04:57 MCHC 31.6 g/dL (31.0-37.0) 08/01/16 04:57 RDW 15.5 % (11.5-15.5) 08/01/16 04:57 Plt Count 118 k/uL (150-450) L 08/01/16 04:57 Neutrophils % 85 % 07/31/16 04:45 Lymphocytes % 6 % 07/31/16 04:45 Monocytes % 6 % 07/31/16 04:45 Eosinophils % 0 % 07/31/16 04:45 Basophils % 0 % 07/31/16 04:45 Neutrophils # 9.4 k/uL (1.3-7.7) H 07/31/16 04:45 Lymphocytes # 0.7 k/uL (1.0-4.8) L 07/31/16 04:45 Monocytes # 0.6 k/uL (0-1.0) 07/31/16 04:45 Eosinophils # 0.1 k/uL (0-0.7) 07/31/16 04:45 Basophils # 0.0 k/uL (0-0.2) 07/31/16 04:45 Hypochromasia Slight 08/01/16 04:57 PT 14.0 sec (9.0-12.0) H 07/31/16 04:45 INR 1.4 (<1.1) 07/31/16 04:45 APTT 31.0 sec (22.0-30.0) H 07/29/16 04:37 Fibrinogen 685 mg/dL (200-500) H 07/28/16 12:24 D-Dimer 3.25 mg/L FEU (<0.60) H 07/28/16 12:24 Sodium 147 mmol/L (137-145) H 08/01/16 04:57 Potassium 3.9 mmol/L (3.5-5.1) 08/01/16 04:57 Chloride 119 mmol/L (98-107) H 08/01/16 04:57 Carbon Dioxide 19 mmol/L (22-30) L 08/01/16 04:57 Anion Gap 9 mmol/L 08/01/16 04:57 BUN 58 mg/dL (9-20) H 08/01/16 04:57 Creatinine 2.13 mg/dL (0.66-1.25) H 08/01/16 04:57 Est GFR (MDRD) Af Amer 36 (>60 ml/min/1.73 sqM) 08/01/16 04:57 Est GFR (MDRD) Non-Af 30 (>60 ml/min/1.73 sqM) 08/01/16 04:57 Glucose 213 mg/dL (74-99) H 08/01/16 04:57 POC Glucose (mg/dL) 281 mg/dL (75-99) H 08/01/16 20:44 POC Glu Tapering Machine Operator ID Vesta Pate 08/01/16 20:[address] Glu mg/dL 143 mg/dL 07/27/16 03:33 Hemoglobin A1c 6.6 % (4.2-6.1) H 07/27/16 03:33 Plasma Lactic Acid Yovanny 1.6 mmol/L (0.7-2.0) 07/26/16 20:08 Calcium 7.1 mg/dL (8.4-10.2) L 08/01/16 04:57 Ionized Calcium Ced 4.9 mg/dL (4.5-5.3) 08/01/16 04:57 Phosphorus 2.6 mg/dL (2.5-4.5) 08/01/16 04:57 Magnesium 1.9 mg/dL (1.6-2.3) 08/01/16 04:57 Total Bilirubin 0.4 mg/dL (0.2-1.3) 08/01/16 04:57 AST 19 U/L (17-59) 08/01/16 04:57 ALT 26 U/L (21-72) 08/01/16 04:57 Alkaline Phosphatase 53 U/L (38-126) 08/01/16 04:57 Total Creatine Kinase 40 U/L (55-170) L 07/27/16 03:33 CK-MB (CK-2) 1.0 ng/mL (0.0-2.4) 07/27/16 03:33 CK-MB (CK-2) Rel Index 2.5 07/27/16 03:33 Troponin I 0.123 ng/mL (0.000-0.034) H* 07/27/16 03:33 NT-Pro-B Natriuret Pep 395 pg/mL 08/01/16 11:12 Total Protein 4.4 g/dL (6.3-8.2) L 08/01/16 04:57 Albumin 1.8 g/dL (3.5-5.0) L 08/01/16 04:57 Triglycerides 67 mg/dL (<150) 07/31/16 04:45 Cortisol 78 ug/dL 07/26/16 20:08 Urine Color 07/26/16 16:55 Urine WBC >182 /hpf (0-5) H 07/26/16 16:55 Urine WBC Clumps Many /hpf (None) H 07/26/16 16:55 Urine Bacteria Rare /hpf (None) H 07/26/16 16:55 Stl Cryptosporidium Ag Negative (Negative) 07/29/16 15:50 Stool Giardia Source Stool 07/29/16 15:50 Stl Giardia Antigen Negative (Negative) 07/29/16 15:50 Random Vancomycin 9.9 ug/mL 07/28/16 04:11 Urine Opiates Screen Not Detected (NotDetected) 07/26/16 16:55 Ur Oxycodone Screen Not Detected (NotDetected) 07/26/16 16:55 Urine Methadone Screen Not Detected (NotDetected) 07/26/16 16:55 Ur Propoxyphene Screen Not Detected (NotDetected) 07/26/16 16:55 Ur Barbiturates Screen Not Detected (NotDetected) 07/26/16 16:55 U Tricyclic Antidepress Not Detected (NotDetected) 07/26/16 16:55 Ur Phencyclidine Scrn Not Detected (NotDetected) 07/26/16 16:55 Ur Amphetamines Screen Not Detected (NotDetected) 07/26/16 16:55 U Methamphetamines Scrn Not Detected (NotDetected) 07/26/16 16:55 U Benzodiazepines Scrn Not Detected (NotDetected) 07/26/16 16:55 Urine Cocaine Screen Not Detected (NotDetected) 07/26/16 16:55 U Marijuana (THC) Screen Not Detected (NotDetected) 07/26/16 16:55 C. difficile (EIA) Intrp Negative (Negative) 07/26/16 14:39 C. difficile Tox (PCR) Not Detected (Not Detectd) 07/27/16 15:35 Blood Type O Positive 07/26/16 14:39 Blood Type Recheck No 07/26/16 14:39 Antibody Screen NEGATIVE 07/26/16 14:39 Spec Expiration Date 07/29/2016 - 2339 07/26/16 14:39 Microbiology 07/29/16 10:43 Stool Stool Culture - Final 07/30/16 11:40 Aspirate Gram Stain - Preliminary 07/30/16 11:40 Aspirate Body Fluid Culture - Preliminary 07/26/16 19:30 Blood Blood Culture - Preliminary No Growth after 120 hours 07/26/16 14:39 Blood Blood Culture - Preliminary No Growth after 120 hours 07/26/16 14:49 Urine,Catheterized Urine Culture - Final Pseudomonas aeruginosa Assessment and Plan (1) Sepsis due to Gram-negative organism with septic shock Narrative/Plan: Pleasant 85-year-old male presented hospital as a transfer from [facility] because of evidence of fever and worsening status. 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 His had several interventions in the past including cystoscopy and double-J catheter placements. 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 The organism fortunately is susceptible to piperacillin tazobactam and has been utilized at this point in time. With his improvement would not further adjust or enhance the antimicrobial therapy. His hypotension has resolved and is now off the Levaquin. There is evidence of the acute cholecystitis and is now had a percutaneous cholecystostomy tube placed. Seems to be having some improvement in his blood pressure is better off of vasopressor therapy. Still has a significantly tender abdomen. Would expect to start to improve over the next 24 hours. Receiving nutrition via TPN. Via the PICC line. Blood cultures are negative. Culture from the drainage is in process and pending at this time. With the piperacillin tazobactam being utilized would not need metronidazole. Leukocytosis is improving and from the significant infection of the urinary system as well as of his acute cholecystitis. The patient apparently would do well to have surgical intervention but is not well enough for surgery. Consider there is the potential for comfort care status if he does not have remarkable improvement. Status: Acute (2) Pseudomonas urinary tract infection Status: Acute (3) Cholecystitis Status: Acute
[2016-08-02] MEDS: ACETAMINOPHEN IV (For NPO) 1,000 MG in EMPTY BAG 1 BAG IVPB SCH ×3 (00:23→12:21)
[2016-08-02] MEDS: ALBUMIN HUMAN 25% 50 ML in EMPTY BAG 1 BAG IVPB SCH ×2 (00:24→00:52)
[2016-08-02] MEDS: HEPARIN SODIUM,PORCINE 5,000 UNIT/ML 1 ML VIAL SQ SCH ×2 (00:26→08:34)
[2016-08-02] MEDS: POTASSIUM CHLORIDE 20 MEQ in WATER FOR INJECTION 1 100ML.BAG IVPB SCH (00:27)
[2016-08-02 00:32] LABS: Glucose,Whole Blood 287 mg/dL (75-99)
[2016-08-02] MEDS: INSULIN LISPRO (humaLOG) 300 UNIT/3 ML VIAL SQ SCH ×4 (00:34→12:21)
[2016-08-02] MEDS: PIPERACILLIN-TAZOBACTAM 3.375 GM in DEXTROSE/WATER 1 50ML.BAG IVPB SCH ×2 (00:38→10:00)
[2016-08-02 04:12] LABS: Glucose,Whole Blood 263 mg/dL (75-99)
[2016-08-02 05:11] LABS: CH 29.5; CHCM 31.6; HDW 2.82; HGB 10.3 gm/dL (13.0-17.5); Hypochromasia Slight; MCH 30.3 pg (25.0-35.0); MCHC 32.2 g/dL (31.0-37.0); MCV 93.9 fL (80.0-100.0); Mean Platelet Volume 8.9; RDW 14.7 % (11.5-15.5); WBC 8.3 k/uL (3.8-10.6)
[2016-08-02 05:15] LABS: Ionized Calcium 4.8 mg/dL (4.5-5.3)
[2016-08-02 05:24] LABS: Magnesium 1.6 mg/dL (1.6-2.3); Phosphorous 3.1 mg/dL (2.5-4.5)
[2016-08-02] MEDS: DEXTROSE 5% IN WATER 1,000 ML IV SCH (06:38)
[2016-08-02] MEDS: IPRATROPIUM-ALBUTEROL 3 ML NEB INHALATION SCH ×2 (07:45→11:25)
[2016-08-02 08:12] LABS: Glucose,Whole Blood 199 mg/dL (75-99)
--- NOTE | 2016-08-02 08:17 | XR ---
EXAMINATION TYPE: XR chest 1V portable DATE OF EXAM: 08/02/2016 6:55 AM Comparison: 08/01/2016 Clinical History: 85 year-old male shortness of breath Findings: Heart size accentuated by low lung volumes and crowded vascular markings. Heart is likely normal limi ts in size. There is increasing patchy opacity at the right costophrenic angle and continued patchy o pacity at the left costophrenic angle. Impression: Hypoventilatory changes with either trace effusions versus atelectasis/infiltrates at the costophreni c angles, new on the right.
[2016-08-02] MEDS: CARBIDOPA-LEVODOPA 25-100 MG 1 EACH TAB PO SCH (08:30)
[2016-08-02] MEDS: CYANOCOBALAMIN 500 MCG TAB PO SCH (08:30)
[2016-08-02] MEDS: FUROSEMIDE 10 MG/ML 4 ML VIAL IV SCH (08:32)
[2016-08-02 08:33] LABS: Glucose,Whole Blood 198 mg/dL (75-99)
[2016-08-02] MEDS: PANTOPRAZOLE 40 MG/10 ML VIAL IV SCH (08:46)
[2016-08-02] MEDS: INSULN ASP PRT/INSULIN ASPART 100 UNIT/ML 10 ML VIAL SQ SCH (08:48)
[2016-08-02 08:49] LABS: Calcium 7.3 mg/dL (8.4-10.2); Potassium 3.9 mmol/L (3.5-5.1)
[2016-08-02] MEDS ORDERED: 1: AMINO ACID 5%-D15W+LYTES*E* 1,000 ML 2: MVI, ADULT NO.4 WITH VIT K 10 ML, TRACE (CON IV SCH ×3 (09:30)
[2016-08-02] MEDS: FAT EMULSION 20% 250 ML IV SCH (10:02)
[2016-08-02] MEDS: MAGNESIUM SULFATE-D5W PMX 1 GM in DEXTROSE/WATER 1 100ML.BAG IVPB SCH ×2 (10:16→11:19)
--- NOTE | 2016-08-02 11:41 | P.PN ---
Subjective Principal diagnosis: Septic shock Patient seen and examined in the ICU with nursing staff at bedside. Patient has remained hemodynamically stable. His mentation has not improved. He still remains extremely weak with poor handling of his secretions. Per nursing case management and primary team have discussed comfort care with the family and they are agreeable. Objective - Vital Signs Vital signs: Vital Signs Temp 97.4 F L 08/02/16 08:00 Pulse 68 08/02/16 11:37 Resp 25 H 08/02/16 11:00 BP 128/59 08/02/16 11:00 Pulse Ox 97 08/02/16 11:00 Intake & Output 08/01/16 08/02/16 08/02/16 18:59 06:59 18:59 Intake Total 2672 3092.0 1327 Output Total 3340 2125 1510 Balance -668 967.0 -183 Weight 104.8 kg 102.4 kg Intake: IV 700 1200 500 Mvi, Adult No.4 with Vit 700 1200 500 K 10 ml Trace (Conc-1Ml/ Dose) 1 ml Potassium Acetate 20 meq Potassium Phosphate 10 mmol Calcium Gluconate 1,000 mg In Amino Acid 5%-D15w 1,000 ml @ 100 mls/hr IV .BY DURATION [facility] Rx#: [id number] Intake, IV Titration 1972 1892.0 767 Amount ACETAMINOPHEN IV (For NPO 100 100 ) 1,000 mg In Empty Bag 1 bag @ 400 mls/hr IVPB Q6HR [facility] Rx#:[id number] Albumin Human 25% 50 ml 100 100 In Empty Bag 1 bag @ 100 mls/hr IVPB Q12H [facility] Rx#: [id number] Dextrose 5% in Water 1, 1250 1500 625 000 ml @ 125 mls/hr IV . Q8H [facility] Rx#:[id number] Fat Emulsion 20% 250 ml @ 189 42 42 21 mls/hr IV DAILY [facility] Rx#:[id number] Piperacillin-Tazobactam 3 150 50.0 .375 gm In Dextrose/Water 1 50ml.bag @ 12.5 mls/hr IVPB Q8HR [facility] Rx#: [id number] Potassium Acetate 16 meq 83 Magnesium Sulfate 4 meq Potassium Phosphate 10 mmol Calcium Gluconate 1, 000 mg In Amino Acid 4.25 %-D10w 1,000 ml @ 83 mls/ hr IV .BY DURATION [facility] Rx #:[id number] Potassium Chloride 20 meq 100 100 In Water For Injection 1 100ml.bag @ 50 mls/hr IVPB Q12H [facility] Rx#: [id number] metroNIDAZOLE-NS PMX 500 100 mg In Saline 1 100ml.bag @ 100 mls/hr IVPB Q8HR [facility] Rx#:[id number] Oral 60 Output: Drainage 100 100 Right side, percuaneous 100 100 biliary drain Urine 2440 1725 1210 Stool 400 300 300 Urine/Stool Mix 400 Other: Voiding Method Indwelling Catheter Indwelling Catheter Indwelling Catheter - Exam Gen.: Patient opens his eyes to verbal stimuli, he will answer questions but is slow to respond Cardiovascular: Regular rate and rhythm, S1/S2 Lungs: Coarse breath sounds bilaterally Abdomen: Soft nontender nondistended positive bowel sounds Extremities: No edema - Labs CBC & Chem 7: 08/02/16 04:55 08/02/16 04:55 Labs: Abnormal Lab Results - Last 24 Hours (Table) 08/01/16 08/01/16 08/01/16 Range/Units 12:10 16:53 20:44 RBC (4.30-5.90) m/uL Hgb (13.0-17.5) gm/dL Hct (39.0-53.0) % Plt Count (150-450) k/uL Chloride (98-107) mmol/L Carbon Dioxide (22-30) mmol/L BUN (9-20) mg/dL Creatinine (0.66-1.25) mg/dL Glucose (74-99) mg/dL POC Glucose (mg/dL) 125 H 187 H 281 H (75-99) mg/dL Calcium (8.4-10.2) mg/dL 08/02/16 08/02/16 08/02/16 Range/Units 00:31 04:11 04:55 RBC 3.40 L (4.30-5.90) m/uL Hgb 10.3 L (13.0-17.5) gm/dL Hct 32.0 L (39.0-53.0) % Plt Count 141 L (150-450) k/uL Chloride (98-107) mmol/L Carbon Dioxide (22-30) mmol/L BUN (9-20) mg/dL Creatinine (0.66-1.25) mg/dL Glucose (74-99) mg/dL POC Glucose (mg/dL) 287 H 263 H (75-99) mg/dL Calcium (8.4-10.2) mg/dL 08/02/16 08/02/16 08/02/16 Range/Units 04:55 08:09 08:31 RBC (4.30-5.90) m/uL Hgb (13.0-17.5) gm/dL Hct (39.0-53.0) % Plt Count (150-450) k/uL Chloride 111 H (98-107) mmol/L Carbon Dioxide 19 L (22-30) mmol/L BUN 56 H (9-20) mg/dL Creatinine 2.16 H (0.66-1.25) mg/dL Glucose 232 H (74-99) mg/dL POC Glucose (mg/dL) 199 H 198 H (75-99) mg/dL Calcium 7.3 L (8.4-10.2) mg/dL Microbiology - Last 24 Hours (Table) 07/29/16 10:43 Stool Culture - Final Stool 07/26/16 19:30 Blood Culture - Final Blood No Growth after 144 hours 07/30/16 11:40 Gram Stain - Preliminary Aspirate Body Fluid Culture - Preliminary Assessment and Plan Plan: Septic shock, improving Urinary tract infection, recurrent pseudomonas infection Acute kidney injury, improving Mild anion gap metabolic acidosis Gastroenteritis Cholecystitis, s/p perc drain Hypernatremia/hyperchloremia Lactic acidosis Mild thrombocytosis Coagulopathy of unknown significance Leukocytosis Severe abdominal pain, history of abdominal aortic aneurysm Diarrhea History of coronary artery disease History of hypertension History of Parkinson's Diabetes mellitus type 2 Severe protein calorie malnutrition 8 mm WENDI pulmonary nodule O2 to maintain saturation greater than or equal to 88% Antibiotics: Zosyn Continue subcutaneous heparin for DVT prophylaxis now that INR is improved GI prophylaxis with Protonix Nephrology recs PICC line for TPN Discontinue Metoprolol Stool for C. diff is negative Bronchodilators Monitor urine output Chest PT, frequent suctioning, percussion Monitor labs Patient is currently not a surgical candidate, family does not want surgical intervention, continue medical therapy. Overall prognosis is very guarded Patient is overall not progressing. Would consider family discussion regarding goals of care. Agree with comfort care
[2016-08-02 12:04] VITALS: TEMP 98.1
[2016-08-02 12:13] LABS: Glucose,Whole Blood 243 mg/dL (75-99)
--- NOTE | 2016-08-02 12:30 | P.PN ---
Subjective Principal diagnosis: Cholecystitis Patient slightly more alert today. Hemodynamically is stable. Still confused and essentially nonverbal Objective - Vital Signs Vital signs: Vital Signs Temp 98.1 F 08/02/16 12:00 Pulse 69 08/02/16 12:00 Resp 22 08/02/16 12:00 BP 128/54 08/02/16 12:00 Pulse Ox 98 08/02/16 12:00 Intake & Output 08/01/16 08/02/16 08/02/16 18:59 06:59 18:59 Intake Total 2672 3092.0 1573 Output Total 3340 2125 2060 Balance -668 967.0 -487 Weight 104.8 kg 102.4 kg Intake: IV 700 1200 600 Mvi, Adult No.4 with Vit 700 1200 600 K 10 ml Trace (Conc-1Ml/ Dose) 1 ml Potassium Acetate 20 meq Potassium Phosphate 10 mmol Calcium Gluconate 1,000 mg In Amino Acid 5%-D15w 1,000 ml @ 100 mls/hr IV .BY DURATION [facility] Rx#: [id number] Intake, IV Titration 1971 1892.0 913 Amount ACETAMINOPHEN IV (For NPO 100 100 ) 1,000 mg In Empty Bag 1 bag @ 400 mls/hr IVPB Q6HR [facility] Rx#:[id number] Albumin Human 25% 50 ml 100 100 In Empty Bag 1 bag @ 100 mls/hr IVPB Q12H [facility] Rx#: [id number] Dextrose 5% in Water 1, 1250 1500 750 000 ml @ 125 mls/hr IV . Q8H [facility] Rx#:[id number] Fat Emulsion 20% 250 ml @ 189 42 63 21 mls/hr IV DAILY [facility] Rx#:[id number] Piperacillin-Tazobactam 3 150 50.0 .375 gm In Dextrose/Water 1 50ml.bag @ 12.5 mls/hr IVPB Q8HR [facility] Rx#: [id number] Potassium Acetate 16 meq 83 Magnesium Sulfate 4 meq Potassium Phosphate 10 mmol Calcium Gluconate 1, 000 mg In Amino Acid 4.25 %-D10w 1,000 ml @ 83 mls/ hr IV .BY DURATION [facility] Rx #:[id number] Potassium Chloride 20 meq 100 100 In Water For Injection 1 100ml.bag @ 50 mls/hr IVPB Q12H [facility] Rx#: [id number] metroNIDAZOLE-NS PMX 500 100 mg In Saline 1 100ml.bag @ 100 mls/hr IVPB Q8HR [facility] Rx#:[id number] Oral 60 Output: Drainage 100 100 Right side, percuaneous 100 100 biliary drain Urine 2440 1725 1460 Stool 400 300 600 Urine/Stool Mix 400 Other: Voiding Method Indwelling Catheter Indwelling Catheter Indwelling Catheter - Exam Abdomen: Soft, nondistended, diffuse mild tenderness noted, biliary drain in place - Labs CBC & Chem 7: 08/02/16 04:55 08/02/16 04:55 Labs: Abnormal Lab Results - Last 24 Hours (Table) 08/01/16 08/01/16 08/02/16 Range/Units 16:53 20:44 00:31 RBC (4.30-5.90) m/uL Hgb (13.0-17.5) gm/dL Hct (39.0-53.0) % Plt Count (150-450) k/uL Chloride (98-107) mmol/L Carbon Dioxide (22-30) mmol/L BUN (9-20) mg/dL Creatinine (0.66-1.25) mg/dL Glucose (74-99) mg/dL POC Glucose (mg/dL) 187 H 281 H 287 H (75-99) mg/dL Calcium (8.4-10.2) mg/dL 08/02/16 08/02/16 08/02/16 Range/Units 04:11 04:55 04:55 RBC 3.40 L (4.30-5.90) m/uL Hgb 10.3 L (13.0-17.5) gm/dL Hct 32.0 L (39.0-53.0) % Plt Count 141 L (150-450) k/uL Chloride 111 H (98-107) mmol/L Carbon Dioxide 19 L (22-30) mmol/L BUN 56 H (9-20) mg/dL Creatinine 2.16 H (0.66-1.25) mg/dL Glucose 232 H (74-99) mg/dL POC Glucose (mg/dL) 263 H (75-99) mg/dL Calcium 7.3 L (8.4-10.2) mg/dL 08/02/16 08/02/16 08/02/16 Range/Units 08:09 08:31 12:07 RBC (4.30-5.90) m/uL Hgb (13.0-17.5) gm/dL Hct (39.0-53.0) % Plt Count (150-450) k/uL Chloride (98-107) mmol/L Carbon Dioxide (22-30) mmol/L BUN (9-20) mg/dL Creatinine (0.66-1.25) mg/dL Glucose (74-99) mg/dL POC Glucose (mg/dL) 199 H 198 H 243 H (75-99) mg/dL Calcium (8.4-10.2) mg/dL Microbiology - Last 24 Hours (Table) 07/29/16 10:43 Stool Culture - Final Stool 07/26/16 19:30 Blood Culture - Final Blood No Growth after 144 hours 07/30/16 11:40 Gram Stain - Preliminary Aspirate Body Fluid Culture - Preliminary Assessment and Plan (1) Acute cholecystitis Narrative/Plan: Continue antibiotics. Follow cultures. Continue discussions with the family regarding extent of care. Status: Acute
[2016-08-02] MEDS ORDERED: SODIUM BICARB 8.4% 50 ML SYR (1 MEQ/ML) IV STA (13:20)
--- NOTE | 2016-08-02 13:20 | P.PN ---
Subjective Patient is seen in follow-up for acute kidney injury. Renal function is stable with creatinine at 2.16 today. Hemodynamically he stable. Sodium level is down to 141. Bicarb level is also stable at 19. He is currently receiving PPN. He did have a cholecystostomy tube placed this admission for acute cholangitis. Output from the drain has been about 100 mL. Patient is quite lethargic. He is nonoliguric. Vital signs are stable. General: The patient appeared well nourished and normally developed. HEENT: Head exam is unremarkable. Neck is without jugular venous distension. LUNGS: Lungs are clear to auscultation and percussion. Breath sounds decreased. HEART: Rate and Rhythm are regular. First and second heart sounds normal. No murmurs, rubs or gallops. ABDOMEN: Abdominal exam reveals normal bowel sounds. Non-tender and non- distended. No evidence of peritonitis. EXTREMITITES: No clubbing, cyanosis, or edema. Objective - Vital Signs Vital signs: Vital Signs Temp 98.1 F 08/02/16 12:00 Pulse 69 08/02/16 12:00 Resp 22 08/02/16 12:00 BP 128/54 08/02/16 12:00 Pulse Ox 98 08/02/16 12:00 Intake & Output 08/01/16 08/02/16 08/02/16 18:59 06:59 18:59 Intake Total 2672 3092.0 1573 Output Total 3340 2125 2060 Balance -668 967.0 -487 Weight 104.8 kg 102.4 kg Intake: IV 700 1200 600 Mvi, Adult No.4 with Vit 700 1200 600 K 10 ml Trace (Conc-1Ml/ Dose) 1 ml Potassium Acetate 20 meq Potassium Phosphate 10 mmol Calcium Gluconate 1,000 mg In Amino Acid 5%-D15w 1,000 ml @ 100 mls/hr IV .BY DURATION LV Rx#: [id number] Intake, IV Titration 1972 1892.0 913 Amount ACETAMINOPHEN IV (For NPO 100 100 ) 1,000 mg In Empty Bag 1 bag @ 400 mls/hr IVPB Q6HR LV Rx#:[id number] Albumin Human 25% 50 ml 100 100 In Empty Bag 1 bag @ 100 mls/hr IVPB Q12H [facility] Rx#: [id number] Dextrose 5% in Water 1, 1250 1500 750 000 ml @ 125 mls/hr IV . Q8H [facility] Rx#:[id number] Fat Emulsion 20% 250 ml @ 189 42 63 21 mls/hr IV DAILY [facility] Rx#:[id number] Piperacillin-Tazobactam 3 150 50.0 .375 gm In Dextrose/Water 1 50ml.bag @ 12.5 mls/hr IVPB Q8HR [facility] Rx#: [id number] Potassium Acetate 16 meq 83 Magnesium Sulfate 4 meq Potassium Phosphate 10 mmol Calcium Gluconate 1, 000 mg In Amino Acid 4.25 %-D10w 1,000 ml @ 83 mls/ hr IV .BY DURATION [facility] Rx #:[id number] Potassium Chloride 20 meq 100 100 In Water For Injection 1 100ml.bag @ 50 mls/hr IVPB Q12H [facility] Rx#: [id number] metroNIDAZOLE-NS PMX 500 100 mg In Saline 1 100ml.bag @ 100 mls/hr IVPB Q8HR [facility] Rx#:[id number] Oral 60 Output: Drainage 100 100 Right side, percuaneous 100 100 biliary drain Urine 2440 1725 1460 Stool 400 300 600 Urine/Stool Mix 400 Other: Voiding Method Indwelling Catheter Indwelling Catheter Indwelling Catheter - Labs CBC & Chem 7: 08/02/16 04:55 08/02/16 04:55 Labs: Abnormal Lab Results - Last 24 Hours (Table) 08/01/16 08/01/16 08/02/16 Range/Units 16:53 20:44 00:31 RBC (4.30-5.90) m/uL Hgb (13.0-17.5) gm/dL Hct (39.0-53.0) % Plt Count (150-450) k/uL Chloride (98-107) mmol/L Carbon Dioxide (22-30) mmol/L BUN (9-20) mg/dL Creatinine (0.66-1.25) mg/dL Glucose (74-99) mg/dL POC Glucose (mg/dL) 187 H 281 H 287 H (75-99) mg/dL Calcium (8.4-10.2) mg/dL 08/02/16 08/02/16 08/02/16 Range/Units 04:11 04:55 04:55 RBC 3.40 L (4.30-5.90) m/uL Hgb 10.3 L (13.0-17.5) gm/dL Hct 32.0 L (39.0-53.0) % Plt Count 141 L (150-450) k/uL Chloride 111 H (98-107) mmol/L Carbon Dioxide 19 L (22-30) mmol/L BUN 56 H (9-20) mg/dL Creatinine 2.16 H (0.66-1.25) mg/dL Glucose 232 H (74-99) mg/dL POC Glucose (mg/dL) 263 H (75-99) mg/dL Calcium 7.3 L (8.4-10.2) mg/dL 08/02/16 08/02/16 08/02/16 Range/Units 08:09 08:31 12:07 RBC (4.30-5.90) m/uL Hgb (13.0-17.5) gm/dL Hct (39.0-53.0) % Plt Count (150-450) k/uL Chloride (98-107) mmol/L Carbon Dioxide (22-30) mmol/L BUN (9-20) mg/dL Creatinine (0.66-1.25) mg/dL Glucose (74-99) mg/dL POC Glucose (mg/dL) 199 H 198 H 243 H (75-99) mg/dL Calcium (8.4-10.2) mg/dL Microbiology - Last 24 Hours (Table) 07/29/16 10:43 Stool Culture - Final Stool 07/26/16 19:30 Blood Culture - Final Blood No Growth after 144 hours 07/30/16 11:40 Gram Stain - Preliminary Aspirate Body Fluid Culture - Preliminary Assessment and Plan Plan: Assessment: #1. Nonoliguric acute kidney injury secondary to hemodynamic instability and sepsis. Renal function stable. #2. Severe sepsis secondary to acute cholangitis as well as UTI. #3. Hypernatremia secondary to lack of oral water intake. Sodium level 141 today. #4. Hyperchloremic metabolic acidosis secondary to acute kidney injury and GI losses. #5. Severe protein calorie malnutrition. Plan: I will change IV fluids to half-normal saline to be run at 50 mL an hour. 1 A of sodium bicarbonate IV push. Avoid nephrotoxic agents and hypotensive episodes. Repeat electrolytes in the morning. Antibiotics per infectious disease recommendations. Poor prognosis.
--- NOTE | 2016-08-02 13:21 | P.PN ---
Subjective This is an 85-year-old male with a previous medical history significant for coronary artery disease status post PCI and stent placement, hypertension and hypertensive cardiovascular disease with left ventricular hypertrophy, hyperlipidemia, history of osteoarthritis, history of kidney stones , enlarged prostate, 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 Patient fell again last night about 9:30 she states he started to fall and she helped him to the floor slowly there was no injury. Patient was unable to get up so she laid a blanket on the floor in a pillow and let him sleep here overnight. This morning she called EMS to help him off the floor and wanted him brought to the hospital checked out and hopefully get her some assistance. he was found to have a significant urinary tract infection with sepsis, chest x-ray showed a tiny left lower lobe infiltrate with a left-sided pleural effusion with the nodules in the lung did not change from 2013. Patient was admitted to the hospital urine culture was done as well as blood culture he was placed on IV antibiotic in the form of Levaquin 750 mg IV piggyback every 24 hours subsequently the patient was discharged to [facility] for physical therapy and rehabilitation under Dr. Schofield service, and the patient was sent into the emergency department at [facility] yesterday because of severe sepsis with acute kidney injury and top of chronic kidney disease he was admitted to the intensive care unit, he was given IV fluid he was seen and evaluated by nephrology because of his acute kidney injury , he was started on IV antibiotic in the form of vancomycin he was taken off his Levaquin, unfortunately patient last hospitalization showed Pseudomonas that resistant to fluoroquinolones and the patient was maintained on Levaquin. 07/28: Sodium 148, potassium 3.4, carbon dioxide 16, BUN 17 creatinine 3.3. Patient will be changed to IV fluids of 0.45 normal saline. Blood sugars have been elevated for which Humalog 7030 increased to 18 units twice daily. Patient is currently nothing by mouth except ice chips. Dr. Islas on consult for her CAT scan findings of cholecystitis likely the source of sepsis. Patient is not a surgical candidate and family do not want him to go for surgery. Percutaneous drain is option but INR is elevated. INR today is at 5.7. Dr. Steve is following for acute kidney injury. Dr. Luis is following for intensive care management. Is also having ongoing diarrhea and currently on fecal management system. He is on low-dose levo fed. Patient has been on vancomycin and Zosyn. Flagyl has been added and vancomycin discontinued. 07/29: Patient still remains on Levophed to mics per minute, no surgeries to anticipated for the findings of cholecystitis noted as a source of sepsis, patient has right upper quadrant pain, left lower quadrant pain. Family has been aware off the surgical procedure which they have declined patient remains in ICU multiple specialties on consult 07/30: Patient underwent percutaneous drainage off the gallbladder with cholecystotomy, cultures were sent from bile, patient's more obtunded today leukocytoses and hypertension hypernatremia persist, coagulopathy has been reversed using vitamin K and spontaneous coagulopathy he has improved. Albumin extremely low at 1.9 closely monitored in ICU 07/31: Patient remains in the intensive care unit. He has been started on TPN. PICC line is scheduled for today Patient has been seen by Dr. Robertson from infectious disease with recommendations to continue Zosyn and discontinue metronidazole he has status post 3 A of bicarb. PICC line is scheduled for later today. He is on PPN to be moved over to TPN. Percutaneous drain with 100 mL. Fecal management system draining 500 mL over the past 24 hours. Blood sugars running high for which 7030 increased to 20 units twice daily. Temperature max is 99.2 axillary. 08/01: Patient remains in intensive care unit with third space seen noted. Albumin 1.8. Albumin 3 doses and Lasix 40 mg every 12 hours 3 doses added. He is on TPN. PICC line was placed yesterday. Cultures from the biliary drain are negative. Temperature max 99.7. He has been off vasopressors. Sodium 147 , chloride 119, CO2 19. Sodium bicarbonate ordered by nephrology. BUN 15 creatinine 2.13. Echocardiogram reveals mild mitral regurgitation, mild tricuspid regurgitation, mild concentric left ventricular hypertrophy, EF 50-55% . 08/02: Patient is not progressing as would be expected. Case management to make arrangements for family meeting for hospice informational meeting. Patient does appear appropriate for inpatient hospice care. Objective - Vital Signs Vital signs: Vital Signs Temp 97.4 F L 08/02/16 08:00 Pulse 64 08/02/16 09:00 Resp 24 08/02/16 09:00 BP 99/42 08/02/16 09:00 Pulse Ox 98 08/02/16 09:00 Intake & Output 08/01/16 08/02/16 08/02/16 18:59 06:59 18:59 Intake Total 2672 3092.0 835 Output Total 3340 2125 910 Balance -668 967.0 -75 Weight 104.8 kg 102.4 kg Intake: IV 700 1200 300 Mvi, Adult No.4 with Vit 700 1200 300 K 10 ml Trace (Conc-1Ml/ Dose) 1 ml Potassium Acetate 20 meq Potassium Phosphate 10 mmol Calcium Gluconate 1,000 mg In Amino Acid 5%-D15w 1,000 ml @ 100 mls/hr IV .BY DURATION [facility] Rx#: [id number] Intake, IV Titration 1972 1892.0 475 Amount ACETAMINOPHEN IV (For NPO 100 100 ) 1,000 mg In Empty Bag 1 bag @ 400 mls/hr IVPB Q6HR LV Rx#:[id number] Albumin Human 25% 50 ml 100 100 In Empty Bag 1 bag @ 100 mls/hr IVPB Q12H [facility] Rx#: [id number] Dextrose 5% in Water 1, 1250 1500 375 000 ml @ 125 mls/hr IV . Q8H [facility] Rx#:[id number] Fat Emulsion 20% 250 ml @ 189 42 21 mls/hr IV DAILY [facility] Rx#:[id number] Piperacillin-Tazobactam 3 150 50.0 .375 gm In Dextrose/Water 1 50ml.bag @ 12.5 mls/hr IVPB Q8HR [facility] Rx#: [id number] Potassium Acetate 16 meq 83 Magnesium Sulfate 4 meq Potassium Phosphate 10 mmol Calcium Gluconate 1, 000 mg In Amino Acid 4.25 %-D10w 1,000 ml @ 83 mls/ hr IV .BY DURATION [facility] Rx #:[id number] Potassium Chloride 20 meq 100 100 In Water For Injection 1 100ml.bag @ 50 mls/hr IVPB Q12H [facility] Rx#: [id number] metroNIDAZOLE-NS PMX 500 100 mg In Saline 1 100ml.bag @ 100 mls/hr IVPB Q8HR [facility] Rx#:[id number] Oral 60 Output: Drainage 100 100 Right side, percuaneous 100 100 biliary drain Urine 2440 1725 610 Stool 400 300 300 Urine/Stool Mix 400 Other: Voiding Method Indwelling Catheter Indwelling Catheter Indwelling Catheter - Exam General appearance: average body habitus, severe distress - EENT Eyes: anicteric sclerae, PERRLA, no ptosis, no scleral icterus, normal appearance ENT: hard of hearing, normal oropharynx, no thrush Ears: bilateral: normal - Neck Neck: no lymphadenopathy, normal ROM, no rigidity, no stridor, no thyromegaly Carotids: bilateral: upstroke delayed Thyroid: bilateral: normal size - Respiratory Respiratory: bilateral: diminished, dullness, rales, rhonchi, wheezing, prolonged expiration - Cardiovascular Rhythm: regular Heart sounds: normal: S1, S2 Abnormal Heart Sounds: systolic murmur, no S3 Gallop, no S4 Gallop - Gastrointestinal General gastrointestinal: decreased bowel sounds, distended, rigid, tenderness, no umbilical hernia, no ventral hernia Localized gastrointestinal: tender: diffuse - Integumentary Integumentary: flushed - Neurologic Neurologic: CNII-XII intact - Musculoskeletal Musculoskeletal: generalized weakness, strength equal bilaterally - Psychiatric Psychiatric: no A&O x's 3, no appropriate affect, no intact judgment & insight - Labs CBC & Chem 7: 08/02/16 04:55 08/02/16 04:55 Labs: Abnormal Lab Results - Last 24 Hours (Table) 08/01/16 08/01/16 08/01/16 Range/Units 12:10 16:53 20:44 RBC (4.30-5.90) m/uL Hgb (13.0-17.5) gm/dL Hct (39.0-53.0) % Plt Count (150-450) k/uL Chloride (98-107) mmol/L Carbon Dioxide (22-30) mmol/L BUN (9-20) mg/dL Creatinine (0.66-1.25) mg/dL Glucose (74-99) mg/dL POC Glucose (mg/dL) 125 H 187 H 281 H (75-99) mg/dL Calcium (8.4-10.2) mg/dL 08/02/16 08/02/16 08/02/16 Range/Units 00:31 04:11 04:55 RBC 3.40 L (4.30-5.90) m/uL Hgb 10.3 L (13.0-17.5) gm/dL Hct 32.0 L (39.0-53.0) % Plt Count 141 L (150-450) k/uL Chloride (98-107) mmol/L Carbon Dioxide (22-30) mmol/L BUN (9-20) mg/dL Creatinine (0.66-1.25) mg/dL Glucose (74-99) mg/dL POC Glucose (mg/dL) 287 H 263 H (75-99) mg/dL Calcium (8.4-10.2) mg/dL 08/02/16 08/02/16 08/02/16 Range/Units 04:55 08:09 08:31 RBC (4.30-5.90) m/uL Hgb (13.0-17.5) gm/dL Hct (39.0-53.0) % Plt Count (150-450) k/uL Chloride 111 H (98-107) mmol/L Carbon Dioxide 19 L (22-30) mmol/L BUN 56 H (9-20) mg/dL Creatinine 2.16 H (0.66-1.25) mg/dL Glucose 232 H (74-99) mg/dL POC Glucose (mg/dL) 199 H 198 H (75-99) mg/dL Calcium 7.3 L (8.4-10.2) mg/dL Microbiology - Last 24 Hours (Table) 07/29/16 10:43 Stool Culture - Final Stool 07/26/16 19:30 Blood Culture - Final Blood No Growth after 144 hours 07/30/16 11:40 Gram Stain - Preliminary Aspirate Body Fluid Culture - Preliminary Assessment and Plan Plan: 1. Acute cholecystitis and Pseudomonas urinary tract infection with severe sepsis and septic shock status post ultrasound-guided cholecystostomy. ICU, IV fluid resuscitation, Levophed, discontinue Vancomycin, start the patient on Zosyn. Consult w Dr Islas appreciated. Dr. Luis is following for intensive care management. Consult with Dr. Robertson appreciated. Patient is to continue only Zosyn. 2. Leukocytosis secondary to severe sepsis. Continue IV fluid resuscitation, continue IV antibiotic, repeat CBC in the next 24 hours. 3. 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 Continue IV fluid resuscitation, discontinue vancomycin, discontinue Levaquin, continue IV fluid resuscitation, continue Levophed, nephrology consultation, computed tomography scan of the abdomen and pelvis as above. 4. Severe abdominal pain with a prior history of abdominal aortic aneurysm back in 2013. CAT scan as above. 5. Severe diarrhea. Check the stool for C. difficile, toxins a and B, check the stool culture, continue IV fluid resuscitation, discontinue Flagyl. 6. Anion gap metabolic acidosis as well as metabolic alkalosis. Continue IV fluid resuscitation, discontinue diuretics. 7. Lactic acidosis. Due to sepsis, continue IV fluid, continue IV antibiotic, repeat lactic acid in the next 24 hours. 8. CAD post-PCI. Continue aspirin 81 mg once every day, pravastatin 40, bedtime, hold off metoprolol for now. 9. Hypertension and hypertensive cardiovascular disease. Currently hypotensive we'll hold off antihypertensive medicine. 10. Enlarged prostate. Currently has a Burr catheter in place. 11. Parkinsonism. Currently on Sinemet 25/100 one tablet orally twice every day. 12. Diabetes mellitus type 2 with diabetic polyneuropathy. Continue patient on NovoLog Mix 70/30, continue patient on BGM 4 times every day. 13. Coagulopathy due to sepsis. 14. DVT prophylaxis. Heparin held due to coagulopathy. 15. GI prophylaxis. Protonix 40 mg IV push every 24 hours 16. Hypernatremia. 17 No code. Impression and plan of care have been directed as dictated by the signing physician. Linn Joseph nurse practitioner acting as scribe for signing physician. Time with Patient: Greater than 30
[2016-08-02] MEDS ORDERED: SODIUM CHLORIDE 0.45% 1,000 ML IV ONE (13:29)
[2016-08-02 14:21] VITALS: BP 119/46; PULSE 66; RESP 23
--- NOTE | 2016-08-22 12:05 | P.DS ---
Providers Date of admission: 07/26/16 16:50 Expected date of discharge: 08/02/16 Attending physician: Annel Rogers Consults: 07/26/16 16:53 Consult Physician Urgent Consulting Provider: Sangeeta Luis Consult Reason/Comments: Critical care management, sepsis Do you want consulting provider notified?: Yes 07/27/16 10:22 Consult Physician Routine Consulting Provider: Ronnie Steve Consult Reason/Comments: wendy Do you want consulting provider notified?: Yes 07/27/16 15:46 Consult Physician Stat Consulting Provider: Ben Islas Consult Reason/Comments: cholecystitis Do you want consulting provider notified?: Yes 07/29/16 10:46 Consult Physician Routine Consulting Provider: Mo Robertson Consult Reason/Comments: sepsis Do you want consulting provider notified?: Yes Primary care physician: Marilyn Schofield [facility] Course: This is an 85-year-old male with a previous medical history significant for coronary artery disease status post PCI and stent placement, hypertension and hypertensive cardiovascular disease with left ventricular hypertrophy, hyperlipidemia, history of osteoarthritis, history of kidney stones , enlarged prostate, 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 Patient fell again last night about 9:30 she states he started to fall and she helped him to the floor slowly there was no injury. Patient was unable to get up so she laid a blanket on the floor in a pillow and let him sleep here overnight. This morning she called EMS to help him off the floor and wanted him brought to the hospital checked out and hopefully get her some assistance. he was found to have a significant urinary tract infection with sepsis, chest x-ray showed a tiny left lower lobe infiltrate with a left-sided pleural effusion with the nodules in the lung did not change from 2013. Patient was admitted to the hospital urine culture was done as well as blood culture he was placed on IV antibiotic in the form of Levaquin 750 mg IV piggyback every 24 hours subsequently the patient was discharged to [facility] on the [place] for physical therapy and rehabilitation under Dr. Schofield service, and the patient was sent into the emergency department at [facility] yesterday because of severe sepsis with acute kidney injury and top of chronic kidney disease he was admitted to the intensive care unit, he was given IV fluid he was seen and evaluated by nephrology because of his acute kidney injury , he was started on IV antibiotic in the form of vancomycin he was taken off his Levaquin, unfortunately patient last hospitalization showed Pseudomonas that resistant to fluoroquinolones and the patient was maintained on Levaquin. 07/28: Sodium 148, potassium 3.4, carbon dioxide 16, BUN 17 creatinine 3.3. Patient will be changed to IV fluids of 0.45 normal saline. Blood sugars have been elevated for which Humalog 7030 increased to 18 units twice daily. Patient is currently nothing by mouth except ice chips. Dr. Islas on consult for her CAT scan findings of cholecystitis likely the source of sepsis. Patient is not a surgical candidate and family do not want him to go for surgery. Percutaneous drain is option but INR is elevated. INR today is at 5.7. Dr. Steve is following for acute kidney injury. Dr. Luis is following for intensive care management. Is also having ongoing diarrhea and currently on fecal management system. He is on low-dose levo fed. Patient has been on vancomycin and Zosyn. Flagyl has been added and vancomycin discontinued. 07/29: Patient still remains on Levophed to mics per minute, no surgeries to anticipated for the findings of cholecystitis noted as a source of sepsis, patient has right upper quadrant pain, left lower quadrant pain. Family has been aware off the surgical procedure which they have declined patient remains in ICU multiple specialties on consult 07/30: Patient underwent percutaneous drainage off the gallbladder with cholecystotomy, cultures were sent from bile, patient's more obtunded today leukocytoses and hypertension hypernatremia persist, coagulopathy has been reversed using vitamin K and spontaneous coagulopathy he has improved. Albumin extremely low at 1.9 closely monitored in ICU 07/31: Patient remains in the intensive care unit. He has been started on TPN. PICC line is scheduled for today Patient has been seen by Dr. Robertson from infectious disease with recommendations to continue Zosyn and discontinue metronidazole he has status post 3 A of bicarb. PICC line is scheduled for later today. He is on PPN to be moved over to TPN. Percutaneous drain with 100 mL. Fecal management system draining 500 mL over the past 24 hours. Blood sugars running high for which 7030 increased to 20 units twice daily. Temperature max is 99.2 axillary. 08/01: Patient remains in intensive care unit with third space seen noted. Albumin 1.8. Albumin 3 doses and Lasix 40 mg every 12 hours 3 doses added. He is on TPN. PICC line was placed yesterday. Cultures from the biliary drain are negative. Temperature max 99.7. He has been off vasopressors. Sodium 147 , chloride 119, CO2 19. Sodium bicarbonate ordered by nephrology. BUN 15 creatinine 2.13. Echocardiogram reveals mild mitral regurgitation, mild tricuspid regurgitation, mild concentric left ventricular hypertrophy, EF 50-55% . 08/02: Patient is not progressing as would be expected. Case management to make arrangements for family meeting for hospice informational meeting. Patient does appear appropriate for inpatient hospice care. Discharge diagnoses: 1. Acute cholecystitis and Pseudomonas urinary tract infection with severe sepsis and septic shock status post ultrasound-guided cholecystostomy. 2. Leukocytosis secondary to severe sepsis. 3. 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 4. Severe abdominal pain with a prior history of abdominal aortic aneurysm back in 2013. 5. Severe diarrhea. 6. Anion gap metabolic acidosis as well as metabolic alkalosis. 7. Lactic acidosis. Due to sepsis 8. CAD post-PCI. 9. Hypertension and hypertensive cardiovascular disease. 10. Enlarged prostate. 11. Parkinsonism. 12. Diabetes mellitus type 2 with diabetic polyneuropathy. 13. Coagulopathy due to sepsis. No code. PLAN: Continue comfort care measures only. MS dumont, Alphonso as needed, scopolamine patch. Impression and plan of care have been directed as dictated by the signing physician. Linn Joseph nurse practitioner acting as scribe for signing physician. Patient Condition at Discharge: Undetermined Plan - Discharge Summary Discharge Medication List Insuln Asp Prt/Insulin Aspart [NovoLOG MIX 70-30 VIAL] 30 units SQ HS 05/29/14 [ History] Insuln Asp Prt/Insulin Aspart [NovoLOG MIX 70-30 VIAL] 35 units SQ QAM 05/29/14 [History] Lovastatin 40 mg PO HS@2100 05/29/14 [History] Metoprolol Tartrate [Lopressor] 25 mg PO BID #1 tab 06/12/14 [Rx] hydrALAZINE HCL [Apresoline] 25 mg PO BID 07/05/16 [History] Carbidopa-Levodopa 25-100 mg [Sinemet 25-100 mg] 1 tab PO BID 07/26/16 [History] Cholecalciferol [Vitamin D3] 1,000 unit PO HS 07/26/16 [History] Cyanocobalamin [Vitamin B-12] 500 mcg PO DAILY 07/26/16 [History] Midodrine HCl [ProAmatine] 10 mg PO TID 07/26/16 [History] Omeprazole 20 mg PO DAILY 07/26/16 [History] Follow up Appointment(s)/Referral(s): Marilyn Schofield MD [Primary Care Provider] - 1-2 days Discharge Disposition: DISCH TO [facility]
== END 2016-08-02 14:38 | disposition hospice, inpatient (51) | DRG 871 ==
LOC: EC 14:30 → 6ICU 16:50
PROVIDERS: ADMIT Internal Medicine; ATTEND Internal Medicine
PROC: 0D9P70Z Drainage of Rectum with Drainage Device, Via Natural or Artificial Opening (ICD-10-PCS; 2016-07-26)
PROC: 3E0336Z Introduction of Nutritional Substance into Peripheral Vein, Percutaneous Approach (ICD-10-PCS; 2016-07-29)
PROC: 3E0436Z Introduction of Nutritional Substance into Central Vein, Percutaneous Approach (ICD-10-PCS; 2016-07-31)
PROC: 02H633Z Insertion of Infusion Device into Right Atrium, Percutaneous Approach (ICD-10-PCS; 2016-07-31)
PROC: 0F9430Z Drainage of Gallbladder with Drainage Device, Percutaneous Approach (ICD-10-PCS; principal; 2016-07-31 14:15)
DX: A41.50 Gram-negative sepsis, unspecified (principal); R65.21 Severe sepsis with septic shock; E43 Unspecified severe protein-calorie malnutrition; N17.9 Acute kidney failure, unspecified; E87.4 Mixed disorder of acid-base balance; K83.0 Cholangitis; E87.0 Hyperosmolality and hypernatremia; D68.9 Coagulation defect, unspecified; N39.0 Urinary tract infection, site not specified; E87.1 Hypo-osmolality and hyponatremia; K80.00 Calculus of gallbladder with acute cholecystitis without obstruction; I13.10 Hypertensive heart and chronic kidney disease without heart failure, with stage 1 through stage 4 chronic kidney disease, or unspecified chronic kidney disease; E11.22 Type 2 diabetes mellitus with diabetic chronic kidney disease; Z51.5 Encounter for palliative care; Z66 Do not resuscitate; E11.42 Type 2 diabetes mellitus with diabetic polyneuropathy; I95.9 Hypotension, unspecified; G20 Parkinson's disease; I25.10 Atherosclerotic heart disease of native coronary artery without angina pectoris; I25.2 Old myocardial infarction; N18.3 Chronic kidney disease, stage 3 (moderate); J44.9 Chronic obstructive pulmonary disease, unspecified; D47.3 Essential (hemorrhagic) thrombocythemia; K52.9 Noninfective gastroenteritis and colitis, unspecified; B96.5 Pseudomonas (aeruginosa) (mallei) (pseudomallei) as the cause of diseases classified elsewhere; I71.4 Abdominal aortic aneurysm, without rupture; E87.6 Hypokalemia; G89.29 Other chronic pain; R29.6 Repeated falls; E78.5 Hyperlipidemia, unspecified; K21.9 Gastro-esophageal reflux disease without esophagitis; R53.1 Weakness; E86.9 Volume depletion, unspecified; I49.1 Atrial premature depolarization; R00.0 Tachycardia, unspecified; E87.8 Other disorders of electrolyte and fluid balance, not elsewhere classified; I08.1 Rheumatic disorders of both mitral and tricuspid valves; N40.0 Benign prostatic hyperplasia without lower urinary tract symptoms; R91.8 Other nonspecific abnormal finding of lung field; D17.79 Benign lipomatous neoplasm of other sites; M19.90 Unspecified osteoarthritis, unspecified site; N28.1 Cyst of kidney, acquired; R41.0 Disorientation, unspecified; H91.90 Unspecified hearing loss, unspecified ear; Z79.4 Long term (current) use of insulin; Z88.8 Allergy status to other drugs, medicaments and biological substances; Z86.19 Personal history of other infectious and parasitic diseases; Z79.899 Other long term (current) drug therapy; Z91.81 History of falling; Z79.82 Long term (current) use of aspirin; Z83.3 Family history of diabetes mellitus; Z90.49 Acquired absence of other specified parts of digestive tract; Z98.42 Cataract extraction status, left eye; Z98.41 Cataract extraction status, right eye; Z16.23 Resistance to quinolones and fluoroquinolones; Z16.24 Resistance to multiple antibiotics; Z85.828 Personal history of other malignant neoplasm of skin; Z96.652 Presence of left artificial knee joint; Z87.891 Personal history of nicotine dependence; Z95.5 Presence of coronary angioplasty implant and graft; Z87.440 Personal history of urinary (tract) infections; Z87.442 Personal history of urinary calculi; Z68.29 Body mass index [BMI] 29.0-29.9, adult
CPT/HCPCS: 36415; 36569; 49406; 70450; 71010; 71020; 74176; 76937; 76942; 80048; 80051; 80053; 80202; 80299; 80306; 82330; 82533; 82550; 82553; 83036; 83605; 83735; 83880; 84100; 84132; 84478; 84484; 85025; 85027; 85379; 85384; 85610; 85730; 86850; 86900; 86901; 87040; 87045; 87046; 87070; 87077; 87086; 87186; 87205; 87324; 87328; 87329; 87493; 93005; 93306; 94640; 96361; 96365; 99291

== ENCOUNTER 2016-08-02 14:55 | Inpatient (IN) | payer MEDICAID ==
[2016-08-02] MEDS ORDERED: ARTIFICIAL TEARS-HYPROMELLOSE DROPS 15 ML BTL BOTH EYES PRN (15:43)
[2016-08-02] MEDS ORDERED: MORPHINE SULFATE 2 MG/ML SYRINGE IV PRN (15:43)
[2016-08-02] MEDS ORDERED: ACETAMINOPHEN SUPPOSITORY 650 MG SUPP RECTAL PRN (15:43)
[2016-08-02] MEDS ORDERED: DRY MOUTH SPRAY 44.3 SPRAY/44.3 ML SPRAY MUCOUS MEM PRN (15:43)
[2016-08-02] MEDS ORDERED: SCOPOLAMINE 1.5MG/72HR PATCH TRANSDERM PRN (15:43)
[2016-08-02] MEDS ORDERED: MORPHINE SULFATE 4 MG/ML SYRINGE IVP PRN (15:47)
[2016-08-02] MEDS ORDERED: ONDANSETRON 4 MG/2 ML VIAL IVP PRN (15:48)
[2016-08-02] MEDS ORDERED: BISACODYL 10 MG SUPP RECTAL PRN (15:50)
[2016-08-02] MEDS ORDERED: SODIUM CHLORIDE 0.65% NASAL SPRAY 44 ML BTL NASAL PRN (15:52)
[2016-08-02] MEDS ORDERED: LORazepam 2 MG/ML SYRINGE IV PRN (15:53)
[2016-08-02] MEDS: MORPHINE SULFATE 4 MG/ML SYRINGE IV PRN ×2 (16:22→21:57)
[2016-08-02] MEDS: SODIUM CHLORIDE 0.45% 1,000 ML IV SCH (16:23)
[2016-08-02 23:47] VITALS: BP 129/63; RESP 20; TEMP 98.5
[2016-08-03] MEDS: MORPHINE SULFATE 4 MG/ML SYRINGE IV PRN ×4 (00:19→18:57)
--- NOTE | 2016-08-03 14:23 | P.HPIM ---
History of Present Illness H&P Date: 08/03/16 Chief Complaint: Comfort care This is an 85-year-old male with a previous medical history significant for coronary artery disease status post PCI and stent placement, hypertension and hypertensive cardiovascular disease with left ventricular hypertrophy, hyperlipidemia, history of osteoarthritis, history of kidney stones , enlarged prostate, history of basal cell cancer of the ear lobes, history of renal disease, kidney stones, multiple urinary tract infection with Pseudomonas in the past. She was brought in to [facility] from the [facility] on July 26 and was treated for acute cholecystitis status post cholecystostomy, Pseudomonas urinary tract infection with severe sepsis, septic shock. Patient was also treated for acute kidney injury. He did not respond well to treatment and continued to decline in his overall condition. Family decided to make patient comfort care and hospice referral was placed. Patient is now under inpatient hospice care. Review of Systems ROS unobtainable: due to mental status Past Medical History Past Medical History: Coronary Artery Disease (CAD), COPD, Diabetes Mellitus, GERD/Reflux, Hyperlipidemia, Hypertension, Memory Impairment, Myocardial Infarction (RI), Neurologic Disorder, Osteoarthritis (OA), Prostate Disorder, Renal Disease Additional Past Medical History / Comment(s): BASAL CANCER EARLOBES. Last Myocardial Infarction Date:: 2001 History of Any Multi-Drug Resistant Organisms: Other MDRO Past Surgical History: Appendectomy, Heart Catheterization With Stent, Orthopedic Surgery Additional Past Surgical History / Comment(s): VON CATARACT REMOVAL, LEFT TKA Past Anesthesia/Blood Transfusion Reactions: No Reported Reaction Date of Last Stent Placement:: 2001 Past Psychological History: No Psychological Hx Reported Additional Psychological History / Comment(s): currently residing at [facility]. Retired. Positive experience no recent travel. No recent animal exposures Smoking Status: Former smoker Past Alcohol Use History: None Reported Additional Past Alcohol Use History / Comment(s): QUIT SMOKING 1989 Past Drug Use History: None Reported - Past Family History Brother(s) Family Medical History: Diabetes Mellitus Father Family Medical History: Unable to Obtain Mother Family Medical History: Unable to Obtain Son(s) Family Medical History: No Reported History Medications and Allergies Home Medications Medication Instructions Recorded Confirmed Type Insuln Asp Prt/Insulin Aspart 30 units SQ HS 05/29/14 07/26/16 History [NovoLOG MIX 70-30 VIAL] Insuln Asp Prt/Insulin Aspart 35 units SQ QAM 05/29/14 07/26/16 History [NovoLOG MIX 70-30 VIAL] Lovastatin 40 mg PO HS@2100 05/29/14 07/26/16 History hydrALAZINE HCL [Apresoline] 25 mg PO BID 07/05/16 07/26/16 History Carbidopa-Levodopa 25-100 mg 1 tab PO BID 07/26/16 07/26/16 History [Sinemet 25-100 mg] Cholecalciferol [Vitamin D3] 1,000 unit PO HS 07/26/16 07/26/16 History Cyanocobalamin [Vitamin B-12] 500 mcg PO DAILY 07/26/16 07/26/16 History Midodrine HCl [ProAmatine] 10 mg PO TID 07/26/16 07/26/16 History Omeprazole 20 mg PO DAILY 07/26/16 07/26/16 History Allergies Allergy/AdvReac Type Severity Reaction Status Date / Time dipyridamole Allergy Confusion Verified 07/26/16 14:41 [From Persantine] Physical Exam Vitals: Vital Signs Temp Pulse Resp BP Pulse Ox 08/03/16 09:17 95 08/03/16 08:00 73 20 08/02/16 23:00 98.5 F 73 20 129/63 95 Intake and Output 08/02/16 08/03/16 08/03/16 22:59 06:59 14:59 Intake Total 60 Output Total 100 800 Balance -40 -800 Intake: IV 60 Sodium Chloride 0.45% 1, 60 000 ml @ 20 mls/hr IV . Q24H [facility] Rx#:[id number] Output: Drainage 100 Abdomen 100 Urine 800 Other: Voiding Method Indwelling Catheter Indwelling Catheter Weight 102.4 kg Gen: This is an 85-year-old male. He appears to be comfortable in bed. HEENT: Head is atraumatic, normocephalic. Pupils equal, round. Sclerae is anicteric. Mucous members of the mouth are dry. NECK: Supple. No JVD. No lymphadenopathy. No thyromegaly. LUNGS: Rhonchi. No intercostal retractions. HEART: Regular rate and rhythm. Systolic murmur. ABDOMEN: Soft. Bowel sounds are present. No masses. No tenderness. Iliac artery drainage tube in place. Burr catheter in place. Fecal management system in place EXTREMITIES: 2+ pedal edema. No calf tenderness. NEUROLOGICAL: Patient is oriented x1. Thrombosis Risk Factor Assmnt - DVT/VTE Prophylaxis DVT/VTE Prophylaxis: Contraindicated - See note (Comfort care) - Choose All That Apply Any of the Below Risk Factors Present?: Yes Each Factor Represents 1 point: Abnormal pulmonary function (COPD), Obesity ( BMI >25), Swollen legs (current) Other Risk Factors: Yes Each Risk Factor Represents 2 Points: Malignancy Each Risk Factor Represents 3 Points: Age 75 years or older Other congenital or acquired thrombophilia - If yes, enter type in comment: No Thrombosis Risk Factor Assessment Total Risk Factor Score: 8 Thrombosis Risk Factor Assessment Level: High Risk Assessment and Plan Plan: 1. Acute cholecystitis and Pseudomonas urinary tract infection with severe sepsis and septic shock status post ultrasound-guided cholecystostomy. 2. Leukocytosis secondary to severe sepsis. 3. 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 4. Severe abdominal pain with a prior history of abdominal aortic aneurysm back in 2013. 5. Severe diarrhea. 6. Anion gap metabolic acidosis as well as metabolic alkalosis. 7. Lactic acidosis. Due to sepsis 8. CAD post-PCI. 9. Hypertension and hypertensive cardiovascular disease. 10. Enlarged prostate. 11. Parkinsonism. 12. Diabetes mellitus type 2 with diabetic polyneuropathy. 13. Coagulopathy due to sepsis. No code. PLAN: Continue comfort care measures only. MS is IV push, Zofran as needed, scopolamine patch. Impression and plan of care have been directed as dictated by the signing physician. Linn Joseph nurse practitioner acting as scribe for signing physician. Time with Patient: Greater than 30
[2016-08-03] MEDS: SODIUM CHLORIDE 0.45% 1,000 ML IV SCH (16:29)
[2016-08-04] MEDS: MORPHINE SULFATE 4 MG/ML SYRINGE IV PRN (07:59)
[2016-08-04] MEDS: MORPHINE SULFATE 100 MG in SODIUM CHLORIDE 0.9% 100 ML IV SCH (12:05)
[2016-08-04] MEDS ORDERED: ATROPINE OPHTH SOLN 1% 5ML BTL SUBLINGUAL PRN (13:54)
--- NOTE | 2016-08-04 15:18 | P.PN ---
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 She was brought in to [facility] from the long term on July 26 and was treated for acute cholecystitis status post cholecystostomy, Pseudomonas urinary tract infection with severe sepsis, septic shock. Patient was also treated for acute kidney injury. He did not respond well to treatment and continued to decline in his overall condition. Family decided to make patient comfort care and hospice referral was placed. Patient is now under inpatient hospice care. 08/04: Patient was started on morphine drip. Objective - Vital Signs Vital signs: Vital Signs Temp 98.5 F 08/02/16 23:00 Pulse 73 08/04/16 08:00 Resp 20 08/04/16 08:00 BP 129/63 08/02/16 23:00 Pulse Ox 95 08/03/16 09:17 Intake & Output 08/03/16 08/04/16 08/04/16 18:59 06:59 18:59 Intake Total 0 240 Output Total 230 Balance 0 10 Intake: IV 240 Sodium Chloride 0.45% 1, 240 000 ml @ 20 mls/hr IV . Q24H [facility] Rx#:[id number] Oral 0 Output: Drainage 230 Abdomen 230 Other: Voiding Method Indwelling Catheter Indwelling Catheter Indwelling Catheter - Exam Gen: This is an 85-year-old male. He appears to be comfortable in bed. HEENT: Head is atraumatic, normocephalic. Pupils equal, round. Sclerae is anicteric. Mucous members of the mouth are dry. NECK: Supple. No JVD. No lymphadenopathy. No thyromegaly. LUNGS: Rhonchi. No intercostal retractions. HEART: Regular rate and rhythm. Systolic murmur. ABDOMEN: Soft. Bowel sounds are present. No masses. No tenderness. Iliac artery drainage tube in place. Burr catheter in place. Fecal management system in place EXTREMITIES: 2+ pedal edema. No calf tenderness. NEUROLOGICAL: Patient is oriented x1. Assessment and Plan Plan: 1. Acute cholecystitis and Pseudomonas urinary tract infection with severe sepsis and septic shock status post ultrasound-guided cholecystostomy. 2. Leukocytosis secondary to severe sepsis. 3. 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 4. Severe abdominal pain with a prior history of abdominal aortic aneurysm back in 2013. 5. Severe diarrhea. 6. Anion gap metabolic acidosis as well as metabolic alkalosis. 7. Lactic acidosis. Due to sepsis 8. CAD post-PCI. 9. Hypertension and hypertensive cardiovascular disease. 10. Enlarged prostate. 11. Parkinsonism. 12. Diabetes mellitus type 2 with diabetic polyneuropathy. 13. Coagulopathy due to sepsis. No code. PLAN: Continue comfort care measures only. MS tim, Zofran as needed, scopolamine patch. Impression and plan of care have been directed as dictated by the signing physician. Linn Joseph nurse practitioner acting as scribe for signing physician. Time with Patient: Greater than 30
[2016-08-05 02:15] VITALS: PULSE 69
[2016-08-05 08:26] VITALS: BMI 29.0
--- NOTE | 2016-08-05 15:13 | PN ---
INTERVAL HISTORY: Patient continues to be in no acute distress on the morphine drip. No major events reported by nursing staff. Patient seems to have slowing breathing. PHYSICAL EXAMINATION: VITAL SIGNS: Heart rate in the 70s. Breathing rate is slowing down as above. LUNGS: Diminished bilaterally. ABDOMEN: Soft, no tenderness. GENERAL: The patient seems to be comfortable. HEART: Normal S1 and S2. ASSESSMENT AND PLAN: 1. Severe sepsis. 2. Acute kidney injury. 3. Failure to thrive. 4. Metabolic acidosis. 5. Coronary artery disease. 6. Hypertension. 7. Benign prostatic hypertrophy. 8. Parkinson. 9. Diabetes type 2. Plan is to continue with morphine drip and optimize his medical management. Family reassured and we will follow up on the patient closely.
[2016-08-05] MEDS: MORPHINE SULFATE 100 MG in SODIUM CHLORIDE 0.9% 100 ML IV SCH (18:07)
--- NOTE | 2016-08-22 12:02 | P.DS ---
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 She was brought in to [facility] from the halfway on July 26 and was treated for acute cholecystitis status post cholecystostomy, Pseudomonas urinary tract infection with severe sepsis, septic shock. Patient was also treated for acute kidney injury. He did not respond well to treatment and continued to decline in his overall condition. Family decided to make patient comfort care and hospice referral was placed. Patient is now under inpatient hospice care. 08/04: Patient was started on morphine drip. Patient on August 05. Please see nursing documentation for details. Discharge diagnoses: 1. Acute cholecystitis and Pseudomonas urinary tract infection with severe sepsis and septic shock status post ultrasound-guided cholecystostomy-- preliminary cause of . 2. Leukocytosis secondary to severe sepsis. 3. 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 4. Severe abdominal pain with a prior history of abdominal aortic aneurysm back in 2013. 5. Severe diarrhea. 6. Anion gap metabolic acidosis as well as metabolic alkalosis. 7. Lactic acidosis. Due to sepsis 8. CAD post-PCI. 9. Hypertension and hypertensive cardiovascular disease. 10. Enlarged prostate. 11. Parkinsonism. 12. Diabetes mellitus type 2 with diabetic polyneuropathy. 13. Coagulopathy due to sepsis. Impression and plan of care have been directed as dictated by the signing physician. Linn Joseph nurse practitioner acting as scribe for signing physician. Patient Condition at Discharge: Undetermined Plan - Discharge Summary Discharge Medication List Insuln Asp Prt/Insulin Aspart [NovoLOG MIX 70-30 VIAL] 30 units SQ HS 05/29/14 [ History] Insuln Asp Prt/Insulin Aspart [NovoLOG MIX 70-30 VIAL] 35 units SQ QAM 05/29/14 [History] Lovastatin 40 mg PO HS@2100 05/29/14 [History] Metoprolol Tartrate [Lopressor] 25 mg PO BID #1 tab 06/12/14 [Rx] hydrALAZINE HCL [Apresoline] 25 mg PO BID 07/05/16 [History] Carbidopa-Levodopa 25-100 mg [Sinemet 25-100 mg] 1 tab PO BID 07/26/16 [History] Cholecalciferol [Vitamin D3] 1,000 unit PO HS 07/26/16 [History] Cyanocobalamin [Vitamin B-12] 500 mcg PO DAILY 07/26/16 [History] Midodrine HCl [ProAmatine] 10 mg PO TID 07/26/16 [History] Omeprazole 20 mg PO DAILY 07/26/16 [History] Discharge Disposition: - Preliminary Cause of Preliminary Cause of : sepsis and septic shock
== END 2016-08-05 23:30 | disposition expired | DRG 871 ==
LOC: 6ICU 14:55 → 5ONC 17:40
PROVIDERS: ADMIT Family Medicine; ATTEND Family Medicine
DX: A41.9 Sepsis, unspecified organism (principal); R65.21 Severe sepsis with septic shock; E87.4 Mixed disorder of acid-base balance; N17.9 Acute kidney failure, unspecified; K81.0 Acute cholecystitis; D68.9 Coagulation defect, unspecified; N39.0 Urinary tract infection, site not specified; E11.22 Type 2 diabetes mellitus with diabetic chronic kidney disease; E11.42 Type 2 diabetes mellitus with diabetic polyneuropathy; G20 Parkinson's disease; I13.10 Hypertensive heart and chronic kidney disease without heart failure, with stage 1 through stage 4 chronic kidney disease, or unspecified chronic kidney disease; B96.5 Pseudomonas (aeruginosa) (mallei) (pseudomallei) as the cause of diseases classified elsewhere; E78.5 Hyperlipidemia, unspecified; I25.10 Atherosclerotic heart disease of native coronary artery without angina pectoris; I25.2 Old myocardial infarction; J44.9 Chronic obstructive pulmonary disease, unspecified; K21.9 Gastro-esophageal reflux disease without esophagitis; M19.90 Unspecified osteoarthritis, unspecified site; N18.2 Chronic kidney disease, stage 2 (mild); N40.0 Benign prostatic hyperplasia without lower urinary tract symptoms; R62.7 Adult failure to thrive; Z51.5 Encounter for palliative care; Z79.4 Long term (current) use of insulin; Z79.899 Other long term (current) drug therapy; Z85.828 Personal history of other malignant neoplasm of skin; Z87.891 Personal history of nicotine dependence; Z95.5 Presence of coronary angioplasty implant and graft; Z96.652 Presence of left artificial knee joint; Z88.8 Allergy status to other drugs, medicaments and biological substances
CPT/HCPCS: 94760